=== PATIENT | male | born 1950 | race Caucasian/White ===

== ENCOUNTER 2019-12-18 09:00 | Inpatient (IN) | payer MEDICARE, BC ==
[2020-02-18] MEDS ORDERED: Fentanyl 100 MCG/2 ML VIAL ONE ×3 (06:28→14:03)
[2020-02-18] MEDS ORDERED: Famotidine/PF 20 mg/2ml Vial ONE (06:29)
[2020-02-18] MEDS ORDERED: SUGAMMADEX SODIUM 500 MG/5 ML VIAL ONE (06:29)
[2020-02-18] MEDS ORDERED: cefOXitin Sodium/Dextrose,Iso 1 GM in Premix Bag 1 BAG IVPB SCH (06:30)
[2020-02-18] MEDS ORDERED: Gentamicin Sulfate 80 MG in Premix Bag 1 BAG IVPB SCH (06:30)
[2020-02-18] MEDS ORDERED: Iothalamate Meglumine 60% 50 ML VIAL FS ONE (06:49)
[2020-02-18] MEDS ORDERED: Phenylephrine 10 MG/ML VIAL ONE (06:49)
[2020-02-18] MEDS ORDERED: Dexamethasone 4 mg/ml Vial ONE (06:57)
[2020-02-18] MEDS ORDERED: Midazolam HCl 2 mg/2 ml Vial ONE (06:57)
[2020-02-18] MEDS ORDERED: Rocuronium Bromide 50 MG/5 ML VIAL ONE (08:58)
[2020-02-18] MEDS ORDERED: Dexamethasone 20 MG/5 ML VIAL ONE (11:10)
[2020-02-18] MEDS ORDERED: Rocuronium Bromide 10 MG/ML (10ML VIAL) ONE (11:10)
[2020-02-18] MEDS ORDERED: Bupivacaine HCl 0.5%/Epinephrine 1:200,000/PF 30 ml Vial ONE (11:10)
[2020-02-18] MEDS ORDERED: Lidocaine 1% PF 5 ML VIAL ONE (11:10)
[2020-02-18] MEDS ORDERED: PROPOFOL 200 MG/20 ML VIAL ONE (11:10)
[2020-02-18] MEDS ORDERED: Ondansetron PF 4 MG/2 ML Vial ONE (11:10)
[2020-02-18] MEDS ORDERED: Metoclopramide HCl 10 MG/2 ML VIAL ONE (11:10)
[2020-02-18] MEDS ORDERED: Ketorolac Tromethamine 30 MG/ML VIAL ONE (11:10)
[2020-02-18] MEDS ORDERED: B & O ONE (13:01)
[2020-02-18] MEDS ORDERED: Ondansetron HCl/PF 4 MG/2 ML Vial IVP PRN (13:27)
[2020-02-18] MEDS ORDERED: Promethazine HCl 25 MG/ML VIAL IM PRN (13:27)
[2020-02-18] MEDS ORDERED: Promethazine HCl 25 MG/ML VIAL SLOW IVP PRN (13:27)
--- NOTE | 2020-02-18 14:44 | OP ---
DATE OF PROCEDURE: 02/18/2020 SERVICE: Urology. PREOPERATIVE DIAGNOSIS: Prostate cancer. POSTOPERATIVE DIAGNOSIS: Prostate cancer. PROCEDURES PERFORMED: 1. Robot-assisted laparoscopic prostatectomy, non-nerve sparing with bilateral pelvic lymph node dissection. 2. Cystoscopy and bilateral 6 x 26 double-J ureteral stent placement. INDICATION FOR PROCEDURE: Mr. Murphy is a 69-year-old white male, who initially had presented to md with elevated PSA and a diagnosis of prostate cancer, which was made by Dr. Alston, after a prostate biopsy. His PSA had come back at 9.7 with a Christopher score of 4 + 3 in multiple cores. We discussed his options including radiation and surgery, and the patient elected to proceed forward with robot-assisted laparoscopic prostatectomy. Risks and benefits of the surgery were discussed and he has agreed to proceed forward. DESCRIPTION OF PROCEDURE: After identification of armband and verification of consent, the patient was brought back to the operating room, where he underwent general anesthesia with endotracheal intubation. He was then placed in the dorsal lithotomy position and prepped and draped in usual sterile fashion. After appropriate time-out, a lubricated 22-Ugandan rigid cystoscope was introduced per urethra into the bladder. The prostate was hypertrophic as previously had been described on outpatient cystoscopy. The posterior bladder depression was less prominent on examination with cystoscopy today, but the ureteral orifices were very close to the prostate. As I discussed with the patient previously, I elected to proceed forward with ureteral stent placement. The right ureteral orifice was then cannulated with a 0.035 Sensor wire up to the level of renal pelvis. A 6 x 26 double-J stent was advanced over the Sensor wire up to the level of renal pelvis and then the wire was removed leaving a good curl in the kidney and a good curl in the bladder. The procedure was then repeated on the left. However, the Sensor wire would not go as it was coiling in the distal ureter. We used an angled Glidewire which passed easily into the kidney. The ureteral stent 6 x 26 was then passed over the Glidewire into the kidney and then the wire was removed leaving a good curl in the kidney and a good curl in the bladder. The bladder was left full. The cystoscope was removed. The patient was then changed to low-lithotomy position and prepped and draped in usual sterile fashion again. He was then placed in Trendelenburg with all pressure points padded. In the low-lithotomy position, a 16-Ugandan Smith catheter was introduced at the beginning of the case. Once the bladder was drained, entry into the peritoneum was gained via Veress needle at the umbilicus with insufflation carried out under low pressure and high flow until pneumoperitoneum was achieved. A small incision was made below the umbilicus using an 11-blade. A 12-mm trocar was placed into the peritoneum, and a camera was then placed inside to inspect the peritoneum which looked favorable for prostatectomy. Both medial and umbilical ligaments were in their normal location. There were no concerning findings. No bowel or vascular injuries were identified. The additional ports were then placed in the usual robotic port placement with two 8-mm robotic arms on the left and a 15-mm robotic arm on the right with an 11-mm assistant counsel port and a 5-mm system port also on the right. The robot was then docked, and the robotic portion of the surgery was then begun. We started with a posterior approach. The colon was mobilized along the left pelvic sidewall to allow for cephalad retraction. An incision was made using monopolar cautery on the anterior reflection of the rectovesical space. Dissection was carried out in that space until the vas deferens were identified. The vas and seminal vesicles were then dissected using a combination of blunt dissection and monopolar cautery. Once these were completely dissected out, anterior dissection was performed until they were flush with the prostate. The posterior space was then developed below Den[place]villiers on the perirectal fat until there was a nice plane developed posteriorly as well. There was minimal bleeding encountered, so we did not leave any type of Surgicel. The attention was then turned to the anterior abdominal wall. Incisions were made on the lateral aspect of each umbilical ligament into the space of Retzius, which were then dissected free until the pubic arch was identified. The umbilical ligaments were then divided using bipolar cautery and then monopolar cautery, arching over to connect the 2 umbilical ligaments on the anterior abdominal wall. Dissection was then carried out anterior to the bladder along the space of Retzius until the entire bladder had been dropped and the pubic arch was identified. The periprostatic space was then dissected with a combination of blunt dissection and monopolar cautery until both endopelvic fascias were identified. The superficial venous complex was controlled using bipolar cautery and division. The preprostatic fat was off the prostate and then submitted for routine pathologic evaluation. The patient's right endopelvic fascia was then opened and the periprosthetic space developed. The left was then in the same fashion and developed as well. The puboprostatic ligaments were both divided after cautery with bipolar and then monopolar for division. This left a relatively thin dorsal venous complex. The vascular stapler was brought in and clamped over the dorsal venous complex. On initial clamp, there did seem to be some difficulty passing the catheter back in, so the stapler was repositioned a little bit more proximal, which resulted in easy passage of the catheter indicating no urethral compression. The stapler was then fired, resulting in nice division of the DVC without any bleeding. Attention was then turned to the bladder neck. Given how the close proximity of the ureters as well as a posterior depression of the bladder, I did opt to make a wider bladder neck than normal. Dissection was carried down a little bit more proximal than a standard dissection plane until we came down towards the tip of the balloon. The bladder neck was not excessively large, but it did allow for nice visual entry of both stents emanating from the ureters and the remainder of the posterior dissection. The posterior aspect of the prostate was then divided using monopolar cautery until the previously dissected space posteriorly was identified. The seminal vesicles were then brought up and the pedicles thinned out. The posterior plane was developed further. The pedicles were divided on each side using the vessel sealer approximately 2[address] the apex of the prostate. At that point, the sharp scissors were then just used without cautery to divide the remainder of the pedicles to avoid thermal injury to the rectum, which is in close proximity of that location. The urethra was then dissected free and divided extremely proximal as close to the prostate as possible to preserve urethral length and sphincter control. Once the urethra was fully divided, the rectourethralis muscles were then divided using sharp dissection to avoid thermal injury to the rectum. Ultimately, the prostate was able to be freed and deposited into the right pericolic gutter. There was some bleeding noted at the left and right aspects near the distal aspect of the pedicle, which were controlled with touch bipolar, which resulted in good control of bleeding. Surgicel was then laid down and the lymph node dissection was performed. Bilateral pelvic lymph node dissections were performed with a combination of the monopolar scissors, [place] bipolars and vessel sealer when appropriate. The margins of the lymph node dissection on both sides were the iliac vein cephalad, superior pubic ramus inferiorly, circumflex femoral vein anteriorly, and the obturator nerve posteriorly. All fatty tissue containing lymph nodes were removed and submitted for pathologic evaluation. At this point, I did elect to narrow down the bladder neck as it did seem rather large and had some thin areas. Using a 2-0 Vicryl on an SH needle, sutures were placed on the right lateral aspect and the 12 o'clock position on the bladder neck until the bladder neck appeared a little bit smaller and more circumferential. A Gokul stitch was then placed using a 2-0 V-Loc through the rectourethralis and the base of the bladder and then approximated to line up and provide posterior support for the anastomosis. At this point, we were able to reach inside the bladder and remove both stents so that the patient would not have to keep these in during his recovery. The anastomosis was then completed using a 2-0 V-Loc circumferentially in a running fashion starting at approximately 5 o'clock and using 2 arms to meet at approximately 11 o'clock. The anastomosis was then water tested by passing a catheter in without the balloon inflated and filling up the bladder to approximately 200 to 300 mL, at which point there was no identifiable leak at the anastomosis site. The catheter was then switched out for the final 18-Ugandan Smith catheter and 15 mL of sterile water was placed into the balloon. The anastomosis sutures were tied off. Tisseel spray was then placed around the periprosthetic space and along bilateral pelvic lymph nodes. The prostate and fatty tissues that were still left within the body were deposited into an Endopouch bag and then kept off to the side. The third arm was removed and a #19 KINGS drain was placed into the peritoneum and placed posterior to the bladder. The robot was then undocked and the Endopouch handle was passed through the peritoneum from the assistant counsel port through the camera port. The 15-mm trocar site and 11-mm assistant counsel trocar sites were then closed with a Robert-Kiah until there was no ability to pass a finger digitally through the incision site. The KINGS was then sutured down using a 3-0 nylon. The incision in the center where the camera port was, was extended laterally to allow for delivery of the prostate and lymph node tissues bilaterally. This had all been sent for routine pathologic evaluation. The fascia was then closed in a series of [id number] interrupted 0 Vicryl on a UR6 needle. This was then digitally palpated and there were no gaps found after complete closure of the fascia. There was a lot of fatty tissue in between to avoid the space. I did close the potential space using another 0 Vicryl. The skin was then closed with a 4-0 Monocryl in a subcuticular fashion and all port sites. The catheter was irrigated and found to be light pink. This was then hooked up to gravity drainage. The KINGS was hooked up to bulb suction. B and O suppository was placed into the patient's rectum by the surgeon with no blood on the examining gloved finger. The patient was then taken out of positioning, awakened, and taken to PACU for recovery in stable condition. COMPLICATIONS: None. ESTIMATED BLOOD LOSS: 100 mL. RETAINED TUBES AND DRAINS: An 18-Ugandan Smith catheter, #19 KINGS drain. SPECIMENS: Prostate, bilateral seminal vesicles, bilateral pelvic lymph nodes, and preprostatic fat. DISPOSITION: The patient will be kept in the hospital overnight. We will plan a KINGS removal tomorrow so long as the amount of drainage is not excessive and he has met all criteria for discharge to go safely home. Job ID: [id number]
[2020-02-18] MEDS ORDERED: Mag-Al 1200 mg/1200 mg/30 ML UDCUP PO PRN (15:07)
[2020-02-18] MEDS ORDERED: Hyoscyamine Sulfate SL 0.125 mg Tablet SL PRN (15:07)
[2020-02-18] MEDS ORDERED: diphenhydrAMINE 25 MG CAP PO PRN (15:07)
[2020-02-18] MEDS ORDERED: Sodium Chloride 0.9% 1,000 ML IV SCH (15:07)
[2020-02-18] MEDS ORDERED: Oxybutynin 5 MG TAB PO PRN (15:07)
[2020-02-18] MEDS ORDERED: hydrALAZINE 20 MG/ML VIAL SLOW IVP PRN (15:07)
[2020-02-18] MEDS ORDERED: Ondansetron PF 4 MG/2 ML Vial IVP PRN (15:07)
[2020-02-18] MEDS ORDERED: oxyCODONE 5 MG TAB PO PRN (15:07)
[2020-02-18] MEDS ORDERED: Fentanyl 100 MCG/2 ML VIAL SLOW IVP PRN (15:07)
[2020-02-18 15:52] VITALS: BMI 30.1
[2020-02-18] MEDS: traMADol HCl 50 MG TAB PO SCH ×2 (16:25→20:30)
[2020-02-18] MEDS ORDERED: cefOXitin 1.5 GM in Sodium Chloride 0.9% 100 ML IVPB SCH (17:00)
[2020-02-18] MEDS: Acetaminophen 500 MG TAB PO SCH ×2 (17:44→23:37)
[2020-02-18] MEDS: cefOXitin Sodium/Dextrose,Iso 1 GM in Premix Bag 1 BAG IVPB SCH (18:08)
[2020-02-18] MEDS: Docusate 100 MG CAP PO SCH (20:30)
[2020-02-18] MEDS: Ketorolac Tromethamine 30 MG/ML VIAL IVP SCH (21:55)
[2020-02-19] MEDS: cefOXitin Sodium/Dextrose,Iso 1 GM in Premix Bag 1 BAG IVPB SCH ×2 (01:41→11:21)
[2020-02-19] MEDS: traMADol HCl 50 MG TAB PO SCH ×3 (03:35→15:01)
[2020-02-19 05:16] LABS: Anion Gap 14 mmol/L (10-20); BUN (Urea Nitrogen) 12 mg/dL (8.4-25.7); Calc. Creatinine Clearance 84 mL/min (70-130); Calcium 8.2 mg/dL (7.8-10.44); Carbon Dioxide 20 mmol/L (23-31); Chloride 105 mmol/L (98-107); Estimated GFR-MDRD 62; Glucose 115 mg/dL (80-115); Potassium 4.8 mmol/L (3.5-5.1); Sodium 134 mmol/L (136-145)
[2020-02-19 06:15] LABS: Band 23 % (5-11); Hemoglobin 14.1 g/dL (14.0-18.0); Lymphocytes 6 % (21-51); MDiff Complete? YES; Mean Corpuscular HGB CONC 33.2 g/dL (32.0-36.0); Mean Corpuscular Volume 99.3 fL (78.0-98.0); Mean Platelet Volume 7.1 fL (7.4-10.4); Monocytes 8 % (0-10); Neutrophil 63 % (42-75); Platelet Count 258 thou/uL (130-400); Platelet Morphology Comment Appears Adequate; RBC Distribution Width 11.2 % (11.5-14.5); Red Blood Cell (RBC) Count 4.27 mill/uL (4.70-6.10); White Blood Cell (WBC) Count 25.2 thou/uL (4.8-10.8)
[2020-02-19] MEDS: Ketorolac Tromethamine 30 MG/ML VIAL IVP SCH ×2 (06:18→15:00)
[2020-02-19] MEDS: Acetaminophen 500 MG TAB PO SCH ×2 (06:19→11:21)
[2020-02-19] MEDS: Docusate 100 MG CAP PO SCH (08:14)
[2020-02-19 11:57] VITALS: BP 129/82; TEMP 98.1
--- NOTE | 2020-02-19 16:48 | PRG ---
DATE OF SERVICE: 02/19/2020 SUBJECTIVE: The patient states he is feeling fine. His pain is approximately 4 /10. He feels this is adequately controlled. He is not taking any additional pain medication. He is tolerating a liquid diet. He states that he is hungry and ready to eat a regular diet. No flatus. No nausea or vomiting. No chest pain or shortness of breath. OBJECTIVE: VITAL SIGNS: Temperature 98.1, pulse 97, respirations 18, blood pressure 129/82, and saturation 96% on room air. GENERAL: No apparent distress. Communicative and alert. CARDIOVASCULAR: Regular rate and rhythm. ABDOMEN: Soft, nontender, and nondistended. Positive bowel sounds. Incision is clean, dry, and intact. KINGS with scant serosanguineous output, it was recently emptied. GENITOURINARY: Smith catheter secured currently with light red translucent urine without clots. EXTREMITIES: No clubbing, cyanosis, or edema. LABORATORY EVALUATION: Full set of labs are in the [facility], which I have reviewed. Of note, the patient's white count is 25.2, hemoglobin of 14.1. Creatinine of 1.17. KINGS was sent for creatinine prior to removing since bladder neck reconstruction was performed. KINGS creatinine came back at 5.6. ASSESSMENT AND PLAN: A 69-year-old white male with prostate cancer, status post robotic prostatectomy, postop day 1. There is evidence of urine within the peritoneum. This either could be due to a urine leak, which is less likely secondary to patient being leak tested intraoperatively and finding no actual leak or likely leftover urine from his surgery, which is just now coming out. In either case, there is some concern for a possible urine leak, so I will go ahead and leave the KINGS in as well as his Smith catheter. We will have him monitor his KINGS output over the next week and if it decreases enough, I think we can take the KINGS drain out. This should avoid paralytic ileus and urine within the peritoneum. The patient has already been up out of bed. He is tolerating a clear diet and thinks he could tolerate regular food. He has already demonstrated that he can walk around and the rest of his labs look okay. While his white count is significantly elevated, this can be seen postoperatively and the patient has no other signs or symptoms on physical exam or by history for infection. His incisions look good. I think he can be discharged home today and can follow up on an outpatient basis. He should go home with his Smith catheter and KINGS drain. Job ID: [id number] MTDD
--- NOTE | 2020-02-22 09:35 | DIS ---
DATE OF ADMISSION: 02/18/2020 DATE OF DISCHARGE: 02/19/2020 ADMITTING PHYSICIAN: Dr. Bautista. DISCHARGING PHYSICIAN: Dr. Bautista. ADMITTING DIAGNOSIS: Prostate cancer. DISCHARGE DIAGNOSIS: Prostate cancer. PROCEDURE PERFORMED WHILE INPATIENT: Cystoscopy with bilateral ureteral stents and robot-assisted laparoscopic prostatectomy, and bilateral pelvic lymph node dissection. BRIEF HISTORY: Mr. Murphy is a 69-year-old white male with prostate cancer, [place] 4 + 3, PSA of 9.7, diagnosed by Dr. Alston, who was referred to me for robotic prostatectomy. He is now coming in for the surgery. The full H and P can be found in the scanned portion of the [employer] system. HOSPITAL COURSE: After surgery (please see operative note for details), the patient was admitted to the hospital for postoperative recovery. He was placed on the ERAS protocol with tramadol, Tylenol, and Toradol scheduled. He had oxycodone and fentanyl needed p.r.n., but he did not require any of these. He was started on a clear liquid diet immediately, which he tolerated well without any problems. He was advanced to a regular diet, which he was able to tolerate without any issues. He was able to get up and walk around on his own. He demonstrated adequate ability to take care of his catheter. His pain was adequately controlled and stated that he was ready to go home. Due to reconstruction of the bladder neck, we did check a KINGS for creatinine, which came back elevated at 5.6, which was higher than serum. While it is still not convinced that this is due to a urine leak at the anastomosis site, I suspect this is most likely left over urine within the peritoneum. Nonetheless, I told the patient it would be best to keep the KINGS drain in as well as Smith catheter, and we could remove the KINGS drain at a later date when output had decreased. The patient was okay with this, and his prescriptions were sent in. Discharge instructions were explained to him, and he was discharged home. DISPOSITION: Discharge to home with Smith catheter. DISCHARGE CONDITION: Good. DISCHARGE MEDICATIONS: Include resuming his home medications which is just a multivitamin. In addition, he will be given; 1. [place] 5/325 mg p.o. q.4 hours p.r.n. pain. 2. Colace 100 mg p.o. daily. 3. Levofloxacin 500 mg p.o. x1 to take 2 hours prior to his followup appointment. DISCHARGE INSTRUCTIONS: Discharge instructions were explained the patient as well as detailed instructions for catheter care, bathing, dieting, and activity. I will see him back in approximately 10 to 11 days for a followup, at which time, we will plan to remove his KINGS drain catheter so long as his KINGS drain is putting out only small amounts of urine. Job ID: [id number]
== END 2020-02-19 16:30 | disposition home or self-care (01) | DRG 708 ==
LOC: SURG A 02-18 05:44 → EDSTATUS 02-18 09:00 → SJJU 02-18 15:20
PROVIDERS: ADMIT Urology; ATTEND Urology
PROC: 0VT04ZZ Resection of Prostate, Percutaneous Endoscopic Approach (ICD-10-PCS; principal; 2020-02-18)
PROC: 07BC4ZZ Excision of Pelvis Lymphatic, Percutaneous Endoscopic Approach (ICD-10-PCS; 2020-02-18)
PROC: 0T788DZ Dilation of Bilateral Ureters with Intraluminal Device, Via Natural or Artificial Opening Endoscopic (ICD-10-PCS; 2020-02-18)
PROC: 8E0W4CZ Robotic Assisted Procedure of Trunk Region, Percutaneous Endoscopic Approach (ICD-10-PCS; 2020-02-18)
DX: C61 Malignant neoplasm of prostate (principal)
CPT/HCPCS: 36415; 80048; 82570; 85025; 86850; 86900; 86901; C1758; C1769; J0670; J0694; J1100; J1885; J2001; J2250; J2370; J2405; J2704; J2765; J3010; S0028

== ENCOUNTER 2020-02-10 06:40 | Outpatient (CLI) | payer MEDICARE, BC ==
[2020-02-10 10:23] LABS: Hemoglobin 14.8 g/dL (14.0-18.0); Mean Corpuscular HGB CONC 33.3 g/dL (32.0-36.0); Mean Corpuscular Hemoglobin 32.9 pg (27.0-31.0); Mean Corpuscular Volume 98.8 fL (78.0-98.0); Platelet Count 307 thou/uL (130-400); RBC Distribution Width 11.3 % (11.5-14.5); Red Blood Cell (RBC) Count 4.51 mill/uL (4.70-6.10); White Blood Cell (WBC) Count 7.2 thou/uL (4.8-10.8)
[2020-02-10 10:24] LABS: Bacteria/HPF None Seen HPF (None Seen); Bilirubin Negative (Negative); Blood, Urine Negative (Negative); Clarity Clear (Clear); Glucose, Urine (Dipstick) Normal (Negative); Leukocyte Negative Leu/uL (Negative); Nitrite Negative (Negative); Protein, Urine (Dipstick) Negative (Neg-Trace); RBC/HPF 0-3 HPF (0-3); Squamous Epithelial 0-3 HPF (0-3); Urobilinogen Normal mg/dL (Less than 2); WBC/HPF 0-3 HPF (0-3)
[2020-02-10 10:33] LABS: INR-International Normal Ratio 0.9; PTT 28.2 SEC (22.9-36.1); Prothrombin Time 12.4 SEC (12.0-14.7)
[2020-02-10 10:45] LABS: ALT (SGPT) 21 U/L (8-55); AST (SGOT) 22 U/L (5-34); Albumin 4.4 g/dL (3.4-4.8); Alkaline Phosphatase 69 U/L (40-110); Anion Gap 13 mmol/L (10-20); BUN (Urea Nitrogen) 11 mg/dL (8.4-25.7); Bilirubin, Total 0.3 mg/dL (0.2-1.2); Calc. Creatinine Clearance 0 mL/min (70-130); Calcium 9.5 mg/dL (7.8-10.44); Carbon Dioxide 27 mmol/L (23-31); Chloride 103 mmol/L (98-107); Estimated GFR-MDRD 65; Globulin 2.9 g/dL (2.4-3.5); Glucose 97 mg/dL (80-115); Potassium 4.2 mmol/L (3.5-5.1); Protein, Total 7.3 g/dL (5.8-8.1); Sodium 139 mmol/L (136-145)
--- NOTE | 2020-02-10 22:46 | EKG ---
Test Reason : PREOP Blood Pressure : / mmHG Vent. Rate : 081 BPM Atrial Rate : 081 BPM P-R Int : 154 ms QRS Dur : 076 ms QT Int : 356 ms P-R-T Axes : 080 019 051 degrees QTc Int : 413 ms Poor data quality, interpretation may be adversely affected Normal sinus rhythm Normal ECG No previous ECGs available Confirmed by Yohannes PATEL ([id number]) on 02/10/2020 10:46:23 PM Referred By: VIPIN Confirmed By:Yohannes PATEL
== END 2020-02-10 06:41 | disposition home or self-care (01) ==
LOC: LABBT 06:40
PROVIDERS: ATTEND Urology
DX: Z01.818 Encounter for other preprocedural examination (principal); C61 Malignant neoplasm of prostate
CPT/HCPCS: 80053; 81001; 85027; 85610; 85730; 87086; 93005; 93010

== ENCOUNTER 2020-02-22 17:43 | Inpatient (IN) | payer MEDICARE, BC ==
[~2020-02-22 17:43] MED LIST: Iopamidol-370 76% 500 ML 1 ML ONE
[2020-02-22] MEDS ORDERED: Ondansetron PF 4 MG/2 ML Vial ONE (18:11)
[2020-02-22 18:23] LABS: Bilirubin Negative (Negative); Blood, Urine 3+ (Negative); Clarity Extra Turbid (Clear); Glucose, Urine (Dipstick) Normal (Negative); Leukocyte 500 Leu/uL (Negative); Nitrite Negative (Negative); Protein, Urine (Dipstick) 300 mg/dL (Neg-Trace); RBC/HPF Greater than 50 HPF (0-3); Squamous Epithelial None Seen HPF (0-3); Urobilinogen Normal mg/dL (Less than 2); WBC/HPF Greater than 50 HPF (0-3)
[2020-02-22 18:40] LABS: #Lymphocytes 0.9 thou/uL (1.20-3.40); #Monocytes 0.8 thou/uL (0.11-0.59); %Basophils 0.1 % (0.0-1.0); %Eosinophils 0.2 % (0.0-10.0); %Lymphocytes 13.7 % (21.0-51.0); %Monocytes 11.5 % (0.0-10.0); %Neutrophils 74.5 % (42.0-75.0); Hemoglobin 14.4 g/dL (14.0-18.0); Mean Corpuscular HGB CONC 33.3 g/dL (32.0-36.0); Mean Corpuscular Hemoglobin 32.9 pg (27.0-31.0); Mean Corpuscular Volume 98.8 fL (78.0-98.0); Mean Platelet Volume 7.3 fL (7.4-10.4); Platelet Count 265 thou/uL (130-400); RBC Distribution Width 11.4 % (11.5-14.5); Red Blood Cell (RBC) Count 4.39 mill/uL (4.70-6.10); White Blood Cell (WBC) Count 6.7 thou/uL (4.8-10.8)
[2020-02-22 19:06] LABS: Bacteria/HPF 3+ HPF (None Seen)
[2020-02-22 19:14] LABS: ALT (SGPT) 52 U/L (8-55); AST (SGOT) 26 U/L (5-34); Albumin 3.5 g/dL (3.4-4.8); Alkaline Phosphatase 56 U/L (40-110); Anion Gap 17 mmol/L (10-20); BUN (Urea Nitrogen) 25 mg/dL (8.4-25.7); Calc. Creatinine Clearance 0 mL/min (70-130); Calcium 9.8 mg/dL (7.8-10.44); Carbon Dioxide 24 mmol/L (23-31); Chloride 97 mmol/L (98-107); Estimated GFR-MDRD 62; Globulin 3.3 g/dL (2.4-3.5); Glucose 128 mg/dL (80-115); Lipase 7 U/L (8-78); Potassium 4.9 mmol/L (3.5-5.1); Protein, Total 6.8 g/dL (5.8-8.1); Sodium 133 mmol/L (136-145)
[2020-02-22] MEDS ORDERED: Benzocaine 20% Spray 60 ML CAN ONE (19:55)
[2020-02-22] MEDS ORDERED: Lidocaine Viscous Sol 2% 15 ml UD Cup ONE (19:55)
--- NOTE | 2020-02-22 20:36 | CT ---
CT ABDOMEN AND PELVIS WITH IV CONTRAST: Date: 02-22-2020 Provided Clinical History: Nausea, vomiting, PO intolerance. History of recent prostatectomy. FINDINGS: The visualized lung bases are clear of significant opacity. Pneumoperitoneum is noted. There are multiple foci of subcutaneous gas within the abdominal wall, gre atest left laterally. There is a drainage catheter extending percutaneously, entering at the left low er quadrant and tip terminating in the right lower quadrant. A Smith catheter is noted in place. The urinary bladder is decompressed. There are fat stranding changes seen within the pelvis rather diffus genoveva. Sigmoid colonic diverticulosis changes are seen. There are multiple dilated loops of fluid and gas filled small bowel, predominately involving the jej unum and proximal ileum with gradual tapering of the more normal caliber distally in the region of th e mid to distal ileum. The colon demonstrates stool within as well as gas. The solid abdominal organs demonstrate an unremarkable CT appearance. There is no significant free ab dominal fluid present. The osseous structures demonstrate no concerning lytic or blastic lesions. IMPRESSION: 1. Pneumoperitoneum, presumably on the basis of indwelling catheter. 2. Numerous loops of dilated gas and fluid filled small bowel without abrupt discrete transition zone . Findings may reflect ileus versus low grade obstruction. 3. Generalized fat stranding changes in the pelvis, presumably on the basis of the provided clinical history of recent surgical change in this region. POS: DARCIE
[2020-02-22] MEDS ORDERED: Morphine 4 MG/ML VIAL ONE (20:50)
[2020-02-22 21:38] LABS: Lactic Acid 2.1 mmol/L (0.5-2.2)
[2020-02-22] MEDS ORDERED: Morphine 4 MG/ML VIAL SLOW IVP PRN (21:43)
--- NOTE | 2020-02-22 22:08 | RAD ---
PORTABLE CHEST: Date: 02-22-2020 Provided Clinical History: NG tube placement. FINDINGS: Cardiac and mediastinal silhouette is within normal limits. Lungs appear clear. No pleural fluid or p neumothorax apparent. Enteric catheter is noted, the tip projects over the left upper quadrant. The l musa apices are excluded, limiting evaluation for pneumothorax. IMPRESSION: As above. POS: DARCIE
[2020-02-22] MEDS: Sodium Chloride 0.9% 1,000 ML IV SCH (22:14)
[2020-02-23] MEDS: Sodium Chloride 0.9% 1,000 ML IV SCH ×4 (05:33→18:24)
[2020-02-23] MEDS ORDERED: Ondansetron PF 4 MG/2 ML Vial IVP PRN (08:16)
[2020-02-23] MEDS ORDERED: Morphine 4 MG/ML VIAL IV PRN (08:17)
[2020-02-23] MEDS: cefTRIAXone\\ROCEPHIN 1 GM in Sodium Chloride 0.9% 100 ML IVPB SCH (08:50)
[2020-02-23] MEDS ORDERED: Chloraseptic Spray 180 ml Bottle PO PRN (08:53)
--- NOTE | 2020-02-23 09:09 | HP ---
CHIEF COMPLAINT ON ADMISSION: Postoperative ileus. HISTORY OF PRESENT ILLNESS: The patient is a 69-year-old male, who underwent radical prostatectomy on 02/18/2020. He had a typical postoperative course and had a good bowel movement on 02/18. However, since that time, he has had increasing abdominal pain, distention, tenderness. No more bowel movements until finally the pain became so great. He came to the ER for further evaluation and the reason for his surgery was prostate cancer. His surgeon was Dr. Devon Bautista and the surgery was done robotically. Beginning the day prior to admission, the nausea became extreme with vomiting and by the time he came to the emergency room, he was unable to hold anything down orally and now he has hiccups, which are extremely painful as well. In the ER, CT scan confirmed the concern for postop ileus versus intraabdominal wound infection. Ward-Mai drain is present and draining pink serosanguineous fluid. There are bowel sounds present at this time, but the patient is unable to pass flatus. He is put in for further evaluation. PAST MEDICAL HISTORY: Significant for the aforementioned prostate cancer, for which he just underwent the radical prostatectomy. Other than that, his medical history is benign. His tetanus immunizations are up-to-date. Pneumococcal vaccine is up-to-date. PAST SURGICAL HISTORY: The only surgery has been the prostatectomy. PSYCHIATRIC HISTORY: Denied. SOCIAL HISTORY: Does not drink alcoholic beverages or smoke. ALLERGIES: CODEINE, WHICH IS MAINLY A SIDE EFFECT OF UPSET STOMACH AND NAUSEA. MEDICATIONS: None. REVIEW OF SYSTEMS: CONSTITUTIONAL: Significant for fatigue, but no fever or chills. HEENT: No drainage from eyes, ears, nose, or throat. CHEST: Denies chest pain or palpitations. RESPIRATORY: Denies cough or shortness of breath. Gastrointestinal: Significant for nausea, vomiting, right upper quadrant abdominal pain. GENITOURINARY: Significant for Smith in place with mild blood in urine. MUSCULOSKELETAL: Denies any joint redness, pain, stiffness, or swelling. SKIN: No new rashes or lesions. Ecchymotic areas of bruising noted at incision sites. NEUROLOGIC: Mentally alert. Denies weakness, blurred vision, or headaches. PSYCHIATRIC: Denies depression or anxiety at this time. PHYSICAL EXAMINATION: VITAL SIGNS: At the time of admission, blood pressure 155/101, pulse 107, respirations 19, and temperature 98.2. Pain at 7/10. O2 saturation 99% on room air. GENERAL: This is a well-developed, well-nourished, male, alert, oriented, cooperative. HEENT: Normocephalic, atraumatic. Pupils are equal, round, and reactive to light. Extraocular muscles are intact. TMs, nares, and pharynx clear. NECK: Supple. Trachea midline. CHEST: Clear to auscultation. HEART: Regular rate and rhythm. Tachycardic. ABDOMEN: Diffuse incisions noted. Healing slowly with ecchymosis. Tender to palpation with guarding and mild rebound. There is right upper quadrant tenderness. There are bowel sounds noted, high-pitched in all quadrants. GENITOURINARY: Normal circumcised male with Smith in place. Both testicles down. EXTREMITIES: Without clubbing, cyanosis, or edema. SKIN: With the aforementioned incision sites and bruising, otherwise no acute changes. NEUROLOGICAL: Cranial nerves are intact, unable to test gait and cerebellar function. Sensory exam is grossly intact. Mental status is clear and at baseline. LABORATORY DATA: Lab work thus far shows WBC 6.7, hemoglobin 14.4, hematocrit 43.3 with platelets at 265. Sodium 133, potassium 4.9, chloride 97, CO2 is 24, BUN 25, creatinine 1.17 with a GFR 62, and glucose 128. Lactic acid 2.1 x2. Liver functions unremarkable. Calcium 9.8. Urinalysis shows 3+ blood, ketones are noted, 500 leukocyte esterase with wbc's greater than 50. ASSESSMENT: 1. Postoperative ileus - mild. Bowel sounds are present. 2. Urinary tract infection, creating possible mild ileus due to its severity. 3. Prostate cancer, status post prostatectomy, postoperative day #5. PLAN: Will be to use antibiotics for the urinary tract infection. Can keep his bowels at rest by n.p.o. status and NG tube and serially re-evaluate the patient. Job ID: [id number]
[2020-02-23] MEDS: Pantoprazole 40 MG VIAL IVP SCH ×2 (11:04→23:16)
[2020-02-23] MEDS ORDERED: Morphine 2 MG/ML SYRINGE SLOW IVP PRN (13:50)
[2020-02-23] MEDS ORDERED: Ibuprofen 600 MG TAB PO PRN (16:40)
--- NOTE | 2020-02-23 18:19 | PRG ---
DATE OF SERVICE: 02/23/2020 SUBJECTIVE: The patient states he is no longer nauseated. He is still having a mild amount of pelvic discomfort after his surgery. He has not passed any gas. He unfortunately was readmitted to the hospital after he began vomiting on Saturday. He was found on CT scan to have a postoperative ileus and had an NG tube placed. This continues to put out a moderate amount of succus as reported below. OBJECTIVE: VITAL SIGNS: Temperature 98.4, pulse 84, respirations 20, blood pressure 156/74, saturation 98% on room air. GENERAL: No apparent distress, communicative, alert. HEENT: NG tube in place draining brownish succus. CARDIOVASCULAR: Regular rate and rhythm. ABDOMEN: Soft, nondistended. Hypoactive bowel sounds. Incision is clean, dry, and intact. Mild ecchymosis. Mildly tender to palpation. : Smith catheter in place secured with draining clear yellow urine. EXTREMITIES: No clubbing, cyanosis, or edema. LABORATORY EVALUATION: A full set of labs are in the [facility] system, which I have reviewed. Of note, the patient's white count is 6.7, hemoglobin of 14.4, creatinine of 1.17, KINGS for creatinine is 1.05. In's and out's: Smith has put out 500 mL. NG tube was put out 800 mL. KINGS drain has put out 80 mL. ASSESSMENT AND PLAN: A 69-year-old white male, status post robot assisted laparoscopic prostatectomy, postoperative day 5 with postoperative ileus. We would recommend continuing the NG tube for the current time until the amount of succus decreases. Potentially remove tube tomorrow if the succus amount is less. His KINGS has no evidence of urine leak anymore and is only putting out small amounts of fluid. I would recommend removal of the KINGS drain, which will help limit inflammation and improve his resolution of his ileus. Narcotic pain medication should be discontinued, but he can have anti-inflammatories and acetaminophen, which should not interfere with his ileus recovery. He should also ambulate as much as possible. Once he begins passing flatus, we can start clear liquids and then progress to a regular diet as tolerated until he is back to eating regular food at which point, I do feel that he will be able to be discharged home. Of note, the patient's pathology results came back today, which I have discussed with the patient. For now, everything looks good and we will plan for PSA in approximately 6 weeks. Job ID: [id number]
--- NOTE | 2020-02-23 18:51 | CON ---
DATE OF CONSULTATION: 02/23/2020 CONSULTING PHYSICIAN: Garrett Yung MD REASON FOR CONSULTATION: Suspected postoperative ileus/abdominal pain. HISTORY OF PRESENT ILLNESS: The patient is a 69-year-old very pleasant white male. He underwent a robotic prostatectomy per Dr. Bautista on February 17. He was discharged home the following day. There was an elevated creatinine level in drain output of fluid and therefore he was discharged with his Ward-Mai drain in place. His pathology revealed his cancer was T2N0. He had noted over the past few days that he developed progressive abdominal discomfort and bloating and eventually began vomiting, at which time he returned to the operating room. He notes that he has been taking his prescribed tramadol on schedule every 6 hours. He denies any recent bowel function. In the emergency room, he had a CT scan performed, which revealed findings consistent with a postoperative ileus with distention of small bowel without definite transition point. LABORATORY STUDIES: Revealed a normal white blood cell count of 6.7 with a hemoglobin of 14.4. His electrolytes showed mildly decreased sodium and chloride levels. His fluid creatinine within the drain is 1.0 (down from 5.6 four days ago). PAST MEDICAL HISTORY: Significant for prostate cancer. PAST SURGICAL HISTORY: None other than the prostatectomy. MEDICATIONS: None. ALLERGIES: CODEINE. SOCIAL HISTORY: He is with 2 children. He is retired from working at the [employer]. He does not drink or smoke. REVIEW OF SYSTEMS: Otherwise unremarkable. FAMILY HISTORY: Noncontributory. PHYSICAL EXAMINATION: VITAL SIGNS: Temperature is 98.3, pulse 78, blood pressure 143/82. GENERAL: A well-developed, well-nourished, pleasant white male, resting in bed, in no obvious distress. He is alert and oriented x3. Nasogastric tube is in place. It is noted that his nasogastric tube drained 800 mL after it was placed yesterday. Smith catheter is also in place draining clear urine. HEAD, EYES, EARS, NOSE AND THROAT: Unremarkable. NECK: Supple. LUNGS: Clear to auscultation throughout. CARDIAC: Regular rate and rhythm without murmur. ABDOMEN: Soft and nontender. Incisions are healing nicely. Dermabond is intact. Bowel sounds are present, hypoactive to normoactive. There is no evidence of tympany. RECTAL: Deferred. EXTREMITIES: Unremarkable. ASSESSMENT: The patient with resolving postoperative ileus. I flushed his nasogastric tube, it returned only clear fluid. This suggests that bilious fluid is progressing in anterograde fashion. He does have intact bowel sounds. I suspect that his problem is related to excessive use of tramadol at home. He understands the potential side effects of narcotics and is trying to avoid using any pain medication here in the hospital. As he has resumption of bowel sounds, I would recommend a small-bowel follow-through tomorrow. If contrast passes as I anticipate it will, then the nasogastric tube can be removed and his diet advanced. He is encouraged to ambulate today while he is in the hospital as well. He was started on Protonix. He is complaining of indigestion and reflux. Job ID: [id number]
[2020-02-23] MEDS: Acetaminophen 650 MG Suppository PR PRN (19:30)
[2020-02-24] MEDS: Ibuprofen 100 MG/5 ML UDCUP PER TUBE PRN ×2 (00:52→09:19)
[2020-02-24] MEDS: Sodium Chloride 0.9% 1,000 ML IV SCH ×3 (02:00→18:27)
[2020-02-24] MEDS: Acetaminophen 650 MG Suppository PR PRN ×3 (02:00→18:27)
[2020-02-24 05:51] LABS: Anion Gap 13 mmol/L (10-20); BUN (Urea Nitrogen) 28 mg/dL (8.4-25.7); Calc. Creatinine Clearance 50 mL/min (70-130); Calcium 8.4 mg/dL (7.8-10.44); Carbon Dioxide 26 mmol/L (23-31); Chloride 107 mmol/L (98-107); Estimated GFR-MDRD 40; Glucose 92 mg/dL (80-115); Potassium 4.7 mmol/L (3.5-5.1); Sodium 141 mmol/L (136-145)
[2020-02-24 06:28] LABS: Band 7 % (5-11); Hemoglobin 12.1 g/dL (14.0-18.0); Hypochromia SLIGHT = 6-15 cells (100X) (0-5/hpf); Lymphocytes 30 % (21-51); MDiff Complete? YES; Macrocytosis SLIGHT = 6-15 cells (100X) (0-5/hpf); Mean Corpuscular HGB CONC 31.4 g/dL (32.0-36.0); Mean Corpuscular Hemoglobin 31.9 pg (27.0-31.0); Monocytes 8 % (0-10); Neutrophil 55 % (42-75); Platelet Count 290 thou/uL (130-400); Platelet Morphology Comment Appears Adequate; RBC Distribution Width 11.6 % (11.5-14.5); White Blood Cell (WBC) Count 7.3 thou/uL (4.8-10.8)
[2020-02-24] MEDS: cefTRIAXone\\ROCEPHIN 1 GM in Sodium Chloride 0.9% 100 ML IVPB SCH (08:28)
[2020-02-24] MEDS: Pantoprazole 40 MG VIAL IVP SCH ×2 (10:00→22:47)
[2020-02-24] MEDS ORDERED: MD-Gastroview 120 ML BOT ONE (13:05)
--- NOTE | 2020-02-24 17:02 | RAD ---
Exam: Gastrografin small bowel HISTORY: Evaluate for small bowel obstruction versus ileus FINDINGS: Initial material control analyst radiograph demonstrates a nasogastric tube in the epigastric region. Multiple distended air-filled loops of small bowel. Paucity of gas in the colon. Patient was administered Gastrografin which opacifies multiple distended loops of small bowel. There is contrast opacifying th e colon on the 4 hour as well as the 5 hour 30 minute images. Incidental subcutaneous emphysema on the left lateral abdominal soft tissues is noted. IMPRESSION: No evidence of high-grade small bowel obstruction.
--- NOTE | 2020-02-24 17:07 | PRG ---
DATE OF SERVICE: 02/24/2020 SUBJECTIVE: Mr. Murphy is seen one day after my initial consultation yesterday. I felt that he had a resolving ileus. He had active bowel sounds yesterday. Even before his study was obtained today, he has had a history of loose bowel movements. I decided to proceed with the study anyways. Small-bowel follow-through was initiated this morning. After a couple of hours, he still had substantial evident dilated small bowel and the contrast had not passed. He was having some bowel movement, which was clearly not the contrast. I therefore ordered Clostridium difficile studies to see if this is perhaps . OBJECTIVE: VITAL SIGNS: On examination, afebrile. Vital signs are normal with a pulse of 60, blood pressure of . ABDOMEN: Soft and nontender. Incisions are healing nicely. Bowel sounds are present and normoactive. EXTREMITIES: Unremarkable. RECTAL: Exam is deferred. LABORATORY DATA: His CBC remains essentially normal with a white blood cell count of 7 and hemoglobin of 12. Chemistry panel reveals that his creatinine is elevated at 1.7 up from 1.2 at admission. ASSESSMENT AND PLAN: The patient with either a bowel obstruction or slowly resolving ileus. I will continue the small-bowel follow-through today and if necessary, obtain abdominal x-rays tomorrow as well. It would be unusual for a person, who has never had surgery prior to his robotic prostatectomy to have an obstructive process related to that surgery and I am hoping/anticipating that this will resolve spontaneously. Job ID: [id number]
--- NOTE | 2020-02-24 17:32 | PRG ---
DATE OF SERVICE: 02/24/2020 SUBJECTIVE: The patient reports that his KINGS drain was removed yesterday. He continues to have the NG tube. He had an abdominal x-ray today, which demonstrates no evidence of high-grade obstruction. The patient reports passing a lot of gas and having two episodes of liquidy bowel movements. He still does not have a strong appetite. OBJECTIVE: VITAL SIGNS: Temperature 97.9, pulse 64, respirations 16, blood pressure 167/95, saturation 94% on room. GENERAL: No apparent distress. Communicative and alert. CARDIOVASCULAR: Regular rate and rhythm. Normal S1 and S2. HEENT: NG tube in place with brownish succus in the canister. ABDOMEN: Soft and nondistended. Incision is clean, dry, and intact with surrounding ecchymosis. No evidence of infection or hernia. : Smith catheter in place, draining a turbid brown urine. EXTREMITIES: No clubbing, cyanosis, or edema. LABORATORY EVALUATION: The full set of labs is in the [employer] system, which I have reviewed. Of note, the patient's white count is 7.3, hemoglobin 12.1. Creatinine has increased up to 1.71. ASSESSMENT AND PLAN: A 69-year-old white male with postoperative ileus, which does appear to be somewhat resolving. Given his liquidy bowel movement, a Clostridium difficile antigen has been sent off, which is currently pending for the PCR. It does appear that he may have Clostridium difficile antigens present. At the current time, we would recommend ongoing management of his ileus by Dr. Reyes. Hopefully, he will be able to have his NG tube removed very soon as he is passing liquidy bowel movements, although it is unclear whether his small bowel is completely opened up at this point. From a genitourinary standpoint, the patient does have elevation in his creatinine. If this persists, I would recommend getting a renal ultrasound to ensure that there is no hydronephrosis and perhaps consideration of further replacement of his fluids. From my standpoint, he does appear to be doing well from a genitourinary standpoint other than the minor acute kidney injury. I will continue to follow along and make recommendations as appropriate. Job ID: [id number]
[2020-02-25] MEDS: Vancomycin 1 GM in Premix Bag 1 BAG IVPB SCH ×2 (00:49→12:06)
[2020-02-25] MEDS: Sodium Chloride 0.9% 1,000 ML IV SCH ×2 (00:49→09:36)
[2020-02-25] MEDS: Ibuprofen 100 MG/5 ML UDCUP PER TUBE PRN (06:45)
--- NOTE | 2020-02-25 08:57 | RAD ---
Abdomen one view HISTORY: Abdominal pain. Obstruction. COMPARISON: 02/24/2020 small bowel follow-through. FINDINGS: Contrast is now present throughout the colon without significant residual contrast in the s mall bowel. Gas distended small bowel loops in the left upper quadrant again demonstrated. Nasogastric tube in place. IMPRESSION : Continued passage of contrast. No evidence of obstruction.
[2020-02-25] MEDS ORDERED: Sodium Chloride 0.9% 1,000 ML IV SCH (11:07)
[2020-02-25] MEDS: Vancomycin HCl 25 MG/ML Oral PO SCH ×2 (12:06→17:50)
--- NOTE | 2020-02-25 12:30 | PRG ---
DATE OF SERVICE: 02/25/2020 SUBJECTIVE: The patient states he is feeling okay. He is still having bowel movements. His C diff test end up being positive, which probably would explain why he is having an ileus. He has good bowel sounds. He otherwise has no other complaints. OBJECTIVE: VITAL SIGNS: Temperature 98.6, pulse 57, respirations 16, blood pressure 158/82, saturation 95% on room air. GENERAL: No apparent distress. Communicative and alert. CARDIOVASCULAR: Regular rate and rhythm. ABDOMEN: Soft, nontender, and nondistended. Positive bowel sounds. Incision is clean, dry, and intact. GENITOURINARY: Smith catheter in place, draining mostly clear yellow urine. EXTREMITIES: No edema. LABORATORY EVALUATION: The patient's labs have not yet been drawn today. He does have a BMP ordered, which has yet to be drawn. ASSESSMENT AND PLAN: A 69-year-old white male with prostate cancer, status post robotic prostatectomy with postoperative ileus, which is likely secondary to Clostridium difficile infection. He is currently being treated with vancomycin for his Clostridium difficile. This will be managed by General Surgery, Dr. Reyes, who is following along with the patient. His nasogastric tube has already been removed. I will allow advancement of his diet by General Surgery. From my standpoint, there is not really much else for me to do on his current admission. I would like to know what his creatinine is to ensure that it is improving. If it continues to rise, I would recommend a renal ultrasound and consultation to Nephrology. It is extremely unlikely to be absorption of urine from the peritoneum as the patient did not have evidence of urine leak by his second Ward-Mai for creatinine. The patient already has followup with me as an outpatient for his void trial. Job ID: [id number]
--- NOTE | 2020-02-25 13:05 | PRG ---
DATE OF SERVICE: 02/25/2020 SUBJECTIVE: Mr. Murphy is hospital day #4 for his admission for what is still presumed to be a postoperative ileus. Yesterday, when he was having his small bowel follow-through, he began to have liquid bowel movements that were clearly not contrast related. I therefore submitted stool for Clostridium difficile, which have proved to be positive on both antigen and antibody. The patient had been placed on ceftriaxone when he was admitted and I discontinued this yesterday. The patient was started on oral vancomycin this morning. He tells me that he has had some multiple liquid bowel movements yesterday as the contrast passed through his colon. His nasogastric tube was removed this morning and I started him on a clear liquid diet. He has no specific complaints. OBJECTIVE: VITAL SIGNS: He is afebrile. Vital signs were essentially normal. LUNGS: Clear to auscultation. ABDOMEN: Soft with normoactive bowel sounds and incisions healing nicely. LABORATORY DATA: His CBC from yesterday was essentially normal, although his chemistry profile showed that his creatinine had elevated from 1.17 at the time of admission up to 1.71. I ordered a repeat basic metabolic panel for this morning and has not been obtained yet. Apparently, he was found to be a difficult stick by the stopboard assembler. ASSESSMENT AND PLAN: The patient with a postoperative ileus, that I suspect is secondary to his Clostridium difficile colitis. He will be maintained on oral vancomycin and a clear liquid diet for now. His x-ray from this morning still shows dilated loops of small bowel and I am therefore somewhat concerned about his ability to maintain adequate hydration with oral intake alone and for this reason, we will continue IV fluids. Repeat labs have been ordered for tomorrow. I encouraged him to drink liquids to the extent that he is comfortable. I also encouraged ambulation around the Surgical floor multiple times per day. Job ID: [id number]
[2020-02-25 14:14] LABS: Anion Gap 15 mmol/L (10-20); BUN (Urea Nitrogen) 21 mg/dL (8.4-25.7); Calc. Creatinine Clearance 80 mL/min (70-130); Calcium 8.5 mg/dL (7.8-10.44); Carbon Dioxide 22 mmol/L (23-31); Chloride 112 mmol/L (98-107); Estimated GFR-MDRD 68; Glucose 111 mg/dL (80-115); Potassium 4.3 mmol/L (3.5-5.1); Sodium 145 mmol/L (136-145)
[2020-02-25] MEDS ORDERED: D5 LR w/20 mEq KCL 1,000 ML IV SCH (16:00)
[2020-02-25] MEDS ORDERED: Preparation H HC 1% Cream 26 GM TUBE TOP PRN (16:32)
[2020-02-25] MEDS: Ibuprofen 600 MG TAB PO PRN (17:50)
[2020-02-25] MEDS ORDERED: Hydrocortisone 1% Cream 30 GM TUBE TOP PRN (18:00)
[2020-02-25] MEDS: Pantoprazole 40 MG VIAL IVP SCH (18:38)
[2020-02-25] MEDS: Acetaminophen 500 MG TAB PO PRN (22:06)
[2020-02-25] MEDS ORDERED: Vancomycin HCl 1 GM in Sodium Chloride 0.9% 250 ML 250 ML IVPB SCH (23:30)
[2020-02-26] MEDS: Vancomycin HCl 25 MG/ML Oral PO SCH ×5 (00:28→23:33)
[2020-02-26] MEDS: Ibuprofen 600 MG TAB PO PRN ×4 (02:22→23:33)
[2020-02-26 05:25] LABS: #Eosinphils 0.1 thou/uL (0.0-0.7); #Lymphocytes 1.7 thou/uL (1.20-3.40); #Neutrophils 7.3 thou/uL (1.40-6.50); %Basophils 0.2 % (0.0-1.0); %Eosinophils 0.8 % (0.0-10.0); %Lymphocytes 16.7 % (21.0-51.0); %Neutrophils 72.3 % (42.0-75.0); Hemoglobin 11.3 g/dL (14.0-18.0); Mean Corpuscular HGB CONC 33.2 g/dL (32.0-36.0); Mean Corpuscular Hemoglobin 33.2 pg (27.0-31.0); Mean Platelet Volume 6.9 fL (7.4-10.4); Platelet Count 277 thou/uL (130-400); RBC Distribution Width 11.3 % (11.5-14.5); Red Blood Cell (RBC) Count 3.39 mill/uL (4.70-6.10); White Blood Cell (WBC) Count 10.1 thou/uL (4.8-10.8)
[2020-02-26 05:32] LABS: Anion Gap 10 mmol/L (10-20); BUN (Urea Nitrogen) 19 mg/dL (8.4-25.7); Calc. Creatinine Clearance 80 mL/min (70-130); Calcium 7.9 mg/dL (7.8-10.44); Carbon Dioxide 25 mmol/L (23-31); Chloride 107 mmol/L (98-107); Estimated GFR-MDRD 68; Glucose 109 mg/dL (80-115); Potassium 3.3 mmol/L (3.5-5.1); Sodium 139 mmol/L (136-145)
[2020-02-26] MEDS ORDERED: Pantoprazole 40 MG VIAL IVP SCH (09:00)
[2020-02-26] MEDS ORDERED: Potassium Chloride 40 MEQ in Premix Bag 1 BAG IVPB SCH (11:45)
[2020-02-26] MEDS ORDERED: Potassium Chloride 40 MEQ in Sodium Chloride 0.9% 250 ML 250 ML IVPB SCH (11:45)
--- NOTE | 2020-02-26 13:35 | PDOC.GSPN ---
Surgery Progress Note: Subj - Subjective Narrative: Patient with severe abdominal cramping intermittently since 10:00 last night. He has not had any nausea or vomiting and still feels hungry and is still passing gas however. He does not feel like his abdomen is any more distended. No diarrhea since yesterday. No fevers or chills. Vital signs are okay. Abdomen is distended with bowel sounds present. Somewhat tympanitic over the upper abdomen. Very mild diffuse tenderness. Incisions look good. Assessment/plan: 1: Partial small bowel obstruction versus ileus. He has had significant increase in crampy abdominal pain intermittently since starting clear liquids and I have made him n.p.o. again today. He has not eaten a complete meal since Saturday of last week so I have requested a PICC line for TPN. I have ordered repeat abdominal imaging for tomorrow morning. Going to hold off on an NG tube for now since he does not have any nausea. 2.: C. difficile colitis. He is on oral vancomycin which is appropriate but since his bowel function is impaired I am going to add IV Flagyl in addition. Surgery Progress Note: Obj - Vital signs Vital signs: Vital Signs - Most Recent Temp Pulse Resp BP Pulse Ox 97.8 F 69 18 154/84 H 96 02/26/20 10:34 02/26/20 10:34 02/26/20 10:34 02/26/20 10:34 02/26/20 10:34 Surgery Progress Note: Results - Labs Result Diagrams: 02/26/20 04:45 02/26/20 04:45 Lab results: Laboratory Results - last 24 hr 02/26/20 02/26/20 04:45 04:45 WBC 10.1 RBC 3.39 L Hgb 11.3 L Hct 33.9 L MCV 100.0 H MCH 33.2 H MCHC 33.2 RDW 11.3 L Plt Count 277 MPV 6.9 L Neutrophils % 72.3 Lymphocytes % 16.7 L Monocytes % 10.0 Eosinophils % 0.8 Basophils % 0.2 Neutrophils # 7.3 H Lymphocytes # 1.7 Monocytes # 1.0 H Eosinophils # 0.1 Basophils # 0.0 Sodium 139 Potassium 3.3 L Chloride 107 Carbon Dioxide 25 Anion Gap 10 BUN 19 Creatinine 1.08 Estimated GFR (MDRD) 68 Glucose 109 Calcium 7.9
[2020-02-26] MEDS: metroNIDAZOLE 500 MG in Premix Bag 1 BAG IVPB SCH ×3 (18:31→23:33)
[2020-02-26] MEDS: Amino Acids 4.25 %/Dextrose 5% 1,000 ML IV SCH (20:52)
[2020-02-27 04:21] LABS: #Eosinphils 0.3 thou/uL (0.0-0.7); #Lymphocytes 2.2 thou/uL (1.20-3.40); #Monocytes 1.1 thou/uL (0.11-0.59); #Neutrophils 8.9 thou/uL (1.40-6.50); %Basophils 0.3 % (0.0-1.0); %Eosinophils 2.1 % (0.0-10.0); %Lymphocytes 17.5 % (21.0-51.0); %Monocytes 8.6 % (0.0-10.0); %Neutrophils 71.5 % (42.0-75.0); Hemoglobin 11.7 g/dL (14.0-18.0); Mean Corpuscular HGB CONC 33.5 g/dL (32.0-36.0); Mean Corpuscular Hemoglobin 33.4 pg (27.0-31.0); Mean Corpuscular Volume 99.5 fL (78.0-98.0); Mean Platelet Volume 6.8 fL (7.4-10.4); Platelet Count 289 thou/uL (130-400); RBC Distribution Width 11.3 % (11.5-14.5); White Blood Cell (WBC) Count 12.4 thou/uL (4.8-10.8)
[2020-02-27 04:25] LABS: Anion Gap 9 mmol/L (10-20); BUN (Urea Nitrogen) 15 mg/dL (8.4-25.7); Calc. Creatinine Clearance 102 mL/min (70-130); Calcium 7.8 mg/dL (7.8-10.44); Carbon Dioxide 24 mmol/L (23-31); Chloride 109 mmol/L (98-107); Estimated GFR-MDRD 90; Glucose 105 mg/dL (80-115); Potassium 3.3 mmol/L (3.5-5.1); Sodium 139 mmol/L (136-145)
[2020-02-27] MEDS: Vancomycin HCl 25 MG/ML Oral PO SCH ×3 (05:44→18:29)
[2020-02-27] MEDS: Ibuprofen 600 MG TAB PO PRN ×3 (05:44→18:33)
[2020-02-27] MEDS: metroNIDAZOLE 500 MG in Premix Bag 1 BAG IVPB SCH ×3 (05:44→18:28)
--- NOTE | 2020-02-27 08:58 | RAD ---
ABDOMEN TWO VIEWS: HISTORY: Partial small bowel obstruction versus ileus. COMPARISON: 02/25/20 FINDINGS: Supine and decubitus views of the abdomen show multiple air-filled loops of small bowel. Air is seen in the colon. No free air is seen on the decubitus film. Air-fluid levels are seen within the small b owel loops. IMPRESSION: Distended loops of small bowel may be secondary to a bowel obstruction or ileus. POS: [facility]
[2020-02-27] MEDS ORDERED: Lidocaine 2% 11 ML SYR TOP SCH (11:00)
[2020-02-27] MEDS ORDERED: Potassium Chloride 40 MEQ in Sodium Chloride 0.9% 250 ML 250 ML IVPB SCH (11:15)
[2020-02-27] MEDS ORDERED: Enoxaparin Sodium 40 MG/0.4 ML SYRINGE SC SCH (11:30)
--- NOTE | 2020-02-27 15:37 | PDOC.GSPN ---
Surgery Progress Note: Subj - Subjective Narrative: Patient continues to have diffuse abdominal discomfort although not the severe crampy pain that he was having on clear liquids. He continues to pass some gas but is also burping a lot. No nausea. One bowel movement yesterday which was liquid. His abdomen is distended and tympanitic and more tender to palpation than yesterday, although this is diffuse with no focal findings. Potassium is still low and this was replaced. Assessment/plan: Partial small bowel obstruction versus ileus. I reviewed all of his previous imaging and I favor partial small bowel obstruction over ileus. He has not tolerated advancement of diet and I did discuss proceeding to the operating room today for laparoscopic lysis of adhesions but the patient does not want to do this. I therefore recommended replacement of the NG tube to see if we can decompress the bowels and get the obstruction to resolve. He was agreeable to this and NG tube placement was ordered. We had previously discussed PICC line placement and TPN yesterday and he was agreeable to this. Unfortunately I found out later that interventional radiology was not available until Saturday. I returned and discussed central venous catheter placement with the patient but he did not want this placed so we compromised and I put him on PPN instead. I will check nutritional labs tomorrow. I feel the patient is relatively unlikely to respond to conservative management but he wants to give this 1 more try. I will likely obtain a CT with oral contrast tomorrow. Surgery Progress Note: Obj - Vital signs Vital signs: Vital Signs - Most Recent Temp Pulse Resp BP Pulse Ox 98.1 F 78 16 138/90 96 02/27/20 12:08 02/27/20 12:08 02/27/20 12:08 02/27/20 12:08 02/27/20 12:08 Surgery Progress Note: Results - Labs Result Diagrams: 02/27/20 03:50 02/27/20 03:50 Lab results: Laboratory Results - last 24 hr 02/27/20 02/27/20 03:50 03:50 WBC 12.4 H RBC 3.50 L Hgb 11.7 L Hct 34.8 L MCV 99.5 H MCH 33.4 H MCHC 33.5 RDW 11.3 L Plt Count 289 MPV 6.8 L Neutrophils % 71.5 Lymphocytes % 17.5 L Monocytes % 8.6 Eosinophils % 2.1 Basophils % 0.3 Neutrophils # 8.9 H Lymphocytes # 2.2 Monocytes # 1.1 H Eosinophils # 0.3 Basophils # 0.0 Sodium 139 Potassium 3.3 L Chloride 109 H Carbon Dioxide 24 Anion Gap 9 L BUN 15 Creatinine 0.84 Estimated GFR (MDRD) 90 Glucose 105 Calcium 7.8
--- NOTE | 2020-02-27 16:20 | RAD ---
SUPINE ABDOMEN: 02/27/20 INDICATIONS: NG tube placement. FINDINGS/IMPRESSION: NG tube passes through the EG junction and tip is in the left upper quadrant, gastric fundal region. Gas filled dilated loops of small bowel indicates small bowel obstruction. There is some scattered ga s in the colon. POS: [facility]
[2020-02-27] MEDS: Acetaminophen 500 MG TAB PO PRN (18:35)
[2020-02-27] MEDS: Amino Acids 4.25 %/Dextrose 5% 1,000 ML IV SCH (21:10)
[2020-02-27] MEDS: Pantoprazole 40 MG VIAL IVP SCH (21:25)
[2020-02-28] MEDS: metroNIDAZOLE 500 MG in Premix Bag 1 BAG IVPB SCH ×4 (00:16→18:16)
[2020-02-28] MEDS: Ibuprofen 600 MG TAB PO PRN ×3 (00:16→18:24)
[2020-02-28] MEDS: Vancomycin HCl 25 MG/ML Oral PO SCH ×4 (00:16→18:16)
[2020-02-28] MEDS: Acetaminophen 500 MG TAB PO PRN ×3 (00:31→18:24)
[2020-02-28 06:43] LABS: #Basophils 0.1 thou/uL (0.0-0.2); #Eosinphils 0.1 thou/uL (0.0-0.7); #Lymphocytes 2.3 thou/uL (1.20-3.40); #Neutrophils 14.8 thou/uL (1.40-6.50); %Basophils 0.4 % (0.0-1.0); %Eosinophils 0.5 % (0.0-10.0); %Lymphocytes 12.8 % (21.0-51.0); %Monocytes 5.3 % (0.0-10.0); %Neutrophils 81.1 % (42.0-75.0); Hemoglobin 14.6 g/dL (14.0-18.0); Mean Corpuscular HGB CONC 33.6 g/dL (32.0-36.0); Mean Corpuscular Hemoglobin 33.1 pg (27.0-31.0); Mean Corpuscular Volume 98.4 fL (78.0-98.0); Mean Platelet Volume 6.6 fL (7.4-10.4); PTT 25.2 SEC (22.9-36.1); Platelet Count 369 thou/uL (130-400); Prothrombin Time 13.4 SEC (12.0-14.7); RBC Distribution Width 11.5 % (11.5-14.5); Red Blood Cell (RBC) Count 4.41 mill/uL (4.70-6.10); White Blood Cell (WBC) Count 18.3 thou/uL (4.8-10.8)
[2020-02-28 06:58] LABS: ALT (SGPT) 31 U/L (8-55); AST (SGOT) 19 U/L (5-34); Albumin 3.3 g/dL (3.4-4.8); Alkaline Phosphatase 56 U/L (40-110); Anion Gap 11 mmol/L (10-20); BUN (Urea Nitrogen) 20 mg/dL (8.4-25.7); Bilirubin, Total 0.7 mg/dL (0.2-1.2); Calc. Creatinine Clearance 74 mL/min (70-130); Calcium 8.1 mg/dL (7.8-10.44); Carbon Dioxide 25 mmol/L (23-31); Chloride 104 mmol/L (98-107); Estimated GFR-MDRD 60; Globulin 2.7 g/dL (2.4-3.5); Glucose 102 mg/dL (80-115); Phosphorus 2.2 mg/dL (2.3-4.7); Potassium 3.4 mmol/L (3.5-5.1); Sodium 137 mmol/L (136-145)
[2020-02-28] MEDS: Enoxaparin Sodium 40 MG/0.4 ML SYRINGE SC SCH (10:04)
[2020-02-28] MEDS: Pantoprazole 40 MG VIAL IVP SCH ×2 (10:04→20:22)
[2020-02-28] MEDS: Potassium Chloride 20 MEQ in Premix Bag 1 BAG IVPB SCH ×2 (10:04→13:55)
[2020-02-28] MEDS ORDERED: Sodium Chloride 0.9% 500 ML IV SCH (10:15)
[2020-02-28] MEDS ORDERED: GASTROGRAFIN 30 ML BOT ONE (11:40)
[2020-02-28] MEDS ORDERED: Iopamidol-370 76% 500 ML 1 ML ONE (11:40)
--- NOTE | 2020-02-28 14:24 | CT ---
CT ABDOMEN AND PELVIS: Date: 02/28/2020 COMPARISON: 02/22/2020. HISTORY: Ileus/obstruction. TECHNIQUE: Axial CT imaging at 5 mm intervals from lung bases through pubic symphysis with intravenous and oral contrast. Coronal reformatted imaging obtained. FINDINGS: Small bilateral pleural effusions are noted with mild adjacent volume loss. There is a nasogastric tu be extending into the gastric body. Scattered foci of gas noted within the subcutaneous fat at the axial level of the hips and proximal f emora, as well as along the lateral aspect of the left abdominal wall, less conspicuous than on the 0 examination. The prior exam demonstrated free intraperitoneal air, which is not apparent on this study. There is a Smith catheter within a decompressed urinary bladder. There is new small volume free fluid adjacent to the liver and spleen. There is small volume free flu id in the pelvis, new as well. Postsurgical drainage catheter present on the prior exam has been renetta seth. There is mild distention of the gallbladder. Gallbladder is not well assessed on this exam. The liver , spleen, pancreas, adrenal glands, and kidneys demonstrate no acute findings. There is extensive sigmoid diverticulosis without evidence for diverticulitis. There is extensive prominent distention of small bowel throughout the abdomen/pelvis, including multi ple dilated fluid-filled loops of small bowel throughout the abdomen/pelvis. The degree of gaseous di stention, as well as dilated fluid-filled small bowel appears to have increased when compared to the 02/22/2020 examination. Of note, there are a few distal decompressed small bowel loops within the rig ht lower quadrant, best seen on axial image 68. In the right lower quadrant, there is transition from decompressed distal small bowel to distended fluid-filled small bowel, including distal small bowel loops proximal to this containing fecal material. These findings suggest high grade small bowel obstr uction with transition point in the right lower quadrant. There is fluid within the colon. The colon is not distended. No lymphadenopathy is apparent within the abdomen/pelvis. The vascular structures o f the abdomen/pelvis appear unremarkable. No acute osseous abnormality. IMPRESSION: Interval worsening of diffuse small bowel distention. There are a few distal decompressed small bowel loops in the region of the terminal ileum suggesting high grade small bowel obstruction with transit ion point in the right lower quadrant. There is new small volume bilateral pleural effusions and ther e is new small volume free fluid within the abdomen/pelvis. POS: [facility]
--- NOTE | 2020-02-28 16:24 | PDOC.GSPN ---
Surgery Progress Note: Subj - Subjective Narrative: When I saw the patient this morning he was really not feeling any better. He continued to have crampy abdominal discomfort although he was passing gas and had a small bowel movement this morning. He was still tympanitic and uncomfortable with palpation and distended so I recommended repeating his CT with contrast. This was done and shows persistent small bowel obstruction with worsening dilation of the proximal bowel loops. He has some free fluid but the free air has resolved and I do not see any evidence of abscess formation. His white count had gone up somewhat but he has not had any fevers. His albumin is low but his prealbumin was normal. Since returning from CT his NG tube has been hooked back up to suction that he has filled the canister. He has also had a large bowel movement and feels like his abdominal discomfort is less. Assessment/plan: Persistent partial small bowel obstruction with worsening bowel distention on CT today. The patient states that he is feeling better since having a large bowel movement but I think that he is unlikely to improve enough to advance his diet and remove the NG tube. We are going to continue with NG decompression overnight and if he has not significantly improved in the morning he is agreeing to proceed with laparoscopic possible open lysis of adhesions. He is also willing to have a central line placed under anesthesia for TPN. I will place him on the schedule for tomorrow for either myself or Dr. Reyes. Surgery Progress Note: Obj - Vital signs Vital signs: Vital Signs - Most Recent Temp Pulse Resp BP Pulse Ox 98.1 F 71 16 155/85 H 98 02/28/20 15:10 02/28/20 15:10 02/28/20 15:10 02/28/20 15:10 02/28/20 15:10 Surgery Progress Note: Results - Labs Result Diagrams: 02/28/20 06:25 02/28/20 06:25 Lab results: Laboratory Results - last 24 hr 02/28/20 02/28/20 02/28/20 06:25 06:25 06:25 WBC 18.3 H RBC 4.41 L Hgb 14.6 Hct 43.4 MCV 98.4 H MCH 33.1 H MCHC 33.6 RDW 11.5 Plt Count 369 MPV 6.6 L Neutrophils % 81.1 H Lymphocytes % 12.8 L Monocytes % 5.3 Eosinophils % 0.5 Basophils % 0.4 Neutrophils # 14.8 H Lymphocytes # 2.3 Monocytes # 1.0 H Eosinophils # 0.1 Basophils # 0.1 PT INR APTT Sodium 137 Potassium 3.4 L Chloride 104 Carbon Dioxide 25 Anion Gap 11 BUN 20 Creatinine 1.20 Estimated GFR (MDRD) 60 Glucose 102 Calcium 8.1 Phosphorus 2.2 L Magnesium 2.0 Total Bilirubin 0.7 AST 19 ALT 31 Alkaline Phosphatase 56 Serum Total Protein 6.0 Albumin 3.3 L Globulin 2.7 Albumin/Globulin Ratio 1.2 Prealbumin 20.0 02/28/20 06:25 WBC RBC Hgb Hct MCV MCH MCHC RDW Plt Count MPV Neutrophils % Lymphocytes % Monocytes % Eosinophils % Basophils % Neutrophils # Lymphocytes # Monocytes # Eosinophils # Basophils # PT 13.4 INR 1.0 APTT 25.2 Sodium Potassium Chloride Carbon Dioxide Anion Gap BUN Creatinine Estimated GFR (MDRD) Glucose Calcium Phosphorus Magnesium Total Bilirubin AST ALT Alkaline Phosphatase Serum Total Protein Albumin Globulin Albumin/Globulin Ratio Prealbumin
[2020-02-28] MEDS: Amino Acids 4.25 %/Dextrose 5% 1,000 ML IV SCH (18:16)
[2020-02-29] MEDS: metroNIDAZOLE 500 MG in Premix Bag 1 BAG IVPB SCH ×4 (00:26→18:09)
[2020-02-29] MEDS: Vancomycin HCl 25 MG/ML Oral PO SCH ×4 (00:31→18:09)
[2020-02-29 06:49] LABS: #Basophils 0.1 thou/uL (0.0-0.2); #Eosinphils 0.3 thou/uL (0.0-0.7); #Lymphocytes 1.6 thou/uL (1.20-3.40); #Monocytes 1.2 thou/uL (0.11-0.59); #Neutrophils 13.5 thou/uL (1.40-6.50); %Basophils 0.4 % (0.0-1.0); %Eosinophils 1.5 % (0.0-10.0); %Lymphocytes 9.7 % (21.0-51.0); %Neutrophils 81.4 % (42.0-75.0); Hemoglobin 13.7 g/dL (14.0-18.0); Mean Corpuscular HGB CONC 33.8 g/dL (32.0-36.0); Mean Corpuscular Hemoglobin 33.4 pg (27.0-31.0); Mean Corpuscular Volume 98.9 fL (78.0-98.0); Mean Platelet Volume 6.5 fL (7.4-10.4); Platelet Count 389 thou/uL (130-400); RBC Distribution Width 11.6 % (11.5-14.5); Red Blood Cell (RBC) Count 4.11 mill/uL (4.70-6.10); White Blood Cell (WBC) Count 16.6 thou/uL (4.8-10.8)
[2020-02-29 07:13] LABS: Anion Gap 11 mmol/L (10-20); BUN (Urea Nitrogen) 18 mg/dL (8.4-25.7); Calc. Creatinine Clearance 93 mL/min (70-130); Calcium 7.8 mg/dL (7.8-10.44); Carbon Dioxide 23 mmol/L (23-31); Chloride 106 mmol/L (98-107); Estimated GFR-MDRD 80; Glucose 119 mg/dL (80-115); Potassium 3.6 mmol/L (3.5-5.1); Sodium 136 mmol/L (136-145)
[2020-02-29] MEDS: Pantoprazole 40 MG VIAL IVP SCH ×2 (08:28→21:58)
[2020-02-29] MEDS: Enoxaparin Sodium 40 MG/0.4 ML SYRINGE SC SCH (09:04)
--- NOTE | 2020-02-29 10:34 | RAD ---
Exam: Abdomen 2 views HISTORY: Small bowel obstruction versus ileus FINDINGS: Paucity of gas in the colon. Multiple distended air-filled loops of small bowel with differ ential air-fluid levels. The possibility of a small bowel obstruction is raised. No pneumoperitoneum on the upright projection. Nasogastric tube terminates in the epigastric region. IMPRESSION: 1. Radiographic findings worrisome for small bowel obstruction.
[2020-02-29] MEDS ORDERED: PROPOFOL 200 MG/20 ML VIAL ONE (11:52)
[2020-02-29] MEDS ORDERED: Succinylcholine Chloride 20 MG/ML 10 ml SYRINGE FS ONE (11:52)
[2020-02-29] MEDS ORDERED: Metoclopramide HCl 10 MG/2 ML VIAL ONE (11:52)
[2020-02-29] MEDS ORDERED: Ondansetron PF 4 MG/2 ML Vial ONE (11:52)
[2020-02-29] MEDS ORDERED: PHENYLEPHRINE-NS 100 MCG/ML 10 ML SYRINGE ONE (11:52)
[2020-02-29] MEDS ORDERED: EPHEDRINE 25 MG/5 ML SYRINGE ONE (11:52)
[2020-02-29] MEDS ORDERED: Lidocaine 1% PF 5 ML VIAL ONE (11:52)
[2020-02-29] MEDS ORDERED: Dexamethasone 20 MG/5 ML VIAL ONE (11:52)
[2020-02-29] MEDS ORDERED: Glycopyrrolate 0.2 MG/ML 5 ML SYRINGE ONE (11:52)
[2020-02-29] MEDS ORDERED: Rocuronium Bromide 10 MG/ML (10ML VIAL) ONE (11:52)
[2020-02-29] MEDS ORDERED: Fentanyl 100 MCG/2 ML VIAL ONE (14:38)
[2020-02-29] MEDS ORDERED: Lidocaine 2% Jelly 5 ML TUBE ONE (14:39)
[2020-02-29] MEDS ORDERED: Bupivacaine 0.25% HCL 30 ML VIAL ONE (14:40)
[2020-02-29] MEDS ORDERED: Lidocaine 1% w/Epinephrine 1:100K 20 ML VIAL ONE (14:40)
[2020-02-29] MEDS ORDERED: Sodium Chloride 0.9% 20 ML ONE (14:43)
[2020-02-29] MEDS ORDERED: Promethazine HCl 25 MG/ML VIAL IM PRN (16:40)
[2020-02-29] MEDS ORDERED: Promethazine HCl 25 MG/ML VIAL SLOW IVP PRN (16:40)
[2020-02-29] MEDS ORDERED: Ondansetron HCl/PF 4 MG/2 ML Vial IVP PRN (16:40)
--- NOTE | 2020-02-29 17:11 | RAD ---
Chest one view HISTORY: Central line placement. COMPARISON: 02/22/2020. FINDINGS: Cardiac silhouette is magnified by projection. Pulmonary vasculature is unremarkable. Mediastinum is midline. A new left subclavian central venous catheter tip projects over the superior vena cava. No evidence of pneumothorax. Horizontal density at the left lateral lung base is favored to represent atelectasis or overlying artifact rather than pleural fluid, as the left hemidiaphragm remains visible. No evidence of pneumothorax. Nasogastric tube remains in place. IMPRESSION : Left subclavian central venous catheter is in good radiographic position. New left lateral lung base linear atelectasis.
[2020-02-29] MEDS: Ibuprofen 600 MG TAB PO PRN (18:12)
[2020-02-29] MEDS: [UNRECOGNIZED DRUG - OTHER] IV SCH (21:58)
[2020-02-29] MEDS: SODIUM ACETATE IV SCH (21:58)
[2020-02-29] MEDS: MULTIVITAMINS IV SCH (21:58)
[2020-03-01] MEDS: metroNIDAZOLE 500 MG in Premix Bag 1 BAG IVPB SCH ×5 (00:43→23:58)
[2020-03-01] MEDS: Ibuprofen 600 MG TAB PO PRN ×4 (00:43→21:42)
[2020-03-01] MEDS: Vancomycin HCl 25 MG/ML Oral PO SCH ×5 (00:44→23:58)
--- NOTE | 2020-03-01 00:47 | OP ---
DATE OF PROCEDURE: 02/29/2020 PREOPERATIVE DIAGNOSIS: Suspected small bowel obstruction. POSTOPERATIVE DIAGNOSIS: No evidence of small bowel obstruction. No small bowel adhesions at all. A small amount of herniated fatty tissue through a defect in the left abdominal wall. Malnutrition. PROCEDURE PERFORMED: Placement of left subclavian triple-lumen 7-Jamaican central line. Diagnostic laparoscopy. ANESTHESIA: General endotracheal. INDICATIONS: The patient is a 69-year-old white male. He is status post robotic prostatectomy on February 17. He returned on postoperative day #5 with nausea and vomiting and has been hospitalized since that time. He was initially suspected to have a postoperative ileus. He was subsequently diagnosed with Clostridium difficile colitis. In spite of appropriate treatment of all underlying issues, he has had no resolution of his abdominal distention, nausea, vomiting, etc. X-ray from today still shows multiple markedly dilated loops of small bowel. CT scan from yesterday showed what was felt to be a distal small bowel obstruction. He was taken to the operating at this time for laparoscopic evaluation. DESCRIPTION OF OPERATION: Informed consent was obtained. The patient was taken to the operating room, where general endotracheal anesthesia was obtained. Patient in supine position. Abdomen was prepped with ChloraPrep and draped in sterile fashion. Local anesthetic was infiltrated and a 5 mm left upper abdominal incision was created through which a Veress needle was passed the peritoneal cavity. Pneumoperitoneum established. He has carbon dioxide inside up to pressure of 15 mmHg. A 5 mm trocar port was passed through the same incision. Laparoscopic camera was passed this port. Under direct vision, I placed a 5 mm port at a prior robotic port site in his right mid abdomen. There was some fatty tissue herniated through the left lateral robotic port site. This was bluntly reduced. I then placed a 5 mm port through the left lateral robotic port site. I then performed a thorough laparoscopic evaluation. There were diffuse dilated loops of small bowel. I turned my attention initially to the cecum. This was also quite distended as was the entire right colon. The appendix was identified and entirely within normal limits. I identified the terminal ileum and ran the small bowel retrograde up to the level of the ligament of Treitz. There was no adhesion to the small bowel in any location. There was certainly no transition zone and there was no segment of the small bowel that appeared to be decompressed. There was a small amount of serosanguineous fluid both up around the liver and down within the pelvis and this was aspirated. There was no evidence of acute inflammatory change. I inspected the transverse colon. The omentum was easily reflected superiorly. It was difficult to discern if there was significant dilatation of the transverse colon or the left colon. There was severe diverticular change of the sigmoid colon. Within the pelvis, I was able to visualize down to the level of the rectum. There was what appeared to be a defect anterior to the bladder on the left side, almost the area of an inguinal hernia. I am not certain if this was postoperative from his robotic prostate surgery or not. There was certainly nothing incarcerated within this. Photo documentation was obtained. The pelvis was entirely clear of adhesions and documentation was obtained of this as well. All ports and instruments were removed under direct vision. Pneumoperitoneum was carefully evacuated. A 0.25% Marcaine with epinephrine was infiltrated at each port site. The fascial defect at the left lateral robotic port was closed with 0 Vicryl suture using a GraNee needle. All ports and instruments were removed under direct vision. Pneumoperitoneum was carefully evacuated. A 0.25% Marcaine with epinephrine was infiltrated at each port site. Skin edges approximated with 4-0 Monocryl subcuticular suture. Dermabond was placed externally. A 7-Jamaican triple-lumen central line was placed in the left subclavian vein uneventfully on the initial pass using the typical modified Seldinger technique. All three ports aspirated. Blood freely were flushed with heparinized saline. Sterile dressing was applied. It is uncertain what is causing the patient's apparent obstructive phenomenon. I guess it is possible that he could still have some degree of an ileus. Since there is no evidence of any small bowel abnormality, I will obtain a Gastrografin enema tomorrow to evaluate for any intraluminal colonic abnormality. Job ID: [id number]
[2020-03-01] MEDS: Acetaminophen 500 MG TAB PO PRN (04:18)
[2020-03-01 04:44] LABS: #Eosinphils 0.1 thou/uL (0.0-0.7); #Lymphocytes 0.8 thou/uL (1.20-3.40); #Monocytes 0.8 thou/uL (0.11-0.59); #Neutrophils 13.5 thou/uL (1.40-6.50); %Basophils 0.2 % (0.0-1.0); %Eosinophils 0.4 % (0.0-10.0); %Lymphocytes 4.9 % (21.0-51.0); %Monocytes 5.1 % (0.0-10.0); %Neutrophils 89.4 % (42.0-75.0); Hemoglobin 12.3 g/dL (14.0-18.0); Mean Corpuscular HGB CONC 34.1 g/dL (32.0-36.0); Mean Corpuscular Hemoglobin 33.8 pg (27.0-31.0); Mean Platelet Volume 6.6 fL (7.4-10.4); Platelet Count 402 thou/uL (130-400); RBC Distribution Width 11.6 % (11.5-14.5); Red Blood Cell (RBC) Count 3.64 mill/uL (4.70-6.10); White Blood Cell (WBC) Count 15.1 thou/uL (4.8-10.8)
[2020-03-01 04:46] LABS: INR-International Normal Ratio 1.2; PTT 26.8 SEC (22.9-36.1); Prothrombin Time 15.1 SEC (12.0-14.7)
[2020-03-01 05:07] LABS: Phosphorus 2.6 mg/dL (2.3-4.7)
[2020-03-01 05:08] LABS: ALT (SGPT) 19 U/L (8-55); AST (SGOT) 15 U/L (5-34); Albumin 2.5 g/dL (3.4-4.8); Alkaline Phosphatase 41 U/L (40-110); Anion Gap 9 mmol/L (10-20); BUN (Urea Nitrogen) 21 mg/dL (8.4-25.7); Bilirubin, Total 0.2 mg/dL (0.2-1.2); Calc. Creatinine Clearance 76 mL/min (70-130); Calcium 7.6 mg/dL (7.8-10.44); Carbon Dioxide 24 mmol/L (23-31); Cardiac Risk 2.3 (Less than 4.5); Chloride 106 mmol/L (98-107); Cholesterol 75 mg/dl (< 200 Desired); Estimated GFR-MDRD 64; Globulin 2.2 g/dL (2.4-3.5); Glucose 222 mg/dL (80-115); HDL Cholesterol 32 mg/dL (>60 Neg Risk); LDL Cholesterol, Calculated 23 mg/dL; Potassium 3.9 mmol/L (3.5-5.1); Protein, Total 4.7 g/dL (5.8-8.1); Sodium 135 mmol/L (136-145); Triglycerides 98 mg/dL (Less than 150)
[2020-03-01] MEDS: Cepastat Lozenges 1 LOZ PO PRN (06:32)
[2020-03-01] MEDS: Enoxaparin Sodium 40 MG/0.4 ML SYRINGE SC SCH (10:24)
[2020-03-01] MEDS: Pantoprazole 40 MG VIAL IVP SCH ×2 (10:24→21:42)
--- NOTE | 2020-03-01 11:34 | RAD ---
GASTROGRAFIN ENEMA: HISTORY: Evaluate for colon obstruction. FINDINGS: Initial supine and upright slip maker radiographs demonstrate multiple distended air-filled loops of small bowel. Nasogastric tube is in the stomach. Decompressed colon is identified. Patient was administered Gastrografin which opacifies the entire colon to the level the cecum. There does not appear to be reflux of contrast into the terminal ileum. Extensive diverticulosis. No evidence of obstruction. Postevacuation films demonstrate residual Gastrografin in the nondistended, nondilated colon. IMPRESSION: No evidence of obstruction, with regards to the colon. Transcribed Date/Time: 03/01/2020 1:24 PM
--- NOTE | 2020-03-01 11:38 | PRG ---
DATE OF SERVICE: 03/01/2020 SUBJECTIVE: Mr. Murphy is hospital day #8 from his readmission for nausea and vomiting. He has had a somewhat confusing course. He was initially felt to likely have an adynamic ileus. He subsequently was found to have Clostridium difficile colitis for which he has been treated. In spite of this, although his condition seemed to be improving, he had recurrent distention with nausea and vomiting. Yesterday, I took him to the operating room and performed laparoscopy, at which time, I was able to confirm that there were no intraabdominal adhesions at all and the entire small bowel was free of any adhesions or obstruction. In fact, the cecum was dilated. Therefore, today I obtained a Gastrografin enema. I have seen the images, but this has not yet been read by Radiology. It appears that there was substantial diverticular change within the sigmoid colon, but not to the point that it would be obstructive. There appears to be no concerning obstructive lesion within the colon. This, therefore, means that there is no apparent obstruction causing any of his extensive small bowel dilatation, which is still very apparent on imaging from today. Yesterday, a central line was placed and he began receiving TPN last night. OBJECTIVE: VITAL SIGNS: On examination today, he is afebrile with temperature 98.1; his pulse this morning was 102, which is higher than typical for him; and his blood pressure is 114/77. LUNGS: Clear to auscultation. ABDOMEN: Moderately distended with hypoactive bowel sounds present. All laparoscopic incisions are healing nicely. EXTREMITIES: Unremarkable. LABORATORY DATA: His CBC shows persistently elevated white blood cell count of 15.1 with a hemoglobin of 12.3, hematocrit of 36.0, and platelet count is 402. His chemistry profile revealed essentially normal electrolytes. His glucose is a little elevated to 222 this morning. His prealbumin is normal at 16, but his albumin level is depressed at 2.5. ASSESSMENT: The patient who appears to have a persistent ileus, given that there is no obstructive phenomenon in the small bowel or colon. Nasogastric tube will be continued for now. All narcotics have been discontinued. He will continue Clostridium difficile treatment. Consider Gastroenterology consultation for additional thoughts in regard to his ileus and Clostridium difficile. Job ID: [id number]
[2020-03-01] MEDS ORDERED: MD-Gastroview 120 ML BOT ONE (11:47)
[2020-03-01] MEDS: MULTIVITAMINS IV SCH (21:43)
[2020-03-01] MEDS: [UNRECOGNIZED DRUG - OTHER] IV SCH (21:43)
[2020-03-01] MEDS: SODIUM ACETATE IV SCH (21:43)
[2020-03-02] MEDS: Vancomycin HCl 25 MG/ML Oral PO SCH ×4 (05:23→23:51)
[2020-03-02] MEDS: Ibuprofen 600 MG TAB PO PRN ×3 (05:23→18:49)
[2020-03-02] MEDS: metroNIDAZOLE 500 MG in Premix Bag 1 BAG IVPB SCH ×4 (05:23→23:51)
[2020-03-02 05:43] LABS: #Eosinphils 0.2 thou/uL (0.0-0.7); #Lymphocytes 1.8 thou/uL (1.20-3.40); #Monocytes 1.3 thou/uL (0.11-0.59); #Neutrophils 10.9 thou/uL (1.40-6.50); %Basophils 0.1 % (0.0-1.0); %Eosinophils 1.2 % (0.0-10.0); %Lymphocytes 12.7 % (21.0-51.0); %Monocytes 9.1 % (0.0-10.0); %Neutrophils 76.9 % (42.0-75.0); Hemoglobin 12.1 g/dL (14.0-18.0); Mean Corpuscular Hemoglobin 32.7 pg (27.0-31.0); Mean Corpuscular Volume 99.3 fL (78.0-98.0); Mean Platelet Volume 6.6 fL (7.4-10.4); Platelet Count 438 thou/uL (130-400); RBC Distribution Width 11.7 % (11.5-14.5); Red Blood Cell (RBC) Count 3.69 mill/uL (4.70-6.10); White Blood Cell (WBC) Count 14.2 thou/uL (4.8-10.8)
[2020-03-02 06:18] LABS: Anion Gap 10 mmol/L (10-20); BUN (Urea Nitrogen) 23 mg/dL (8.4-25.7); Calc. Creatinine Clearance 89 mL/min (70-130); Calcium 7.6 mg/dL (7.8-10.44); Carbon Dioxide 25 mmol/L (23-31); Chloride 106 mmol/L (98-107); Estimated GFR-MDRD 74; Glucose 87 mg/dL (80-115); Potassium 3.5 mmol/L (3.5-5.1); Sodium 137 mmol/L (136-145)
[2020-03-02] MEDS: Enoxaparin Sodium 40 MG/0.4 ML SYRINGE SC SCH (10:16)
[2020-03-02] MEDS: Pantoprazole 40 MG VIAL IVP SCH ×2 (10:16→21:03)
--- NOTE | 2020-03-02 11:34 | PQF ---
CLINICAL DOCUMENTATION IMPROVEMENT CLARIFICATION FORM: ICD-10 Updated PLEASE DO AN ADDENDUM TO THE PROGRESS NOTE WITH ANY DOCUMENTATION UPDATES OR ADDITIONS AND CARRY THROUGH TO DC SUMMARY. THANK YOU. Date: 03/02/2020 ATTN: Dr. Yung Please exercise your independent, professional judgment in responding to the clarification form. Clinical indicators are provided on the bottom of this form for your review Please check appropriate box(s): [ x ] Protein Calorie Malnutrition: [ x ] Mild [ ] Moderate [ ] Severe [ ] Other Malnutrition (please specify) [ ] Other diagnosis [ ] Unable to determine In addition, please specify: Present on Admission (POA): [ ] Yes [ ] No [ x ] Unable to determine CLINICAL INDICATORS - SIGNS / SYMPTOMS / LABS / RESULTS AND LOCATION IN MR Operative Note 02/28: Malnutrition Line Inspector Assessment 02/23: BMI 26.4 KCAL and G Protein requirements not met/ NPO 3.1% weight loss over the past 4 days, < 50% energy intake compared to estimated energy needs for > 5 days, suggestive of severe malnutrition in the context of acute illness. Line Inspector Assessment 03/01: "TPN not meeting the pt's estimated nutritional needs." RISKS: H&P 02/21: Postoperative ileus. Prostate cancer, s/p prostatectomy, POD 5. 03/01 (Eric) appears to have a persistent ileus. Clostridium difficile. TREATMENT: General Surgery consult 02/21 Line Inspector Consult 02/23 - triggered for a food pump Line Inspector Consult 02/25: TPN recommendations Moderate Malnutrition (in acute illness) Energy Intake: <75% of estimated energy requirement for > 7 days Weight Loss: 1-2%/1 week; 5%/ 1 month; 7.5%/3 months Other: mild body fat loss; mild muscle mass loss; mild fluid accumulation; Severe Malnutrition (in acute illness) Energy Intake: < 50% of estimated energy requirement for > 5 days Weight Loss: >1-2%/1 week; >5%/1 month; >7.5%/3 months Other: moderate body fat loss; moderate muscle mass loss; moderate- severe fluid accumulation; measurably reduced pressure vessel inspector strength Moderate Malnutrition (in chronic illness) Energy Intake: <75% of estimated energy requirement for >1 month Weight Loss: 5%/1 month; 7.5%/3 months; 10%/6 months; 20%/1 year Other: mild body fat loss; mild muscle mass loss; mild fluid accumulation Severe Malnutrition (in chronic illness) Energy Intake: <75% of estimated energy requirement for >1 month Weight Loss: >5%/1 month; >7.5%/3 months; >10%/6 months; >20%/1 year Other: severe body fat loss; severe muscle mass loss; severe fluid accumulation; measurably reduced pressure vessel inspector strength Thank you, Prema (This form is maintained as a part of the permanent medical record) 2015 [employer] All Rights Reserved Prema Cooney RN, BSN [email or web address] [employer] [facility]
--- NOTE | 2020-03-02 15:24 | PRG ---
DATE OF SERVICE: 03/02/2020 SUBJECTIVE: Mr. Murphy is hospital day #9 from his readmission for nausea and vomiting. He has been diagnosed with Clostridium difficile colitis, for which he has been treated for several days now. I performed a laparoscopic evaluation 2 days ago, which revealed no evidence of mechanical small bowel obstruction or adhesions. He had a Gastrografin enema yesterday, which was unremarkable except for the presence of diverticular disease. There was certainly no evidence of obstruction. He remains on TPN. He is taking no narcotics and is ambulating regularly. He tells me he has begun passing flatus. It is difficult to tell the number or extent of his bowel movements or whether he is having diarrhea. OBJECTIVE: VITAL SIGNS: He is afebrile. Pulse is 84, blood pressure 142/71. His urine output per Smith catheter was 1900 mL yesterday. His NG tube has shown as putting out 0 mL. LUNGS: Clear to auscultation. ABDOMEN: Still seems to be mildly distended. Incisions are all nicely healed. He is somewhat touchy to examination, but does not think that he has any significant tenderness. Bowel sounds are hypoactive. LABORATORY DATA: CBC shows white blood cell count of 14.2. This has been going down for the last 3 days. Hemoglobin stable at 12.1. Basic metabolic panel is entirely normal. Sugars are well controlled while on TPN. ASSESSMENT: The patient with apparent persistent ileus in light of the lack of any obstruction involving the small bowel or his colon. For now, he will continue on TPN. He is still receiving intravenous metronidazole and oral vancomycin. I will check an abdominal x-ray tomorrow, and I am hopeful we will be able to remove his nasogastric tube. Job ID: [id number]
[2020-03-02] MEDS: Cepastat Lozenges 1 LOZ PO PRN ×4 (15:43→23:00)
[2020-03-02] MEDS: [UNRECOGNIZED DRUG - OTHER] IV SCH (22:48)
[2020-03-02] MEDS: SODIUM CHLORIDE IV SCH (22:48)
[2020-03-02] MEDS: SODIUM ACETATE IV SCH (22:48)
[2020-03-02] MEDS: POTASSIUM CHLORIDE IV SCH (22:48)
[2020-03-03] MEDS: Ibuprofen 600 MG TAB PO PRN ×3 (05:06→18:13)
[2020-03-03] MEDS: metroNIDAZOLE 500 MG in Premix Bag 1 BAG IVPB SCH ×3 (05:12→18:13)
[2020-03-03] MEDS: Vancomycin HCl 25 MG/ML Oral PO SCH ×3 (05:12→18:13)
[2020-03-03] MEDS: Cepastat Lozenges 1 LOZ PO PRN (05:19)
[2020-03-03 06:39] LABS: #Eosinphils 0.3 thou/uL (0.0-0.7); #Lymphocytes 1.2 thou/uL (1.20-3.40); #Monocytes 1.1 thou/uL (0.11-0.59); #Neutrophils 10.3 thou/uL (1.40-6.50); %Basophils 0.3 % (0.0-1.0); %Eosinophils 2.1 % (0.0-10.0); %Lymphocytes 9.3 % (21.0-51.0); %Monocytes 8.4 % (0.0-10.0); %Neutrophils 79.8 % (42.0-75.0); Hemoglobin 11.9 g/dL (14.0-18.0); Mean Corpuscular HGB CONC 32.8 g/dL (32.0-36.0); Mean Corpuscular Hemoglobin 33.2 pg (27.0-31.0); Mean Platelet Volume 6.7 fL (7.4-10.4); Platelet Count 410 thou/uL (130-400); Red Blood Cell (RBC) Count 3.58 mill/uL (4.70-6.10); White Blood Cell (WBC) Count 12.9 thou/uL (4.8-10.8)
[2020-03-03 06:55] LABS: Anion Gap 9 mmol/L (10-20); BUN (Urea Nitrogen) 17 mg/dL (8.4-25.7); Calc. Creatinine Clearance 116 mL/min (70-130); Calcium 7.5 mg/dL (7.8-10.44); Carbon Dioxide 26 mmol/L (23-31); Chloride 107 mmol/L (98-107); Estimated GFR-MDRD Greater than 90; Glucose 88 mg/dL (80-115); Potassium 3.8 mmol/L (3.5-5.1); Sodium 138 mmol/L (136-145)
--- NOTE | 2020-03-03 10:05 | PRG ---
DATE OF SERVICE: 03/02/2020 SUBJECTIVE: The patient states he is feeling okay. He is still having discomfort and pain in his lower abdomen, most likely secondary to his more recent surgery and C diff colitis. He states that his diarrhea has significantly slowed down. He otherwise has no other significant complaints other than he states he is noticing swelling in his legs. OBJECTIVE: VITAL SIGNS: Temperature 97.9, pulse 86, respirations 16, blood pressure 142/71, saturation 98% on room air. GENERAL: No apparent distress, communicative, alert. CARDIOVASCULAR: Regular rate and rhythm. HEENT: NG-tube in place, currently capped. ABDOMEN: Soft, nontender, and nondistended. Positive bowel sounds. Incision is clean, dry, and intact, healing well. : Smith catheter in place, secured with clear yellow urine. EXTREMITIES: 2+ edema on the right. 1+ edema on the left. Homans sign is negative. LABORATORY EVALUATION: The full set of labs are in the [facility] system, which I have reviewed. Of note, the patient's white count is 14.2, hemoglobin 12.1. Creatinine 0.78. ASSESSMENT AND PLAN: A 69-year-old white male, status post robotic prostatectomy with postoperative ileus secondary to Clostridium difficile colitis and subsequent exploratory laparoscopy secondary to a possible small-bowel obstruction, which was found to be non-existent and patient just having ileus. He seems to be recovering from his ileus quite well. He is on antibiotics for his Clostridium difficile colitis, which seems to be improving. The plan is to have his NG tube removed tomorrow. I am a little concerned about his asymmetric lower extremity edema. Given that he did have a high risk procedure and that he had pelvic cancer and pelvic surgery as well as recent prolonged bed rest, I would like to get lower extremity Dopplers. The patient has been on Lovenox and has been ambulating. Therefore, his overall risk remains low, but I would still like to rule out given that the patient does have multiple risk factors. I will go and order lower extremity Dopplers and ensure that he does not have deep venous thrombosis. Otherwise, as far as his Smith catheter goes, the patient was supposed to have his Smith catheter removed on Saturday today. However, given that the patient has had a poor p.o. intake and an ileus, he has not had adequate nutrition. He is getting TPN now, but there is a good possibility that his anastomosis has had delayed healing. As such, I would like to keep the catheter in longer. I will recommend the catheter stay in until he is closer to discharge at which point, I think we can remove his catheter for a void trial. I will continue to follow along and make recommendations. Job ID: [id number]
--- NOTE | 2020-03-03 10:11 | RAD ---
ABDOMINAL SURVEY WITH UPRIGHT CHEST AND 2 VIEW ABDOMEN: Date: 03/03/2020 INDICATION: Ileus. FINDINGS: Lung mckenzie appear clear on the upright chest. A central line is unchanged when compared to 0. The supine and upright views of abdomen show gas-filled dilated loops of small bowel. Scattered stool and gas is seen in the colon. No free air or mass effect. IMPRESSION: Dilated gas-filled loops of small bowel. Diffuse ileus versus partial small bowel obstruction. There is scattered gas in the colon without significant colon distention. POS: [facility]
[2020-03-03] MEDS: Enoxaparin Sodium 40 MG/0.4 ML SYRINGE SC SCH (10:46)
[2020-03-03] MEDS: Pantoprazole 40 MG VIAL IVP SCH (10:46)
--- NOTE | 2020-03-03 12:19 | ULT ---
BILATERAL LOWER EXTREMITY VENOUS DUPLEX ULTRASOUND INCLUDING COLOR AND SPECTRAL DOPPLER IMAGING: Date: 03/03/2020 HISTORY: Bilateral lower extremity edema, worse on right side. TECHNIQUE: Examination performed from groin to ankle including visualized greater saphenous, common femoral, sup erficial femoral, profunda femoral, popliteal, trifurcation, and posterior tibial vein regions. FINDINGS: There is evidence for obstructing intraluminal thrombus involving the paired right posterior tibial v eins. On the left side, one of the posterior tibial veins is thrombosed with obstructing thrombus. Th e remainder of the deep venous system appears to be intact, including the common femoral and superfic ial femoral and popliteal veins. IMPRESSION: Evidence for deep venous thrombosis involving the right paired posterior tibial veins and one of the left posterior tibial veins. Findings discussed with nurse, Alix, at 1030 hours, who indicated that she would contact Dr. Bautista in this regard. CODE CR.
--- NOTE | 2020-03-03 14:13 | PRG ---
DATE OF SERVICE: 03/03/2020 SUBJECTIVE: Mr. Murphy remains in the hospital on the surgical floor. He is hospital day #10 for readmission for nausea and vomiting. He appears to have had a postoperative ileus, possibly related to Clostridium difficile. He has undergone a laparoscopic small-bowel evaluation and a Gastrografin enema, both of which were negative. He has been treated for his Clostridium difficile for about a week now. He had a nasogastric tube up until this morning. He had very little out yesterday and today, and I therefore, I removed his nasogastric tube. He is having bowel movements and passing flatus. He is ambulating some. Dr. 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 He has been placed on therapeutic anticoagulation for this. He continues on TPN, which he has tolerated unremarkably. OBJECTIVE: VITAL SIGNS: He is afebrile, pulse 77, blood pressure 128/77. ABDOMEN: Soft with hypoactive bowel sounds and well-healed incisions. EXTREMITIES: Edematous, but essentially symmetrical. LABORATORY DATA: His white blood cell count continues to drop and is now down to 12.9 with a hemoglobin of 11.9, platelet count 410. Chemistries reveal essentially normal metabolic panel. ASSESSMENT: Stable. Nasogastric tube was removed this morning. I started him on clear liquids, which he tolerated thus far. He is encouraged to continue to ambulate. He will continue with therapeutic anticoagulation and TPN. Hopefully, we will be able to advance his diet. Job ID: [id number]
[2020-03-03] MEDS: Famotidine/PF 20 mg/2ml Vial SLOW IVP SCH (19:39)
[2020-03-03] MEDS: Enoxaparin Sodium 100 MG/ML SYRINGE SC SCH (19:39)
[2020-03-03] MEDS: SODIUM ACETATE IV SCH (22:56)
[2020-03-03] MEDS: [UNRECOGNIZED DRUG - OTHER] IV SCH (22:56)
[2020-03-03] MEDS: SODIUM CHLORIDE IV SCH (22:56)
[2020-03-03] MEDS: POTASSIUM CHLORIDE IV SCH (22:56)
[2020-03-04] MEDS: Vancomycin HCl 25 MG/ML Oral PO SCH ×5 (00:16→23:03)
[2020-03-04] MEDS: Ibuprofen 600 MG TAB PO PRN ×5 (00:16→23:41)
[2020-03-04] MEDS: metroNIDAZOLE 500 MG in Premix Bag 1 BAG IVPB SCH ×3 (00:17→12:58)
[2020-03-04 07:07] LABS: ALT (SGPT) 18 U/L (8-55); AST (SGOT) 16 U/L (5-34); Albumin 2.5 g/dL (3.4-4.8); Alkaline Phosphatase 44 U/L (40-110); Anion Gap 8 mmol/L (10-20); BUN (Urea Nitrogen) 22 mg/dL (8.4-25.7); Bilirubin, Total 0.3 mg/dL (0.2-1.2); Calc. Creatinine Clearance 66 mL/min (70-130); Calcium 7.7 mg/dL (7.8-10.44); Carbon Dioxide 25 mmol/L (23-31); Chloride 107 mmol/L (98-107); Estimated GFR-MDRD 51; Globulin 2.3 g/dL (2.4-3.5); Glucose 86 mg/dL (80-115); Potassium 4.6 mmol/L (3.5-5.1); Protein, Total 4.8 g/dL (5.8-8.1); Sodium 135 mmol/L (136-145)
[2020-03-04] MEDS: Famotidine/PF 20 mg/2ml Vial SLOW IVP SCH ×2 (09:23→21:11)
[2020-03-04] MEDS: Enoxaparin Sodium 100 MG/ML SYRINGE SC SCH (09:23)
[2020-03-04] MEDS ORDERED: Saccharomyces boulardii 250 MG CAP PO SCH (14:30)
--- NOTE | 2020-03-04 14:45 | PRG ---
DATE OF SERVICE: 03/04/2020 SUBJECTIVE: Mr. Murphy remains in the hospital on the surgical floor. He is hospital day #11 for readmission for nausea and vomiting. He appears to have had a postoperative ileus, possibly related to Clostridium difficile. He underwent a laparoscopic small bowel evaluation as well as a Gastrografin enema, both of which were negative. He has been treated for his Clostridium difficile for a week now. His nasogastric tube was removed yesterday and he was started on a clear liquid diet which he tolerated uneventfully. He tells me he continues to have bowel function and flatus. He is ambulating regularly. He still has some abdominal discomfort and some evidence of distention. He was recognized yesterday to have a DVT and was started on Lovenox. OBJECTIVE: VITAL SIGNS: On examination, he is afebrile, pulse is between 77 and 100, blood pressure 123/79. LUNGS: Clear to auscultation. ABDOMEN: Moderately distended. Bowel sounds are present, but somewhat hypoactive. All incisions are healing nicely. LABORATORY DATA: CBC was not obtained today. Metabolic panel reveals essentially normal electrolytes, although his creatinine is up to 1.37 from 0.78 yesterday. Albumin is a little low at 2.5. Magnesium and phosphorus are normal. ASSESSMENT AND PLAN: The patient is stable with slow gastrointestinal recovery following his robotic prostatectomy on February 17. I suspect his ileus is related to his Clostridium difficile, but I do not know this for certain. He appears to be making appropriate progress. He is currently on no broad-spectrum antibiotics. He had been on metronidazole until today (I just discontinued this) and I suspect this was the treatment of his Clostridium difficile. He continues to take oral vancomycin. I will add probiotics to his regimen today. He will continue to take TPN and will slowly advance his diet as he tolerates. He is on a full liquid diet as of today. Job ID: [id number]
[2020-03-04] MEDS: Apixaban 5 MG TAB PO SCH (21:11)
--- NOTE | 2020-03-04 22:17 | PRG ---
DATE OF SERVICE: 03/04/2020 SUBJECTIVE: The patient states he is doing okay. He is having swelling in his scrotum and wanted me to evaluate this. His ultrasound duplex yesterday did show DVTs in the posterior tibial veins. I started him on therapeutic Lovenox at that time with instructions for his primary care doctor to manage him on ultimately oral regimen. His NG tube was removed and he is starting to tolerate clear liquids. OBJECTIVE: VITAL SIGNS: Temperature 98.3, pulse 100, respirations 16, blood pressure 123/79, and saturation 97% on room air. GENERAL: No apparent distress. Communicative and alert. CARDIOVASCULAR: Sinus tachycardia. ABDOMEN: Soft, nontender, and nondistended. Incision is clean, dry, intact, healing well. : Smith catheter in place, draining clear yellow urine. On inspection of the meatus, there is ventral erosion of the meatus. It is relatively mild, but starting to occur. I have taken the catheter out of a StatLock, which was causing tension as the patient is sitting with his legs very far apart and have secured it to his inner thigh with tape which should take some of the tension off his penis. The scrotum does show evidence of moderate edema, but no evidence of cellulitis infections, fluctuance, or abscess. EXTREMITIES: 1+ edema bilaterally, slightly worse on the right. LABORATORY EVALUATION: There are no new labs today to review. ASSESSMENT AND PLAN: A 69-year-old white male with prostate cancer, status post robotic prostatectomy approximately 2 weeks ago with postoperative complications of Clostridium difficile colitis resulting in the postoperative ileus as well as development of posterior tibial vein deep vein thrombosis. He is being transitioned to Eliquis. We will leave him on therapeutic Lovenox until his Eliquis is in full effect. I would no longer recommend SCDs for him to avoid pulmonary embolism. I will leave the care of his bowel advancement and dietary advancements to General Surgery who is following. Remainder of his medical issues will be deferred to his primary care doctor. From my standpoint, I have repositioned his catheter, but I am planning to remove his catheter prior to discharge as previously outlined. Dr. Quinn Martins will be covering over the weekend if there are any issues that can be addressed with him and I will resume care on Saturday. Job ID: [id number]
[2020-03-04] MEDS: SODIUM CHLORIDE IV SCH (23:01)
[2020-03-04] MEDS: [UNRECOGNIZED DRUG - OTHER] IV SCH (23:01)
[2020-03-04] MEDS: POTASSIUM CHLORIDE IV SCH (23:01)
[2020-03-04] MEDS: SODIUM ACETATE IV SCH (23:01)
[2020-03-05] MEDS: Ibuprofen 600 MG TAB PO PRN ×4 (05:59→23:41)
[2020-03-05] MEDS: Vancomycin HCl 25 MG/ML Oral PO SCH ×4 (05:59→23:39)
[2020-03-05 06:18] LABS: #Eosinphils 0.3 thou/uL (0.0-0.7); #Lymphocytes 1.2 thou/uL (1.20-3.40); #Neutrophils 7.9 thou/uL (1.40-6.50); %Basophils 0.4 % (0.0-1.0); %Eosinophils 2.9 % (0.0-10.0); %Lymphocytes 11.2 % (21.0-51.0); %Monocytes 9.6 % (0.0-10.0); %Neutrophils 75.9 % (42.0-75.0); Mean Corpuscular HGB CONC 32.8 g/dL (32.0-36.0); Mean Corpuscular Hemoglobin 33.4 pg (27.0-31.0); Platelet Count 447 thou/uL (130-400); Red Blood Cell (RBC) Count 3.58 mill/uL (4.70-6.10); White Blood Cell (WBC) Count 10.4 thou/uL (4.8-10.8)
[2020-03-05 06:46] LABS: Anion Gap 9 mmol/L (10-20); BUN (Urea Nitrogen) 18 mg/dL (8.4-25.7); Calc. Creatinine Clearance 93 mL/min (70-130); Carbon Dioxide 25 mmol/L (23-31); Chloride 106 mmol/L (98-107); Estimated GFR-MDRD 77; Glucose 87 mg/dL (80-115); Potassium 4.6 mmol/L (3.5-5.1); Sodium 135 mmol/L (136-145)
[2020-03-05] MEDS: Saccharomyces boulardii 250 MG CAP PO SCH (08:23)
[2020-03-05] MEDS: Famotidine/PF 20 mg/2ml Vial SLOW IVP SCH ×2 (08:23→21:13)
[2020-03-05] MEDS: Apixaban 5 MG TAB PO SCH ×2 (08:23→21:11)
[2020-03-05] MEDS ORDERED: Saccharomyces boulardii 250 MG CAP PO SCH (09:00)
--- NOTE | 2020-03-05 09:34 | PRG ---
DATE OF SERVICE: 03/05/2020 SUBJECTIVE: Mr. Murphy is doing well. He is passing gas. His bowel movements are becoming less loose. He is afebrile. Vital signs are stable. His abdomen is soft. His wounds are healing well. He has mild bruising around the incisions, but there is no evidence of wound infection. He has active bowel sounds. White blood cell count is normal at 10, hemoglobin is 12, creatinine 0.97. ASSESSMENT: 1. Resolving ileus. 2. History of Clostridium difficile colitis. PLAN: I would recommend continue full liquids today. Continue TPN. If he has a good day today without nausea or bloating, advance to GI soft diet tomorrow and then wean TPN then. Job ID: [id number]
[2020-03-05] MEDS: [UNRECOGNIZED DRUG - OTHER] IV SCH (21:59)
[2020-03-05] MEDS: SODIUM CHLORIDE IV SCH (21:59)
[2020-03-05] MEDS: POTASSIUM CHLORIDE IV SCH (21:59)
[2020-03-05] MEDS: SODIUM ACETATE IV SCH (21:59)
[2020-03-06] MEDS: Vancomycin HCl 25 MG/ML Oral PO SCH ×3 (05:35→17:43)
[2020-03-06] MEDS: Ibuprofen 600 MG TAB PO PRN ×3 (05:37→17:43)
[2020-03-06] MEDS: Saccharomyces boulardii 250 MG CAP PO SCH (09:15)
[2020-03-06] MEDS: Apixaban 5 MG TAB PO SCH ×2 (09:15→20:53)
[2020-03-06] MEDS: Famotidine/PF 20 mg/2ml Vial SLOW IVP SCH ×2 (09:15→20:53)
--- NOTE | 2020-03-06 09:16 | PRG ---
DATE OF SERVICE: 03/06/2020 SUBJECTIVE: Mr. Murphy had some cramping and bloating yesterday after trying pudding. He ate very little for dinner last night. He continues to have bowel movements. He feels much better today. He did not actually vomit. He denies nausea. OBJECTIVE: He is afebrile and his vital signs are stable. His abdomen is soft. It is mildly distended, but he has bowel sounds. His wounds are healing well. There is no evidence of wound infection. LABORATORY DATA: No new labs today. ASSESSMENT: Postop prostatectomy with postop Clostridium difficile, as well as ileus. PLAN: His ileus is slowly resolving. We will keep him on full liquids for now. Continue TPN. I suspect he may need another day or two of full liquids before being advanced. I encouraged him to continue to be active and up and around. Job ID: [id number]
[2020-03-06] MEDS: SODIUM CHLORIDE IV SCH (22:30)
[2020-03-06] MEDS: POTASSIUM CHLORIDE IV SCH (22:30)
[2020-03-06] MEDS: [UNRECOGNIZED DRUG - OTHER] IV SCH (22:30)
[2020-03-06] MEDS: SODIUM ACETATE IV SCH (22:30)
[2020-03-07] MEDS: Ibuprofen 600 MG TAB PO PRN ×5 (00:30→23:04)
[2020-03-07] MEDS: Vancomycin HCl 25 MG/ML Oral PO SCH ×5 (00:30→23:04)
[2020-03-07] MEDS: Saccharomyces boulardii 250 MG CAP PO SCH (09:06)
[2020-03-07] MEDS: Famotidine/PF 20 mg/2ml Vial SLOW IVP SCH (09:06)
[2020-03-07] MEDS: Apixaban 5 MG TAB PO SCH ×2 (09:06→21:25)
[2020-03-07 12:06] VITALS: BMI 27.6
[2020-03-07] MEDS: Acetaminophen 500 MG TAB PO PRN ×2 (16:29→21:37)
--- NOTE | 2020-03-07 17:09 | PRG ---
DATE OF SERVICE: 03/07/2020 SUBJECTIVE: The patient states he is feeling pretty good. He is not having any significant abdominal pain, nausea, or vomiting. He is currently on a clear liquid diet, but it is supposed to be advanced to a regular diet soon. He has been receiving TPN. OBJECTIVE: VITAL SIGNS: Temperature 96.3, pulse 86, respirations 18, blood pressure 134/64, and saturation 96% on room air. GENERAL: No apparent distress. Communicative and alert. CARDIOVASCULAR: Regular rate and rhythm. ABDOMEN: Soft, nontender, and nondistended. Incision is clean, dry, and intact. : Smith catheter in place with no worsening of erosion. Urine is clear. EXTREMITIES: No clubbing, cyanosis, or edema. LABORATORY EVALUATION: The full set of labs are in the [employer] system, which I have reviewed. Of note, the patient's blood sugar is 117. Otherwise, no other new labs today. ASSESSMENT AND PLAN: A 69-year-old white male with prostate cancer status post robotic prostatectomy approximately two and half weeks ago with postop course complicated with Clostridium difficile colitis and deep venous thrombosis. He is recovering from his Clostridium difficile colitis on oral antibiotics and is improving. This is currently being managed by his primary care doctor and General Surgery. His deep venous thrombosis is being managed with p.o. Eliquis currently. From my standpoint, I do think he has had his catheter in long enough and to avoid further ventral erosion, I think we can go ahead and have his catheter removed today. I have told the nurse to remove his Smith catheter. If he is unable to void, I will need to replace the catheter myself. The patient's discharge will be pending his primary care physician and General Surgery's disposition. From my standpoint, he can be discharged whenever he is capable. I did go over some cautions with him regarding incontinence, which may be present early on in his postoperative recovery. I will plan to see him approximately four weeks after his discharge for PSA in final postop check. Job ID: [id number]
--- NOTE | 2020-03-07 18:41 | PRG ---
DATE OF SERVICE: 03/07/2020 SUBJECTIVE: Mr. Murphy remains on the surgical floor. This is hospital day #14 for readmission for nausea and vomiting. Over the weekend, he has been stable. He is on TPN and has tolerated a full liquid diet, although he occasionally has bloating and cramping. He has not had any vomiting and has been having regular bowel movements. He believes that his bowel movements may be firming up somewhat. He is ambulating. He still has a Smith catheter per Dr. Bautista. OBJECTIVE: On examination today, he is afebrile, pulse is in 80s, blood pressure is 134/64. A detailed physical examination was not performed as the patient was in the bathroom at the time that I visited him, but I spoke with him extensively and he denied any discomfort currently. LABORATORY DATA: He has not had a CBC in a couple of days. His sugars are well controlled while on TPN. ASSESSMENT AND PLAN: The patient appears to be making appropriate progress. Since he has not vomited since his nasogastric tube was removed, I believe it is time to advance his diet and we will advance him to a fiber restricted regular diet. I will also begin weaning his TPN down and decrease his rate down to 60 mL/h. Hopefully, he will be able to tolerate his diet and we can wean off his TPN with hopes of discharging him home in the next couple of days. He does continue to receive oral vancomycin and treatment of his Clostridium difficile. This was started 11 days ago. Labs will be checked in the morning. Job ID: [id number]
[2020-03-07] MEDS: Famotidine 20 MG TAB PO SCH (21:25)
[2020-03-07] MEDS ORDERED: SODIUM CHLORIDE IV SCH (22:00)
[2020-03-07] MEDS ORDERED: SODIUM ACETATE IV SCH (22:00)
[2020-03-07] MEDS ORDERED: POTASSIUM CHLORIDE IV SCH (22:00)
[2020-03-07] MEDS ORDERED: [UNRECOGNIZED DRUG - OTHER] IV SCH (22:00)
[2020-03-08 04:47] LABS: #Basophils 0.1 thou/uL (0.0-0.2); #Eosinphils 0.3 thou/uL (0.0-0.7); #Lymphocytes 1.5 thou/uL (1.20-3.40); #Neutrophils 6.2 thou/uL (1.40-6.50); %Basophils 0.7 % (0.0-1.0); %Eosinophils 3.8 % (0.0-10.0); %Lymphocytes 16.2 % (21.0-51.0); %Monocytes 11.3 % (0.0-10.0); Hemoglobin 13.3 g/dL (14.0-18.0); Mean Corpuscular HGB CONC 32.9 g/dL (32.0-36.0); Mean Corpuscular Hemoglobin 33.6 pg (27.0-31.0); Mean Platelet Volume 6.8 fL (7.4-10.4); Platelet Count 541 thou/uL (130-400); RBC Distribution Width 12.1 % (11.5-14.5); Red Blood Cell (RBC) Count 3.95 mill/uL (4.70-6.10); White Blood Cell (WBC) Count 9.2 thou/uL (4.8-10.8)
[2020-03-08 05:11] LABS: ALT (SGPT) 15 U/L (8-55); AST (SGOT) 17 U/L (5-34); Albumin 3.1 g/dL (3.4-4.8); Alkaline Phosphatase 60 U/L (40-110); Anion Gap 13 mmol/L (10-20); BUN (Urea Nitrogen) 28 mg/dL (8.4-25.7); Bilirubin, Total 0.3 mg/dL (0.2-1.2); Calc. Creatinine Clearance 47 mL/min (70-130); Calcium 8.9 mg/dL (7.8-10.44); Carbon Dioxide 24 mmol/L (23-31); Chloride 102 mmol/L (98-107); Estimated GFR-MDRD 35; Globulin 3.1 g/dL (2.4-3.5); Glucose 82 mg/dL (80-115); Magnesium 2.2 mg/dL (1.6-2.6); Phosphorus 4.7 mg/dL (2.3-4.7); Potassium 5.2 mmol/L (3.5-5.1); Protein, Total 6.2 g/dL (5.8-8.1); Sodium 134 mmol/L (136-145)
[2020-03-08] MEDS: Ibuprofen 600 MG TAB PO PRN ×2 (05:58→16:05)
[2020-03-08] MEDS ORDERED: Hyoscyamine Sulfate SL 0.125 mg Tablet PO SCH (08:15)
[2020-03-08] MEDS: Apixaban 5 MG TAB PO SCH ×2 (09:49→21:17)
[2020-03-08] MEDS: Famotidine 20 MG TAB PO SCH (09:49)
[2020-03-08] MEDS: Saccharomyces boulardii 250 MG CAP PO SCH (09:50)
[2020-03-08] MEDS: Vancomycin HCl 25 MG/ML Oral PO SCH ×5 (11:38→21:16)
[2020-03-08] MEDS ORDERED: SODIUM CHLORIDE IV SCH ×2 (15:04→22:00)
[2020-03-08] MEDS ORDERED: POTASSIUM CHLORIDE IV SCH ×2 (15:04→22:00)
[2020-03-08] MEDS ORDERED: [UNRECOGNIZED DRUG - OTHER] IV SCH (15:04)
[2020-03-08] MEDS ORDERED: SODIUM ACETATE IV SCH ×2 (15:04→22:00)
[2020-03-08] MEDS ORDERED: Cosyntropin 250 MCG VIAL SLOW IVP SCH (15:30)
[2020-03-08] MEDS: Sodium Chloride 0.9% 1,000 ML IV SCH (15:55)
--- NOTE | 2020-03-08 18:05 | PRG ---
DATE OF SERVICE: 03/08/2020 Mr. Murphy remains on the surgical floor. Today is hospital day #15 for readmission for nausea and vomiting. Yesterday, I had hoped that he was improving to the point that we could advance his diet and wean his TPN. I discontinued his supplemental IV fluid and cut his TPN rate down to 60 mL/h and advanced him up to a soft diet. Additionally, as he had completed an 11-day course of oral vancomycin, I discontinued this with hopes that his Clostridium difficile was appropriately treated and perhaps his vancomycin was causing some of his GI complaints. Unfortunately, he did not seem to tolerate this series of interventions. This morning, he is more tachycardic with a heart rate of 110. His creatinine is elevated up to 1.9 from 0.97 on March 05. His potassium is elevated at 5.2, up from 4.6. He tells me that when he eats, he will develop cramping and he will end up having diarrhea and he has had several episodes of diarrhea in the last 24 hours. On examination today, he remains afebrile. His pulse was as high as 112, but is now back down to 88. For the 2nd day in a row, I could not perform a physical examination as he was using the bathroom when I arrive to see him. His urine output dropped from 3800 mL the day before down to 625 mL. LABORATORY DATA: His white blood cell count is normal at 9.2 with essentially normal differential. His hemoglobin is slightly elevated at 13.3. His chemistries were referenced above. His albumin is a little bit up at 3.1. ASSESSMENT: The patient clearly has hypovolemia with inadequate oral replacement of his intestinal losses. Even with TPN at 60 mL/h, this is not enough to supplement the low amount of his oral intake. I remain uncertain as to why he has not made better progress in the past 2 weeks. I am not certain if this is of residual ileus from his C diff colitis. He clearly does not have a mechanical small bowel or colonic obstruction. I will consult Gastroenterology today for input regarding his course. His problems do not seem to be of a surgical nature. I would certainly defer to Gastroenterology regarding further treatment of his diarrhea and/or ileus. I have personally communicated with Dr. Tejada about this. Job ID: [id number]
[2020-03-08] MEDS: Metoclopramide HCl 10 MG/2 ML VIAL IVP SCH (21:17)
[2020-03-08] MEDS ORDERED: [UNRECOGNIZED DRUG - OTHER] IV SCH (22:00)
[2020-03-09] MEDS: Ibuprofen 600 MG TAB PO PRN (03:25)
[2020-03-09 03:45] LABS: #Eosinphils 0.1 thou/uL (0.0-0.7); #Lymphocytes 1.2 thou/uL (1.20-3.40); #Monocytes 1.5 thou/uL (0.11-0.59); #Neutrophils 9.5 thou/uL (1.40-6.50); %Basophils 0.4 % (0.0-1.0); %Eosinophils 0.6 % (0.0-10.0); %Lymphocytes 9.4 % (21.0-51.0); %Monocytes 12.3 % (0.0-10.0); %Neutrophils 77.4 % (42.0-75.0); Hemoglobin 13.3 g/dL (14.0-18.0); Mean Corpuscular HGB CONC 33.1 g/dL (32.0-36.0); Mean Corpuscular Hemoglobin 33.7 pg (27.0-31.0); Platelet Count 557 thou/uL (130-400); RBC Distribution Width 12.2 % (11.5-14.5); Red Blood Cell (RBC) Count 3.94 mill/uL (4.70-6.10); White Blood Cell (WBC) Count 12.2 thou/uL (4.8-10.8)
[2020-03-09 04:13] LABS: Anion Gap 15 mmol/L (10-20); BUN (Urea Nitrogen) 43 mg/dL (8.4-25.7); Calc. Creatinine Clearance 27 mL/min (70-130); Calcium 9.1 mg/dL (7.8-10.44); Carbon Dioxide 21 mmol/L (23-31); Chloride 102 mmol/L (98-107); Estimated GFR-MDRD 19; Glucose 132 mg/dL (80-115); Potassium 5.6 mmol/L (3.5-5.1); Sodium 132 mmol/L (136-145)
[2020-03-09] MEDS: Metoclopramide HCl 10 MG/2 ML VIAL IVP SCH ×3 (06:38→22:04)
--- NOTE | 2020-03-09 07:38 | CON ---
DATE OF CONSULTATION: REASON FOR CONSULTATION: Persistent ileus. HISTORY OF PRESENT ILLNESS: Mr. Murphy is a pleasant 69-year-old gentleman, whom I have been asked to see by Dr. Garrett Reyes with regard to persistent ileus. He initially was in this hospital for a surgery, robotic prostatectomy on 02/17, which was uneventful, and he went home. He was re-admitted on 02/21, with abdominal pain with numerous loops of dilated small bowel suggestive of an ileus. There was no overt transition zone at that point in time. He was admitted to the hospital. General Surgery saw the patient. They weaned off pain medications, and he was treated with IV fluids for presumptive ileus. During the hospital stay, he was diagnosed with Clostridium difficile on 02/23, and was treated with 11 days of vancomycin, which was discontinued, but recently restarted. Also, he had a small-bowel follow-through on 02/23, showed no evidence of high-grade obstructions. He had NG tube in and out. Also, he had been started on TPN on 02/28/2020. He had another CAT scan, which showed interval worsening small bowel distention with some distal decompression concerning for partial high-grade SBO. Then, he had undergone a laparoscopy. Small bowel was checked by Dr. Reyes and showed no signs of obstruction. Presently, he started having some bowel movements, but he will get severe cramps in his mid abdomen right before they start, and he has been started on some Levsin for this. He is not eating much as he gets nauseated when he starts eating, but is not nauseous at baseline. He denies any headache or vision changes. PAST MEDICAL HISTORY: Negative for medical problems. The patient here in the hospital has been diagnosed with DVT in the leg, and he was started on Apixaban on the . PAST SURGICAL HISTORY: Negative for prior surgeries. MEDICATIONS: Negative for medications at home. Medications presently: 1. Tylenol p.r.n. 2. Hydrocortisone cream p.r.n. 3. Apixaban. 4. Motrin p.r.n. 5. Zofran p.r.n. 6. Pepcid. 7. TPN. 8. Vancomycin 125 p.o. q.i.d. has been restarted today. SOCIAL HISTORY: Negative for significant alcohol, drugs, or tobacco. He drinks maybe a case of beer in a year at worst. FAMILY HISTORY: Negative for GI illnesses. REVIEW OF SYSTEMS: Negative for headache, myalgias, rashes, dysphagia, odynophagia, melena, hematochezia, or hematemesis. PHYSICAL EXAMINATION: VITAL SIGNS: Pulse was 90, down from 112, was 105 earlier today, usually runs in the 80s. GENERAL: The patient is sitting on the pot, in no distress. He states he is having bowel sounds. He states he is passing gas. NECK: Supple without any nodes. LUNGS: Clear. HEART: Regular rate and rhythm without murmurs. ABDOMEN: Soft and nontender with no rebound or guarding. EXTREMITIES: No clubbing, cyanosis, or edema. LABORATORY STUDIES: White count 9.2, it was 14.2 on the ; hemoglobin 13; MCV 102; platelet count 541. INR is 1.2. Sodium 134, potassium 5.2, chloride is 102, bicarb is 24. BUN 28 and creatinine 1.82, these were 18 and 0.97 on the . Magnesium, phosphorus, bilirubin, and LFTs are normal. Albumin is 3.1. Lipase was normal on admission at 7. IMAGING STUDIES: Reviewed. Case was discussed with Dr. Reyes. ASSESSMENT: 1. The patient is re-admitted after a prostatic robot surgery on 02/17 and was re-admitted with a diagnosis of an ileus. This continues. He is starting to have some bowel movements. He does not have much appetite. He has shown some signs of inflammation while here and more concerning, he has had a steady increase in his platelet count from 402 on the , to 541 on the , which would go along with an inflammatory process. His white count, however, has come down. His urine from the , showed red blood cells and white blood cells. Imaging studies have shown no signs of infection with regard to the original surgery or true bowel obstruction. He did have Clostridium difficile, which has been treated adequately, should be improved, so it is hard to say if that is what is causing his ongoing symptoms. He has had blood cultures, which have been negative on admission. 2. New diagnosis of deep venous thrombosis just a couple of days ago by imaging, that was on the . He has been restarted on blood thinner for that. RECOMMENDATIONS: 1. Agree with restarting TPN. 2. If the patient continues to have elevation in platelet count or not improve, we should re-culture him via central line. 3. We would start Reglan IV q.8 and stop the Levsin. Levsin is going to act as small bowel relaxant and worsen the ileus. 4. Elevated MCV of unclear etiology. We will go ahead and check a B12 and a folate. 5. With regard to the nausea and anorexia, we will check a fasting cortisol. 6. We will stop his Pepcid, and we will change it to Protonix. 7. We will treat for total of 14 days with the vancomycin and then discontinue unless there is some sign that he has residual infection, which at this time there does not seem to be. We will follow along with you. Job ID: [id number]
[2020-03-09] MEDS: Saccharomyces boulardii 250 MG CAP PO SCH (08:56)
[2020-03-09] MEDS: Pantoprazole 40 MG VIAL IVP SCH (08:56)
[2020-03-09] MEDS: Apixaban 5 MG TAB PO SCH ×2 (08:56→19:54)
[2020-03-09] MEDS ORDERED: Famotidine 20 MG TAB PO SCH (09:00)
[2020-03-09] MEDS: Vancomycin HCl 25 MG/ML Oral PO SCH ×4 (09:03→20:09)
[2020-03-09] MEDS ORDERED: Iopamidol 370 76% 50 ML VIAL FS ONE (11:11)
--- NOTE | 2020-03-09 11:18 | PRG ---
DATE OF SERVICE: 03/09/2020 SUBJECTIVE: Mr. Murphy has had ongoing abdominal pain through the night and this morning. His nausea persists, though he has not had any vomiting with nasogastric tube out. He has been passing gas as well as small smears of stool, but he feels his abdomen is more distended today. He has had a decline in urine output and a bump in creatinine and potassium. OBJECTIVE: VITAL SIGNS: Temperature 98.4, pulse 116, blood pressure 153/93, 97 % oxygen saturation on room air. GENERAL: A 69-year-old man, in mild distress from abdominal discomfort. HEART: Regular, tachycardia. LUNGS: Clear to auscultation bilaterally. ABDOMEN: Moderate distention. Tympanitic to percussion. Bowel sounds are present, but hypoactive throughout. There is diffuse tenderness to palpation, but no guarding or rebound tenderness. EXTREMITIES: No peripheral edema. LABORATORY STUDIES: WBC is up to 12.2, hemoglobin 13.3, platelets 557. Sodium 132; potassium up to 5.6; BUN up to 43; creatinine up to 3.30, from 1.92 yesterday. Glucose 133. B12 is 529. Folic acid is 11.1. ASSESSMENT AND PLAN: 1. Clostridium difficile colitis. The patient is now toward the end of a 2-week course of oral vancomycin. Continue for a total treatment course of 14 days. With worsening of abdominal distention today, I am going to check another KUB. 2. Ileus. 3. Acute kidney injury. The patient has had significant bump in creatinine over the past couple of days with decline in urine output yesterday. This is despite total parenteral nutrition. He does continue to make urine, no evidence of bladder outlet obstruction. I am going to go ahead and put in a consultation to Nephrology for their input. 4. Leukocytosis and thrombocytosis. Consider possibly secondary to Clostridium difficile versus some other inflammatory process. Continue with supportive care. GI will continue to follow. Job ID: [id number] [facility]
[2020-03-09] MEDS: Sodium Chloride 0.9% 1,000 ML IV SCH (11:47)
--- NOTE | 2020-03-09 12:41 | RAD ---
ABDOMEN 1 VIEW: Date: 03/09/2020 HISTORY: Ileus. Distention. COMPARISON: 03/03/2020. FINDINGS: There is fairly prominent gaseous distention of the colon developing since the prior study. There are progressively dilated loops of small bowel when compared to the prior study. No overt free intraperi toneal air or overt calculus. IMPRESSION: Progressive dilatation with a somewhat distended stomach, as well as slightly progressively dilated s mall bowel and minimally dilated cecum. Continue short-term follow-up. POS: [facility]
[2020-03-09] MEDS: Acetaminophen 500 MG TAB PO PRN ×2 (13:04→19:52)
[2020-03-09] MEDS ORDERED: Sodium Bicarbonate 75 MEQ in Sodium Chloride 0.45% 1,000 ML IV SCH (14:15)
[2020-03-09 16:39] LABS: Anion Gap 19 mmol/L (10-20); BUN (Urea Nitrogen) 53 mg/dL (8.4-25.7); Calc. Creatinine Clearance 23 mL/min (70-130); Calcium 9.2 mg/dL (7.8-10.44); Carbon Dioxide 16 mmol/L (23-31); Chloride 102 mmol/L (98-107); Estimated GFR-MDRD 15; Glucose 130 mg/dL (80-115); Sodium 130 mmol/L (136-145)
[2020-03-09 16:48] LABS: Potassium 6.6 mmol/L (3.5-5.1)
[2020-03-09] MEDS: metroNIDAZOLE 500 MG in Premix Bag 1 BAG IVPB SCH (17:23)
[2020-03-09] MEDS ORDERED: Calcium Gluconate 4.6 MEQ in Sodium Chloride 0.9% 100 ML IVPB SCH (17:37)
[2020-03-09] MEDS ORDERED: Dextrose 50% Abboject 50 ML SYRINGE SLOW IVP PRN (17:37)
[2020-03-09] MEDS ORDERED: Insulin Regular 300 UNITS/3 ML VIAL IVP SCH (17:45)
--- NOTE | 2020-03-09 18:18 | CT ---
CT ABDOMEN AND PELVIS WITHOUT CONTRAST: 03/09/20 COMPARISON: 02/28/20. HISTORY: Small bowel obstruction versus ileus. TECHNIQUE: Multiple contiguous axial images were obtained in a CT of the abdomen and pelvis without contrast. PO contrast was administered. Sagittal and coronal reformats were performed. FINDINGS: There has been interval development of a small amount of ascites. No free air is seen in the abdomen or pelvis. A small fluid collection is seen in the prostate bed and he prostate has been removed. The liver, gallbladder, kidneys, adrenal glands, spleen, and pancreas are unremarkable, although eval uation is limited without IV contrast. Scattered diverticula are seen in the colon. The small bowel is normal in caliber on this examination . The contrast passes to the right colon. No leakage of the enteric contrast is appreciated. No abdominal or pelvic lymphadenopathy are seen. There are trace bilateral pleural effusions with adj acent atelectasis. Degenerative changes are seen in the spine. The abdominal wall soft tissue are unr emarkable. The previously seen air in the inguinal regions has resolved. IMPRESSION: 1. Interval development of small ascites. 2. No evidence of bowel obstruction or significant bowel distention. 3. Diverticulosis. POS: [facility]
--- NOTE | 2020-03-09 18:21 | PRG ---
DATE OF SERVICE: 03/09/2020 SUBJECTIVE: Mr. Murphy remains on the surgical floor. He is hospital day #16 for readmission for nausea and vomiting. He is postoperative day #9 from diagnostic laparoscopy, which confirmed that he had no evidence of small-bowel obstruction. He complains of intermittent cramping in his abdomen, which is frequently relieved by having a bowel movement. He believes he had three bowel movements yesterday and believes that they are becoming more formed. In spite of this, his laboratory studies have taken a dramatic negative turn. His creatinine yesterday was 1.9 and this morning is 3.3. I repeated this afternoon, and in spite of IV fluids, his creatinine is deteriorated further, it is 3.99 currently. His potassium this morning had risen from 5.2 yesterday to 5.6 today and is up to 6.6 this afternoon. Nephrology was consulted earlier. Dr. Madison saw him in consultation and is aware of the progression of his kidney dysfunction and his hyperkalemia. The patient is additionally acidotic with a CO2 that has dropped from 21 this morning down to 16 this afternoon. In spite of these significant laboratory abnormalities, he does not look toxic and communicates easily. It is noted that he has become persistently tachycardic. His pulse early this morning was 100 and it has now been around 119 for the last few hours. The patient tells me he has been voiding uneventfully and believes that it is coming out freely and that he has a good volume. Unfortunately, the exact levels were not being checked. PHYSICAL EXAMINATION: VITAL SIGNS: Temperature 97.8, pulse 119, and blood pressure 136/92. LUNGS: Clear to auscultation. ABDOMEN: This afternoon his abdomen is quiet. His incisions are nicely healed. He really does not have focal tenderness, but he has some mild diffuse discomfort that is not worse in any particular quadrant. EXTREMITIES: Have JELANI hose in place that are knee high with no obvious edema above these. LABORATORY DATA: Labs are as referenced above. In addition, his white blood cell count went up from 9.2 yesterday to 12.2 today. Hemoglobin stable at 13.3. ASSESSMENT: The patient has progressive kidney dysfunction heading towards renal failure. He has progressive acidosis and as of this afternoon has severe hyperkalemia, for which Nephrology has been consulted and is managing. I am uncertain as to the underlying cause of this. It would seem unusual that he would have a severe Clostridium related colitis following appropriate treatment with oral vancomycin. I am not certain if he has some segment of ischemic bowel or if this is all related in some fashion to hypovolemia with inadequate fluid intake along with his diarrhea. I have communicated with Dr. Madison and Dr. Cade in regard to this. A CT scan will be obtained urgently this afternoon to make sure there is nothing obvious that is causing the problem. If this is in fact a clostridial colitis, may consider a diverting ileostomy in hopes of avoiding a total colectomy. There is always a possibility this could be an ischemic segment of bowel, which would have to be evaluated and treated, but again this would seem to be unusual in this current setting. He has been on anticoagulants for the past week following his deep venous thrombosis diagnosis. He is not currently on any antibiotics other than his oral vancomycin. I will add back intravenous metronidazole empirically for now. Finally, in light of his progressive deterioration in his tachycardia, I will transfer him to the intensive care unit for observation currently in case he deteriorates. Job ID: [id number]
[2020-03-09] MEDS: Sodium Bicarbonate 150 MEQ in Dextrose 5% in Water 1,000 ML IV SCH (18:29)
[2020-03-09 19:35] LABS: Lactic Acid 2.5 mmol/L (0.5-2.2)
[2020-03-09] MEDS ORDERED: [UNRECOGNIZED DRUG - OTHER] IV SCH (22:00)
[2020-03-09] MEDS ORDERED: metroNIDAZOLE 500 MG in Premix Bag 1 BAG IVPB SCH (22:00)
[2020-03-09] MEDS ORDERED: CALCIUM CHLORIDE IV SCH (22:00)
[2020-03-09] MEDS ORDERED: SODIUM ACETATE IV SCH ×3 (22:00)
[2020-03-09] MEDS ORDERED: [UNRECOGNIZED DRUG - OTHER] IV SCH (22:00)
[2020-03-09] MEDS ORDERED: SODIUM CHLORIDE IV SCH ×3 (22:00)
[2020-03-09] MEDS ORDERED: CALCIUM GLUCONATE IV SCH (22:00)
[2020-03-09] MEDS ORDERED: POTASSIUM CHLORIDE IV SCH (22:00)
[2020-03-09] MEDS ORDERED: [UNRECOGNIZED DRUG - OTHER] IV SCH (22:00)
[2020-03-10] MEDS: Acetaminophen 500 MG TAB PO PRN ×2 (02:21→23:02)
[2020-03-10] MEDS: metroNIDAZOLE 500 MG in Premix Bag 1 BAG IVPB SCH ×3 (02:21→17:10)
[2020-03-10 05:00] LABS: #Basophils 0.1 thou/uL (0.0-0.2); #Lymphocytes 0.9 thou/uL (1.20-3.40); #Monocytes 1.7 thou/uL (0.11-0.59); %Basophils 0.4 % (0.0-1.0); %Eosinophils 0.3 % (0.0-10.0); %Lymphocytes 6.6 % (21.0-51.0); %Monocytes 12.4 % (0.0-10.0); %Neutrophils 80.3 % (42.0-75.0); Hemoglobin 12.4 g/dL (14.0-18.0); Mean Corpuscular HGB CONC 32.6 g/dL (32.0-36.0); Mean Corpuscular Hemoglobin 32.7 pg (27.0-31.0); Mean Platelet Volume 7.3 fL (7.4-10.4); Platelet Count 552 thou/uL (130-400); White Blood Cell (WBC) Count 13.7 thou/uL (4.8-10.8)
[2020-03-10 05:22] LABS: Anion Gap 16 mmol/L (10-20); BUN (Urea Nitrogen) 59 mg/dL (8.4-25.7); Calc. Creatinine Clearance 21 mL/min (70-130); Carbon Dioxide 24 mmol/L (23-31); Chloride 96 mmol/L (98-107); Estimated GFR-MDRD 14; Glucose 141 mg/dL (80-115); Potassium 5.5 mmol/L (3.5-5.1); Sodium 130 mmol/L (136-145)
[2020-03-10] MEDS: Sodium Bicarbonate 150 MEQ in Dextrose 5% in Water 1,000 ML IV SCH (05:52)
[2020-03-10] MEDS: Metoclopramide HCl 10 MG/2 ML VIAL IVP SCH ×3 (05:52→22:38)
--- NOTE | 2020-03-10 06:14 | CON ---
DATE OF CONSULTATION: 03/09/2020 SERVICE: Nephrology. REQUESTING PHYSICIAN: Dr. Jaleel Cade. REASON FOR CONSULTATION: Acute kidney injury and hyperkalemia. CHIEF COMPLAINT: Worsening abdominal pain. HISTORY OF PRESENT ILLNESS: A 69-year-old male with past medical history significant for prostate cancer, status post robotic prostatectomy on February 17, which was complicated by worsening abdominal pain associated with nausea and vomiting, necessitating re-presentation to the hospital on February 21 when he was admitted for possible ileus. The patient was initially managed conservatively, but due to worsening symptoms and later imaging showing transition zone, he had a diagnostic laparoscopy on February 27, which was however unremarkable, though diverticular disease involving the sigmoid colon was noted. The patient later developed loose stool and continued to have loose stool. Hospital course since then was complicated by development of C difficile colitis as well as lower extremity DVT, for which he is on anticoagulation with Eliquis. The patient however continued to have abdominal pain, which he states was colicky and intermittent previously, but in the last few days, especially last night has been persistent. The patient also reported poor appetite and nausea as well as poor oral intake. He has been on TPN since February 27 with minimal or no oral intake. Review of I and O showed the patient was in negative balance for several days up until yesterday when he was noted to have poor urine output. Of note, the patient denied urinary symptoms and even after removal of Smith catheter on March 07. He has no difficulty voiding and denies abdominal fullness or symptoms of incomplete voiding. He has remained afebrile and denied shortness of breath. Review of medical record also showed that the patient had normal creatinine of 0.8 on March 05. However, the next blood check on March 08 showed creatinine of 1.6, which went up further today to 3.3, associated with hyperkalemia, hence Nephrology consult. The patient had bouts of hyperkalemia and has been getting potassium supplementation in TPN. TPN currently contains 30 of potassium phosphate as well as 60 mEq of potassium chloride and is currently getting TPN running. The patient continued to have loose stool, though reported that stool consistency seems to be improving. He has already had 3 bowel motions today. PAST MEDICAL HISTORY: 1. Prostate cancer. 2. Recent diagnosis of lower extremity DVT during this hospitalization. PAST SURGICAL HISTORY: 1. Robotic prostatectomy. 2. Diagnostic laparotomy. FAMILY HISTORY: Reviewed, but noncontributory. SOCIAL HISTORY: Denies alcohol, smoking, or recreational drug use. ALLERGIES: REPORTED ALLERGIC REACTION TO CODEINE, WHICH IS MAINLY SIDE EFFECTS RELATED TO STOMACH UPSET AND NAUSEA. MEDICATIONS: Prior to hospital medications; 1. Acetaminophen 1000 mg p.o. q.6 p.r.n. 2. Docusate 100 mg p.o. b.i.d. p.r.n. for constipation. Current hospital medications include the following; 1. TPN. 2. Metronidazole 500 mg q.8 hours. 3. Sodium chloride infusion 120 mL/hour. 4. Metoclopramide 10 mg IV at bedtime. 5. Eliquis 10 mg p.o. b.i.d. 6. Protonix 40 mg IV daily. 7. Saccharomyces boulardii 250 mg p.o. daily. 8. Vancomycin oral 125 mg q.i.d. 9. Acetaminophen 250 mg q.4 p.r.n. 10. Ibuprofen 600 mg q.6 p.r.n. 11. Ondansetron 8 mg IV q.6 hours p.r.n. for nausea and vomiting. REVIEW OF SYSTEMS: Pertinent positives and negatives included in the history of present illness. Otherwise, 12-point review of system performed was negative. PHYSICAL EXAMINATION: VITAL SIGNS: Temperature 97.6, pulse 119, respiratory rate 18, SpO2 of 97% on room air, blood pressure 145/84. GENERAL: Healthy-looking male patient, in no obvious distress. Afebrile. Anicteric. Acyanotic. HEENT: Normocephalic and atraumatic. Oral mucosa is mildly dry. NECK: Supple with no JVD. CARDIOVASCULAR: Regular rhythm and rate, but tachycardic. RESPIRATORY: Fair air entry bilaterally with some transmitted breath sounds. No respiratory distress appreciated. GI: Abdomen is full, mildly distended with diffuse tenderness. Surgical wounds noted in the abdomen. Bowel sound is hypoactive. EXTREMITIES: Bilateral leg edema noted. No erythema appreciated. BOX CHIPPER: Conscious, alert, oriented x3 with appropriate mental status. Cranial nerves 2 through 12 are grossly intact. DIAGNOSTIC DATA: CBC today showed WBC count of 12.2, hemoglobin of 13.3, MCV of 102, platelet of 557. BMP performed earlier today showed sodium 132, potassium 5.6, chloride 102, CO2 of 21, BUN 43, creatinine 3.30, glucose 132, calcium 9.1. IMAGING STUDIES: Abdominal x-ray performed earlier today showed progressive dilatation with somewhat distended stomach as well as slightly progressively dilated small bowel and minimally dilated cecum. No overt free intraperitoneal air or overt calculus was noted. ASSESSMENT: 1. Acute kidney injury: This seems to be multifactorial. The patient is on NSAID, and NSAID induced nephropathy and the patient also has features of volume depletion given negative fluid balance in the last several days. Oral intake has remained poor due to persistent abdominal distention. Of note, the patient had normal creatinine on March 05 with creatinine of 0.8, which has gone up to 3.3 currently. 2. Hyperkalemia: Due to acute kidney injury in a patient getting potassium supplementation in the form of TPN. 3. Metabolic acidosis: Due to acute kidney injury. Intraperitoneal infection or gut is another concern given acute increase in WBC as well as persistent tachycardia raising concern for sepsis. 4. Systemic inflammatory response of unclear etiology. Given worsening abdominal findings, abdominal pathology is a concern. 5. Prostate cancer, status post prostatectomy. 6. Lower extremity deep venous thrombosis, on anticoagulation. 7. Persistent abdominal distention. 8. Clostridium difficile colitis on treatment. 9. Diverticular disease. PLAN: 1. We will stop current TPN since he had potassium supplementation. I have called the pharmacy to remove potassium supplementation in subsequent TPN. 2. We will get urinalysis as well as urine electrolytes. I agree with repeating renal function test later today. 3. We will substitute normal saline with sodium bicarb containing infusion. 4. Further treatment to follow depending on hospital course and review of other diagnostic tests. Other treatment as per General Surgery and primary attending. Many thanks for involving us in the care of this patient. We will follow along with you. Job ID: [id number]
[2020-03-10 06:21] LABS: ALT (SGPT) 25 U/L (8-55); AST (SGOT) 23 U/L (5-34); Albumin 3.2 g/dL (3.4-4.8); Alkaline Phosphatase 70 U/L (40-110); Bilirubin, Direct 0.2 mg/dL (0.1-0.3); Bilirubin, Total 0.4 mg/dL (0.2-1.2); Protein, Total 6.4 g/dL (5.8-8.1)
[2020-03-10 06:21] LABS: Magnesium 2.3 mg/dL (1.6-2.6); Phosphorus 4.6 mg/dL (2.3-4.7)
--- NOTE | 2020-03-10 07:41 | ULT ---
Exam: Bilateral renal ultrasound HISTORY: Acute kidney insufficiency. Decreased urine output. Evaluate for obstruction COMPARISON: None FINDINGS: Right kidney: Normal cortical echotexture. No hydronephrosis. Right kidney measurements: 4.6 x 5.6 x 12.1 cm. Left kidney: Normal cortical echotexture. No hydronephrosis Left kidney measurements 5.2 x 6.5 x 10.5 cm. Urinary bladder: Decompressed due to Smith catheterization IMPRESSION: No hydronephrosis.
[2020-03-10 07:42] LABS: Lactic Acid 1.9 mmol/L (0.5-2.2)
--- NOTE | 2020-03-10 08:02 | RAD ---
Exam: Abdomen one view HISTORY: Epigastric pain. Abdominal distention COMPARISON: 03/09/2020 FINDINGS: Redemonstration of multiple air-filled loops of small bowel. The degree of small bowel distention has slightly decreased. There is a paucity of gas in the colon. Residual contrast is noted in the decompressed left and right hemicolon. The possibility of a partial obstructive process cannot be exc luded. Limited evaluation for pneumoperitoneum on this supine projection. IMPRESSION: Possible partial small bowel obstruction.
[2020-03-10] MEDS ORDERED: Heparin 25,000 units/D5W 500 ML IVPB SCH (08:15)
--- NOTE | 2020-03-10 08:20 | PRG ---
DATE OF SERVICE: 03/10/2020 SERVICE: Nephrology. SUBJECTIVE: A 69-year-old male, admitted due to postoperative ileus, which however is persistent. Nephrology was consulted for acute kidney injury and electrolyte derangements. The patient is still complaining of abdominal distention and pain. Nausea and poor oral intake persist. The patient was moved to the ICU last night due to worsening hyperkalemia and metabolic acidosis. Remained afebrile. OBJECTIVE: VITAL SIGNS: Temperature 97.4, pulse 115, respiratory rate 29, SpO2 of 96 on room air, blood pressure is 138/47. GENERAL: Elderly male, in no obvious distress. Fatigued, but afebrile and anicteric. HEENT: Normocephalic and atraumatic. Oral mucosa is dry. NECK: Supple with no JVD. CARDIOVASCULAR: Regular rhythm and rate, but tachycardic. RESPIRATORY: Fair air entry bilaterally with some transmitted breath sounds. Tachypneic. Air entry is mildly decreased at both bases. GI: Distended and tympanitic with diffuse tenderness. Bowel sound is hypoactive. Scars of prior surgical procedures noted. EXTREMITIES: Mild bilateral leg edema noted. No erythema appreciated. DIVERSIFIED CROPS FARMER: Conscious, alert, oriented x3 with appropriate mental status. Cranial nerves 2 through 12 are grossly intact. DIAGNOSTIC DATA: CBC today showed WBC count of 13.7, hemoglobin of 12.4, MCV of 100.0, platelets of 552. CMP today showed sodium of 130, potassium 5.5, chloride 96, CO2 of 24, BUN 59, creatinine 4.25, glucose 141, calcium 9.0, total bilirubin 0.4, AST 23, ALT 25, alkaline phosphatase 70, total protein 6.4, albumin 3.2. Phosphorus is 4.6 and magnesium is 2.3. Repeat urinalysis and urine electrolytes are pending at this time. CT scan of the abdomen and pelvis performed yesterday evening, showed interval development of small ascites as well as trace bilateral pleural effusion with adjacent atelectasis. No evidence of bowel obstruction or significant bowel distention was noted. Diverticulosis again was reported. Lactic acid performed yesterday was elevated at 2.5. ASSESSMENT: 1. Acute renal failure: Creatinine continues to trend up. This is suggestive of acute tubular necrosis. Etiology however remains unclear. The patient has, however, developed tachycardia with elevation in WBC as well as lactic acid with worsening abdominal symptoms concerning for sepsis. Volume contraction due to poor oral intake maybe contributory as well. The patient also has been on nonsteroidal anti-inflammatory drugs. Seems to be multifactorial in etiology. Urine output dropped significantly in the last 8 to 12 hours. The patient reportedly made only 15 mL of urine in the last 8 hours. 2. Systemic inflammatory response. 3. Hyperkalemia: Due to acute kidney injury and potassium supplementation. Potassium is trending downward with correction of metabolic acidosis and discontinuation of potassium supplementation. 4. Volume overload. Repeat imaging showed mild pleural effusion as well as ascites. The patient is still getting TPN and IV fluids while urine output has dropped significantly. 5. Persisted abdominal distention/ileus: New onset acute kidney injury is concerning for compartment syndrome, though abdominal distention is not marked and abdomen is not overtly stretched. 6. Metabolic acidosis: Due to systemic inflammatory response and acute kidney injury. Improved with sodium bicarbonate infusion. 7. Prostate cancer, status post prostatectomy. PLAN: 1. We will expand intravascular space with albumin to see if tachycardia will improve. We will also give Lasix 80 mg x1 to see if urine output will improve. 2. We will get urinalysis and urine electrolytes as ordered. 3. We will also get a renal ultrasound to rule out obstructive pathology. 4. We will recheck renal function test in 6 hours. 5. We will discontinue sodium bicarbonate after current bag. 6. Further treatment to follow depending on hospital course. 7. Strict intake and output are recommended. Job ID: [id number]
[2020-03-10] MEDS: Saccharomyces boulardii 250 MG CAP PO SCH (09:23)
[2020-03-10] MEDS: Furosemide 100 MG/10 ML VIAL SLOW IVP SCH ×2 (09:23→10:34)
[2020-03-10] MEDS: Vancomycin HCl 25 MG/ML Oral PO SCH ×4 (09:23→22:38)
[2020-03-10] MEDS: Albumin 25% 25 GM/100 ML BOT IVPB SCH ×2 (09:25→14:12)
[2020-03-10] MEDS: Pantoprazole 40 MG VIAL IVP SCH (09:25)
[2020-03-10] MEDS: Heparin 10,000 UNITS/ 10 ML VIAL SLOW IVP SCH (09:27)
[2020-03-10 10:36] LABS: Bilirubin Negative (Negative); Blood, Urine 2+ (Negative); Clarity Turbid (Clear); Glucose, Urine (Dipstick) 150 mg/dL (Negative); Leukocyte Negative Leu/uL (Negative); Nitrite Negative (Negative); Protein, Urine (Dipstick) 300 mg/dL (Neg-Trace); RBC/HPF Greater than 50 HPF (0-3); Squamous Epithelial None Seen HPF (0-3); Urobilinogen Normal mg/dL (Less than 2)
--- NOTE | 2020-03-10 10:53 | CON ---
DATE OF CONSULTATION: 03/10/2020 CONSULTING PHYSICIAN: Garrett Yung MD REASON FOR CONSULTATION: ICU management. HISTORY OF PRESENT ILLNESS: Mr. Murphy is a pleasant 69-year-old male, who has been in the hospital since February 21. On 02/18/2020, he had undergone a radical robotic guided prostatectomy by Dr. Bautista. The day afterward, he developed increasing abdominal pain. Three days after surgery, it got to the point where he could not stand it anymore. He began having nausea and vomiting, and was subsequently admitted to the hospital for ileus versus bowel injury. Dr. Reyes saw the patient in consultation. The patient underwent an exploratory laparotomy on 02/29/2020, which demonstrated no evidence of small bowel obstruction, no adhesions, really an unremarkable laparoscopy. The patient's perioperative course has been complicated by the development of C difficile colitis and a DVT in the right posterior tibial vein and the left posterior tibial vein. He is now on anticoagulation with Eliquis. He has developed progressive renal insufficiency, hyperkalemia, and metabolic acidosis, and is currently being seen by Nephrology. PAST MEDICAL HISTORY: Prostate cancer. PAST SURGICAL HISTORY: Radical prostatectomy. PSYCHIATRIC HISTORY: Unremarkable. SOCIAL HISTORY: Nonsmoker. Does not consume alcohol. ALLERGIES: CODEINE CAUSES NAUSEA. MEDICATIONS: Prior to admission, none. Current inpatient medications; 1. Albumin. 2. Eliquis. 3. Furosemide. 4. Metoclopramide. 5. Flagyl. 6. Zofran. 7. Protonix. 8. Oral vancomycin. REVIEW OF SYSTEMS: Remarkable for diffuse abdominal pain. No nausea, no vomiting. He does pass gas. PHYSICAL EXAMINATION: VITAL SIGNS: Temperature 97.4, pulse 119, blood pressure 150/90, respiratory rate 24, O2 saturation 96% on room air. GENERAL: The patient appears uncomfortable but is talking without limitation. HEENT: Pupils are reactive. Sclerae are anicteric. Oropharynx is clear. NECK: No adenopathy or JVD. LUNGS: Shallow breath sounds but clear. CARDIOVASCULAR: S1, S2. Tachycardic. ABDOMEN: Distended, tympanic. He has diffuse tenderness over the left lower quadrant of his abdomen. No particular rebound tenderness. EXTREMITIES: No clubbing, cyanosis, or edema. LABORATORY DATA: Sodium 130, potassium 5.5, chloride 96, CO2 of 24, BUN 59, creatinine 4.2, glucose 141. White blood cell count 13.7, hematocrit 38.1, and platelet count 552. A CT of the abdomen yesterday demonstrated some ascites. No evidence of bowel obstruction. Did have some diverticulosis. Renal ultrasound obtained today showed no hydronephrosis. ASSESSMENT: A 69-year-old male, who is in continued abdominal pain several weeks after a radical prostatectomy. Initial laparoscopy was negative. Now, with the development of Clostridium difficile colitis which seems to be controlled after many days of oral vancomycin. Does not appear to be any evidence of toxic megacolon by CT scan. Has developed progressive renal failure without evidence of hydronephrosis. Would have some concern about bowel infarction or renal infarction given DVT. RECOMMENDATION: From pulmonary standpoint, he is stable. He may require renal replacement therapy for the progressive acidosis and acute kidney injury. We will be happy to follow with you. Job ID: [id number]
[2020-03-10 11:51] LABS: Bacteria/HPF Rare-Few HPF (None Seen)
[2020-03-10 11:52] LABS: Yeast-Budding None Seen HPF (None Seen)
[2020-03-10 11:54] LABS: Urine Culture Reflex Yes Yes
--- NOTE | 2020-03-10 12:24 | PRG ---
DATE OF SERVICE: 03/10/2020 SUBJECTIVE: The patient states he is not feeling well. His abdomen is hurting. He is still urinating. He says that he has good continence. General Surgery has requested that he had a Smith catheter replaced secondary to worsening acute kidney injury and renal failure for adequate monitoring of his in's and out's. Renal ultrasound has been performed as the patient's creatinine is now up to 4.45 and no hydronephrosis was detected. OBJECTIVE: VITAL SIGNS: Temperature 97.6, pulse 106, blood pressure 167/61, respirations 15, and saturation 96% on room air. GENERAL: No apparent distress, communicative and alert. Does not look well, but does not appear to be in excruciating pain. CARDIOVASCULAR: Sinus tachycardia. Symmetric pulses. ABDOMEN: Soft, distended, tender to palpation diffusely. No rebound or guarding. Incision is clean, dry, and intact. : Meatus is large, but no bleeding. Scrotum is small, nonedematous, rugated, and symmetric. EXTREMITIES: 1+ edema bilaterally. LABORATORY EVALUATION: White count is 13.7, hemoglobin 12.4, platelet count of 552. The patient's creatinine has elevated to 4.25. Renal ultrasound demonstrates no hydronephrosis. ASSESSMENT AND PLAN: A 69-year-old white male with Clostridium difficile colitis, worsening acute kidney injury, progressing to renal failure and deep venous thromboses, status post robotic prostatectomy for prostate cancer. From a prostate standpoint, he seems to be doing very well. He is urinating on his own and is continent. Unfortunately, he does require replacement of the catheter secondary to his acute kidney injury to monitor his I's and O's accurately. I have placed the catheter today using sterile technique, please see procedure note below. Catheter can stay in as long as necessary and can be removed as soon as possible once the patient's creatinine starts to resolve. At the current time, I am not entirely sure the cause of the patient's renal failure. Nephrology has been consulted. GI is continuing to manage the patient's bowel symptoms, which remain unusual and unclear as to the exact nature of why he is not progressing and improving. I will be available, but there is a limited role that I will be able to provide at this time. I have discussed with Dr. Brody Brian and we have agreed that it would probably be best for the patient to stop his Eliquis and start a heparin drip since he is probably not absorbing his Eliquis adequately. I will be available if needed. Job ID: [id number]
[2020-03-10 12:30] LABS: Creatinine, Urine Less than 20.00 mg/dL (63-166); Sodium, Urine 112 mmol/L (Not Available)
[2020-03-10 12:42] LABS: Protein, Urine Random Quant 311 mg/dL (1-14)
--- NOTE | 2020-03-10 14:09 | PRG ---
DATE OF SERVICE: 03/10/2020 SUBJECTIVE: Mr. Murphy had significant lower abdominal discomfort this morning and abdominal distention. He had a Smith catheter placed and had a large amount of output of yellowish pink fluid with marked improvement in his abdominal pain. He still has tenderness in his lower abdomen. He has had no nausea or vomiting. He had three bowel movements over the last 24 hours per his recollection, which are still runny, but doing better. OBJECTIVE: T 97.4 BP 140/70 P 106 Gen: NAD, A+Ox3 Lungs: CTA B CV: Tachy, s1s2 no m ABD: soft, tender lower abdomen without guarding. Bowel sounds present Ext: no edema LABORATORY DATA: White blood cell count 13.7, hemoglobin 12.4, platelets 552. Creatinine 4.25. IMPRESSION: 1. Clostridium difficile colitis appears to be improving with oral vancomycin. 2. Abdominal distention, currently improved status post placement of Smith catheter. He still has lower abdominal tenderness, but this has improved. 3. Ileus. His left colon is completely decompressed on CT scan. He has dilation of his right colon. He likely has some degree of a colonic ileus related to his Clostridium difficile infection and immobility post surgery. RECOMMENDATIONS: 1. He has no nausea and his abdominal distention is improved. He is having bowel movements. It should be okay to give a trial of clear liquid diet once he is cleared by General Surgery. 2. Complete a 14-day course of the oral vancomycin. Job ID: [id number] [id number]
[2020-03-10 15:00] LABS: PTT Greater than 250.0 SEC (22.9-36.1)
[2020-03-10] MEDS ORDERED: Insulin Regular 300 UNITS/3 ML VIAL SC PRN (16:23)
[2020-03-10] MEDS ORDERED: Dextrose 50% Abboject 50 ML SYRINGE SLOW IVP PRN (16:23)
[2020-03-10] MEDS ORDERED: Dextrose 5% in Water 1,000 ML IV PRN (16:23)
--- NOTE | 2020-03-10 16:54 | PRG ---
DATE OF SERVICE: 03/10/2020 SUBJECTIVE: Mr. Murphy is resting comfortably in the intensive care unit this afternoon. I transferred him to the ICU yesterday secondary to concerning series of findings yesterday. At that time, he was hyperkalemic, acidotic with progressive renal failure, tachycardic, and had significant finding of abdominal ascites. He seemed to be deteriorating and there was no good explanation as to why. Since he was admitted, he believes he has had four bowel movements mostly mucoid. He has only had one bowel movement on the day shift today and it is currently 4 p.m. This morning, Dr. Bautista replaced his Smith catheter at my request. The patient had fairly severe abdominal pain prior to that. After placement, he has had a massive urine output and has had approximately 10 L output during the shift today since 8:30 (in less than 8 hours). He notes that he feels much better than he did this morning. He has been more or less n.p.o. but taking sips of water with medicine. PHYSICAL EXAMINATION: VITAL SIGNS: His heart rate has been lower today than it was yesterday. It has been around 100 to 105 most of the day. His blood pressure remains stable at 140/70. Oxygen saturation is 96% to 98% on room air. GENERAL: He is pleasant and comfortable. LUNGS: Clear to auscultation throughout. ABDOMEN: Less distended than yesterday. There is hypoactive bowel sounds. His incisions remain nicely healed. There is no significant abdominal tenderness noted. LABORATORY DATA: His CBC from today shows his white blood cell count has risen from 12.2 yesterday to 13.7 today. Hemoglobin remained stable at 12.4. His potassium dropped from 6.6 down to 5.5. His CO2 has risen from 16 to 24. His creatinine went from 4 yesterday afternoon to 4.25 this morning. Liver function tests are normal. His lactate dropped from 2.5 yesterday evening down to 1.9 this morning. ASSESSMENT: The patient continues to have a confusing course. He has altered bowel function but it is uncertain why. I felt that he was about ready to be discharged earlier this week, hopefully with resolution of his current bladder related issues that his bowel problems will improve once again. It does not make any sense in regard to his bladder. 10 L of urine output is dramatically high output that he had in spite of not having any distention of his bladder noted on CT scan yesterday. I am also not certain why he had the ascites found on his abdomen. PLAN: For now, we will continue his TPN. I will recheck his electrolytes to make sure he is trending in the right direction with his massive diuresis. I will leave him in the intensive care unit for this evening, but hope that he would be continued to stabilize and be ready for transfer back to the floor tomorrow. Job ID: [id number]
[2020-03-10 17:58] LABS: Albumin 3.6 g/dL (3.4-4.8); Anion Gap 12 mmol/L (10-20); BUN (Urea Nitrogen) 42 mg/dL (8.4-25.7); BUN/Creatinine Ratio 17.28; Calc. Creatinine Clearance 37 mL/min (70-130); Carbon Dioxide 30 mmol/L (23-31); Chloride 98 mmol/L (98-107); Estimated GFR-MDRD 27; Glucose 134 mg/dL (80-115); Phosphorus 4.4 mg/dL (2.3-4.7); Potassium 4.2 mmol/L (3.5-5.1); Sodium 136 mmol/L (136-145)
[2020-03-10 17:59] LABS: Anion Gap 13 mmol/L (10-20); BUN (Urea Nitrogen) 42 mg/dL (8.4-25.7); Calc. Creatinine Clearance 37 mL/min (70-130); Calcium 9.1 mg/dL (7.8-10.44); Carbon Dioxide 29 mmol/L (23-31); Chloride 98 mmol/L (98-107); Estimated GFR-MDRD 27; Glucose 133 mg/dL (80-115); Potassium 4.2 mmol/L (3.5-5.1); Sodium 136 mmol/L (136-145)
[2020-03-10] MEDS ORDERED: Sodium Bicarbonate 50 MEQ in Sodium Chloride 0.45% 1,000 ML IV SCH (18:45)
[2020-03-10] MEDS ORDERED: SODIUM ACETATE IV SCH (22:00)
[2020-03-10] MEDS ORDERED: CALCIUM CHLORIDE IV SCH (22:00)
[2020-03-10] MEDS ORDERED: [UNRECOGNIZED DRUG - OTHER] IV SCH (22:00)
[2020-03-10] MEDS ORDERED: SODIUM CHLORIDE IV SCH (22:00)
[2020-03-11] MEDS: Heparin 10,000 UNITS/ 10 ML VIAL SLOW IVP SCH (01:33)
[2020-03-11] MEDS: metroNIDAZOLE 500 MG in Premix Bag 1 BAG IVPB SCH ×3 (01:34→18:17)
[2020-03-11 05:06] LABS: Band 4 % (5-11); Hemoglobin 10.9 g/dL (14.0-18.0); Lymphocytes 14 % (21-51); MDiff Complete? YES; Mean Corpuscular HGB CONC 31.6 g/dL (32.0-36.0); Mean Platelet Volume 7.3 fL (7.4-10.4); Monocytes 7 % (0-10); Neutrophil 75 % (42-75); Platelet Count 457 thou/uL (130-400); Platelet Morphology Comment Appears Increased; RBC Distribution Width 12.1 % (11.5-14.5); Red Blood Cell (RBC) Count 3.41 mill/uL (4.70-6.10); Small Platelets SLIGHT; White Blood Cell (WBC) Count 9.8 thou/uL (4.8-10.8)
[2020-03-11 05:12] LABS: Phosphorus 3.8 mg/dL (2.3-4.7)
[2020-03-11 05:13] LABS: ALT (SGPT) 22 U/L (8-55); AST (SGOT) 22 U/L (5-34); Albumin 3.1 g/dL (3.4-4.8); Alkaline Phosphatase 47 U/L (40-110); Anion Gap 9 mmol/L (10-20); BUN (Urea Nitrogen) 34 mg/dL (8.4-25.7); Bilirubin, Direct 0.3 mg/dL (0.1-0.3); Bilirubin, Total 0.6 mg/dL (0.2-1.2); Calc. Creatinine Clearance 60 mL/min (70-130); Calcium 8.5 mg/dL (7.8-10.44); Carbon Dioxide 33 mmol/L (23-31); Chloride 99 mmol/L (98-107); Estimated GFR-MDRD 46; Glucose 126 mg/dL (80-115); Potassium 3.7 mmol/L (3.5-5.1); Protein, Total 5.4 g/dL (5.8-8.1); Sodium 137 mmol/L (136-145)
[2020-03-11] MEDS: Metoclopramide HCl 10 MG/2 ML VIAL IVP SCH ×3 (06:27→23:32)
[2020-03-11] MEDS: Sodium Chloride 0.9% 1,000 ML IV SCH ×3 (07:41→23:32)
--- NOTE | 2020-03-11 07:49 | PRG ---
DATE OF SERVICE: 03/11/2020 SUBJECTIVE: Mr. Murphy voided 12 L of urine yesterday after Smith catheter was inserted. Subsequently, he had almost entire resolution of his abdominal pain and his creatinine has dropped precipitously. He is now able to tolerate oral medication and liquid diet. I have put him on a heparin drip yesterday because we were concerned at that time about his abdominal pain and the possibility that he might not be absorbing the Eliquis and could have some type of ischemic syndrome in his gut. That has turned out not to be the case. OBJECTIVE: VITAL SIGNS: Today, his temperature is 97.6, pulse 102, blood pressure 143/66, O2 saturation 97%. HEENT: Unremarkable NECK: No adenopathy or JVD. LUNGS: Clear. CARDIAC: S1, S2. Slightly tachycardic. ABDOMEN: Much softer and less tender than yesterday. EXTREMITIES: No edema. LABORATORY DATA: Sodium 137, potassium 3.7, chloride 99, CO2 of 33, BUN 34, creatinine 1.5, glucose 126. White blood cell count 9.8, hematocrit 34, and platelet count 457. ASSESSMENT: 1. Post bladder obstruction, now relieved with Smith catheter placement. 2. Resolving abdominal pain. 3. Deep venous thrombosis. PLAN: 1. I will go ahead and stop heparin drip and switch him back to Eliquis, but leave the dose of 5 mg b.i.d. He will need to be treated for a period of six months. 2. Can go back to the floor from my standpoint. Job ID: [id number]
[2020-03-11] MEDS: Vancomycin HCl 25 MG/ML Oral PO SCH ×4 (08:09→20:22)
[2020-03-11] MEDS: Saccharomyces boulardii 250 MG CAP PO SCH (08:10)
[2020-03-11] MEDS: Sodium Chloride 0.9% (PF) 10 ML VIAL FS PRN (08:11)
[2020-03-11] MEDS: Pantoprazole 40 MG VIAL IVP SCH (08:11)
--- NOTE | 2020-03-11 09:40 | PRG ---
DATE OF SERVICE: 03/11/2020 SERVICE: Nephrology. SUBJECTIVE: A 69-year-old male, admitted with abdominal distention and poor oral intake as well as nausea few days after a robotic prostatectomy with features consistent with postoperative ileus. The patient had a very very confusing and complicated course with worsening renal failure, requiring Nephrology consult in the last few days. The patient had developed worsening abdominal distention with minimal urine output. However, CT scan of the abdomen and ultrasound of the abdomen showed no bladder distention or hydronephrosis. However, with passage of Smith catheter, the patient put out immediately about 750 mL of serosanguineous fluid with marked improvement in abdominal distention as well as improvement in renal function. The patient reports markedly improved symptoms, though continues to complain of poor appetite and nausea. He remained afebrile. OBJECTIVE: VITAL SIGNS: Temperature 97.6, pulse 108, respiratory rate 19, SpO2 of 95 on room air, blood pressure is 135/73. GENERAL: Healthy-looking, elderly, in no distress. The patient appears younger than stated age. HEENT: Normocephalic and atraumatic. Oral mucosa is mildly moist. CARDIOVASCULAR: Regular rhythm and rate with normal heart sounds 1 and 2. Mildly tachycardic. RESPIRATORY: Fair air entry bilaterally with some transmitted breath sounds. No obvious crackle or rhonchi or use of accessory muscles. GI: Full, soft, with mild diffuse tenderness. Scars of previous surgical incisions noted. Bowel sound is hypoactive. UROGENITAL: Smith catheter is in place draining serous urine. EXTREMITIES: Grossly normal looking, atraumatic with no obvious edema or erythema. DISTILLERY WORKER: Conscious, alert, oriented x3 with appropriate mental status. Cranial nerves 2 through 12 are grossly intact. DIAGNOSTIC DATA: CBC showed WBC count of 9.8, hemoglobin of 10.9, MCV of 101, platelets of 457. BMP showed sodium 137, potassium 3.7, chloride 99, CO2 of 33, BUN 34, creatinine 1.51, glucose 126, calcium 8.5, total bilirubin 0.6, AST 22, ALT 22, alkaline phosphatase 47, total protein 5.4, albumin 3.1. ASSESSMENT: 1. Acute kidney injury: Most likely due to abdominal compartment syndrome. The patient had abdominal distention and pain, which markedly improved with passage of Smith catheter and subsequent drainage of about 10 L of serous fluid in the last 12 hours. Creatinine is trending downwards. Initially observed systemic inflammatory response as evidenced by tachycardia and leukocytosis has improved significantly. This raises a concern of abdominal communication between the bladder and the peritoneal space. 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 3. Metabolic acidosis: Improved or rather resolved with alkali therapy. 4. Bilateral leg edema: Resolved. 5. Metabolic alkalosis: Due to treatment with sodium bicarbonate. 6. Acute anemia with hemoglobin down to 10 from above 12. Most likely related to bloody urine. 7. Systemic inflammatory response: Improved. 8. Clostridium difficile colitis, on treatment. 9. Hyperkalemia: Resolved. PLAN: 1. We will discontinue sodium bicarbonate and start normal saline at 125 mL/hour. The patient is putting on large amount of fluids to prevent dehydration as oral intake is still little or nothing. 2. We will start potassium supplementation in TPN as renal function is improving and potassium is trending downwards in a patient with persistent postoperative ileus. 3. We will continue to monitor intake and output strictly and adjust treatment as indicated. 4. Evaluation of presumed cystoperitoneal fistula as per Urology and General Surgery. 5. Advanced diet as tolerated if cleared by General Surgery and Urology. Further treatment to follow depending on hospital course. Job ID: [id number]
[2020-03-11] MEDS ORDERED: Iopamidol-370 76% 500 ML 1 ML ONE (10:07)
--- NOTE | 2020-03-11 10:20 | RAD ---
Cystogram HISTORY: Urine leak. FINDINGS: Approximately 20 cc of water-soluble contrast was carefully instilled into the urinary blad georgiana via the indwelling Smith catheter. There was immediate extension of contrast outside of the urinary bladder at the posterior right bladder base, resulting in a collection of contrast estimated at 3 cm x 1.5 cm. Bladder contrast was drained. Patient tolerated the procedure well and was returned in unchanged cond ition. IMPRESSION : Small leak from the right posterior bladder base. Findings were called about Dr. Bautista at 0938 hours. Code CR.
[2020-03-11] MEDS: Apixaban 5 MG TAB PO SCH ×2 (12:31→20:22)
[2020-03-11] MEDS: Acetaminophen 500 MG TAB PO PRN ×2 (13:36→20:28)
--- NOTE | 2020-03-11 13:55 | PRG ---
DATE OF SERVICE: 03/11/2020 SUBJECTIVE: Mr. Murphy this morning remained stable in the intensive care unit. He is hospital day #18 for readmission for nausea and vomiting following his prior robotic prostatectomy. He is postoperative day #11 from diagnostic laparoscopy, which confirmed that he had no evidence of small-bowel obstruction. Following his admission to the intensive care unit, yesterday morning, Dr. Bautista placed a Smith catheter. He had an extensive diuresis with urine output yesterday of 12,900 mL. Most of this came out within the first several hours after the catheter was placed. The patient was anticoagulated with heparin and there was blood within the urine. The patient notes today that he feels much better. His abdominal distention has largely resolved. His appetite has improved. His pain has essentially resolved as well. A cystogram was obtained this morning per Dr. Bautista, which did reveal a small posterior bladder leak. This is presumed to be the cause of the fluid that was within his abdomen when he had a CT scan two days ago while he was becoming unstable. OBJECTIVE: VITAL SIGNS: On examination today, his pulse is about 100, blood pressure is 156/80. LUNGS: Clear to auscultation. ABDOMEN: Soft and nontender. Bowel sounds are present, but hypoactive. LABORATORY DATA: His creatinine has dropped from 4.2 yesterday morning down to 1.5 this morning. His BUN has dropped from 59 down to 34. His potassium has dropped from 5.5 yesterday morning down to 3.7. Finally, his white blood cell count has dropped from 13.7 down to 9.8. ASSESSMENT: The patient is stabilized dramatically following Smith catheter placement. I will advance his diet back up to a full liquid diet. He will be transferred to the surgical floor. Smith catheter will be left in place for the time being with management of this per Dr. Bautista. He will continue TPN for now. The patient should require no surgical management as he has no obvious surgical indications. I will therefore resume seeing him on Saturday when I return. If there are surgical problems over the weekend, please contact Dr. Leon in regard to these. Job ID: [id number]
--- NOTE | 2020-03-11 15:04 | PRG ---
DATE OF SERVICE: 03/11/2020 SUBJECTIVE: Mr. Murphy feels better today. He has some mild residual lower abdominal tenderness, but his pain is greatly improved. He has tolerated clear liquids, but has not had much of an appetite still. Remains on TPN. PHYSICAL EXAMINATION: VITAL SIGNS: Temperature 98.7, blood pressure 156/80, pulse 101. GENERAL: He is in no acute distress. Alert and oriented x3. EYES: Have no scleral icterus. LUNGS: Clear to auscultation bilaterally. HEART: Regular rate and rhythm without murmur. ABDOMEN: Soft. Mild tenderness in the lower abdomen without guarding. Bowel sounds are present. EXTREMITIES: No lower extremity edema. LABORATORY DATA: White blood cell count 9.8, hemoglobin 10.9, platelets 457. Creatinine is down to 1.5. IMPRESSION: 1. Clostridium difficile colitis is clinically greatly improved. He did have a couple of loose stools today. He should be completing the vancomycin course shortly. 2. Nausea, vomiting, and abdominal distention. These have resolved after placement of the Smith catheter. He is tolerating clear liquids and is being advance to full liquids now. 3. Bladder leak. He has a Smith catheter in place. RECOMMENDATIONS: 1. He is to be advanced to full liquids today. 2. He is on Eliquis for DVT. 3. TPN. Hopefully, he will be able to continue to advance his diet and wean off the TPN. Job ID: [id number]
[2020-03-11] MEDS: Cepastat Lozenges 1 LOZ PO PRN (20:30)
[2020-03-11] MEDS: POTASSIUM ACETATE IV SCH (21:57)
[2020-03-11] MEDS: [UNRECOGNIZED DRUG - OTHER] IV SCH (21:57)
[2020-03-11] MEDS: SODIUM CHLORIDE IV SCH (21:57)
[2020-03-11] MEDS: SODIUM ACETATE IV SCH (21:57)
[2020-03-11] MEDS ORDERED: POTASSIUM PHOSPHATE IV SCH (22:00)
[2020-03-11] MEDS ORDERED: [UNRECOGNIZED DRUG - OTHER] IV SCH (22:00)
[2020-03-11] MEDS ORDERED: SODIUM CHLORIDE IV SCH (22:00)
[2020-03-11] MEDS ORDERED: SODIUM ACETATE IV SCH (22:00)
[2020-03-12] MEDS: metroNIDAZOLE 500 MG in Premix Bag 1 BAG IVPB SCH ×2 (02:46→10:06)
[2020-03-12] MEDS: Acetaminophen 500 MG TAB PO PRN ×3 (05:41→22:11)
[2020-03-12] MEDS: Metoclopramide HCl 10 MG/2 ML VIAL IVP SCH ×2 (05:41→13:42)
[2020-03-12] MEDS: Apixaban 5 MG TAB PO SCH ×2 (09:59→22:11)
[2020-03-12] MEDS: Saccharomyces boulardii 250 MG CAP PO SCH (09:59)
[2020-03-12] MEDS: Vancomycin HCl 25 MG/ML Oral PO SCH ×2 (09:59→13:41)
[2020-03-12] MEDS: Sodium Chloride 0.9% (PF) 10 ML VIAL FS PRN (10:01)
[2020-03-12] MEDS: Pantoprazole 40 MG VIAL IVP SCH (10:01)
[2020-03-12] MEDS: Sodium Chloride 0.9% 1,000 ML IV SCH ×3 (10:04→22:48)
[2020-03-12 14:48] LABS: Albumin 2.7 g/dL (3.4-4.8); Anion Gap 10 mmol/L (10-20); BUN (Urea Nitrogen) 16 mg/dL (8.4-25.7); BUN/Creatinine Ratio 21.62; Calc. Creatinine Clearance 122 mL/min (70-130); Calcium 8.1 mg/dL (7.8-10.44); Carbon Dioxide 28 mmol/L (23-31); Chloride 102 mmol/L (98-107); Estimated GFR-MDRD Greater than 90; Glucose 99 mg/dL (80-115); Phosphorus 2.6 mg/dL (2.3-4.7); Potassium 3.5 mmol/L (3.5-5.1); Sodium 136 mmol/L (136-145)
--- NOTE | 2020-03-12 15:17 | PRG ---
DATE OF SERVICE: 03/12/2020 SERVICE: Nephrology. SUBJECTIVE: A 69-year-old male with postoperative ileus following robotic prostatectomy, seen in followup for acute kidney injury. The patient reports feeling a lot better. Nausea and vomiting as well as abdominal distention and pain have subsided. Tolerating oral intake. No fever. OBJECTIVE: VITAL SIGNS: Temperature 98.2, pulse 87, respiratory rate 18, SpO2 of 96% on room air, blood pressure is 131/74. GENERAL: A healthy-looking elderly male, in no obvious distress. Afebrile. Anicteric. Acyanotic. HEENT: Normocephalic, atraumatic. Oral mucosa is moist. NECK: Supple with no JVD. CARDIOVASCULAR: Regular rhythm and rate. Normal heart sounds 1 and 2. RESPIRATORY: Good air entry bilaterally with some transmitted breath sounds. No obvious crackle or rhonchi or use of accessory muscles appreciated. GI: Full, soft with normal bowel sounds. Mild diffuse tenderness on deep palpation noted. UROGENITAL: Smith catheter is in place, draining castle-colored urine. EXTREMITIES: Grossly normal looking, atraumatic with no edema or erythema. ASSISTED LIVING CARE MANAGER: Conscious, alert, oriented x3 with appropriate mental status. DIAGNOSTIC DATA: Renal function panel showed sodium 136, potassium 3.5, chloride 102, CO2 of 28, BUN 16, creatinine 0.74, glucose 99, calcium 8.1. Phosphorus 2.6, albumin 2.7. ASSESSMENT: 1. Acute kidney injury: This is most likely due to abdominal compartment syndrome from urine leak into the peritoneal space. Renal function is back to baseline with passage of Smith catheter and decompression of abdominal distention. 2. 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 Smith catheter is in place. 3. Metabolic acidosis: Resolved. 4. Prostate cancer, status post prostatectomy. 5. Clostridium difficile colitis, on treatment. 6. Postoperative ileus: Resolved. The patient is tolerating oral intake. 7. Hypoalbuminemia: Due to poor oral intake. 8. Protein-calorie malnutrition, on nutritional support with total parenteral nutrition. 9. Hyperkalemia: Resolved. PLAN: 1. We will reduce normal saline infusion to 50 mL/h. 2. [place] oral intake advised. 3. We will advance diet to full liquid diet. 4. We will start Ensure Enlive 3 times daily. 5. We will defer cysto peritoneal fistula repair or treatment to Urology. 6. We will recheck renal function tests and CBC in the morning. 7. Further treatment to follow depending on hospital course. Job ID: [id number]
--- NOTE | 2020-03-12 15:29 | PRG ---
DATE OF SERVICE: 03/12/2020 SUBJECTIVE: Mr. Murphy continues to have improvement in his abdominal discomfort. He still had a couple of liquidy stools today. He has had no nausea or vomiting. OBJECTIVE: VITAL SIGNS: Temperature 98.2, pulse 87, blood pressure 131/74. GENERAL: He is in no acute distress. Alert and oriented x3. LUNGS: Clear to auscultation bilaterally. HEART: Regular rate and rhythm without murmur. ABDOMEN: Soft. Minimal tenderness in lower abdomen without guarding. Bowel sounds are present. EXTREMITIES: No lower extremity edema. LABORATORY DATA: Creatinine 0.74. IMPRESSION: 1. Clostridium difficile colitis. He has completed a course of vancomycin and I think he can stop the vancomycin and metronidazole at this point. Given ongoing diarrhea, we will stop the metoclopramide for now. His diarrhea has improved, however, he still has loose stools. We will try to advancing him to full liquid diet; however, he does report a history of lactose intolerance, so we will restrict the lactose as well. 2. Bladder leak. His creatinine has returned to normal after placement of Smith catheter. 3. Ileus, seems to be improving. He still has very little appetite and has only really taken half of an Ensure so far today. RECOMMENDATIONS: 1. Stop vancomycin and metronidazole. 2. Stop metoclopramide. 3. Advance to a full liquid lactose-restricted diet. 4. Continue to encourage oral intake. 5. He remains on TPN for now. Job ID: [id number]
[2020-03-12] MEDS: SODIUM ACETATE IV SCH (22:11)
[2020-03-12] MEDS: [UNRECOGNIZED DRUG - OTHER] IV SCH (22:11)
[2020-03-12] MEDS: POTASSIUM ACETATE IV SCH (22:11)
[2020-03-12] MEDS: SODIUM CHLORIDE IV SCH (22:11)
[2020-03-13] MEDS: Acetaminophen 500 MG TAB PO PRN ×2 (05:53→19:47)
[2020-03-13 05:55] LABS: #Basophils 0.1 thou/uL (0.0-0.2); #Eosinphils 0.5 thou/uL (0.0-0.7); #Lymphocytes 1.1 thou/uL (1.20-3.40); #Monocytes 0.7 thou/uL (0.11-0.59); #Neutrophils 3.4 thou/uL (1.40-6.50); %Basophils 1.3 % (0.0-1.0); %Eosinophils 8.1 % (0.0-10.0); %Lymphocytes 19.2 % (21.0-51.0); %Monocytes 11.8 % (0.0-10.0); %Neutrophils 59.6 % (42.0-75.0); Mean Corpuscular HGB CONC 30.8 g/dL (32.0-36.0); Mean Corpuscular Hemoglobin 31.9 pg (27.0-31.0); Mean Platelet Volume 7.1 fL (7.4-10.4); Platelet Count 360 thou/uL (130-400); RBC Distribution Width 11.6 % (11.5-14.5); Red Blood Cell (RBC) Count 3.12 mill/uL (4.70-6.10); White Blood Cell (WBC) Count 5.7 thou/uL (4.8-10.8)
[2020-03-13 06:17] LABS: Albumin 2.6 g/dL (3.4-4.8); Anion Gap 9 mmol/L (10-20); BUN (Urea Nitrogen) 14 mg/dL (8.4-25.7); BUN/Creatinine Ratio 18.92; Calc. Creatinine Clearance 122 mL/min (70-130); Carbon Dioxide 28 mmol/L (23-31); Chloride 105 mmol/L (98-107); Estimated GFR-MDRD Greater than 90; Glucose 68 mg/dL (80-115); Magnesium 1.9 mg/dL (1.6-2.6); Sodium 138 mmol/L (136-145)
[2020-03-13] MEDS: Saccharomyces boulardii 250 MG CAP PO SCH (09:49)
[2020-03-13] MEDS: Pantoprazole 40 MG VIAL IVP SCH (09:49)
[2020-03-13] MEDS: Apixaban 5 MG TAB PO SCH ×2 (09:49→21:31)
--- NOTE | 2020-03-13 12:17 | PRG ---
DATE OF SERVICE: 03/13/2020 SERVICE: Nephrology. SUBJECTIVE: A 69-year-old male seen in followup for acute kidney injury. The patient was initially admitted due to postoperative ileus and later developed abdominal distention associated with acute kidney injury. Later found to have a bladder leak into the peritoneal space with abdominal distention due to urine leak. Renal function has improved to baseline with a Smith catheter placement. Abdominal pain and distention have subsided and the patient is tolerating oral intake. OBJECTIVE: VITAL SIGNS: Temperature 98.1, pulse 93, respiratory rate 16, SpO2 of 93% on room air, blood pressure 145/85. I and O in the last 24 hours showed total intake of 2636 with output of 2500 and positive balance of 136. GENERAL: Comfortable healthy-looking elderly male, in no distress. Afebrile. Anicteric. Acyanotic. HEENT: Normocephalic, atraumatic. Oral mucosa is moist. CARDIOVASCULAR: Regular rhythm and rate with normal heart sounds 1 and 2. RESPIRATORY: Fair air entry bilaterally with no obvious crackle or rhonchi or use of accessory muscles. GI: Full, soft, nondistended with normal bowel sounds. Mild diffuse tenderness on deep palpation noted. UROGENITAL: Smith catheter is in place draining urine. EXTREMITIES: Grossly normal looking, atraumatic. No erythema or obvious edema appreciated. SALES AND MARKETING REPRESENTATIVE: Conscious, alert and oriented x3 with appropriate mental status. Cranial nerves 2 through 12 are grossly intact. DIAGNOSTIC DATA: CBC showed WBC count of 5.7, hemoglobin of 10.0, MCV of 104, platelet of 360. Renal function panel showed sodium 138, potassium 4.0, chloride 105, CO2 of 28, BUN 14, creatinine 0.74, glucose 68, calcium 8.0, phosphorus 3.0, magnesium 1.9, albumin 2.6. ASSESSMENT: 1. Acute kidney injury: Due to abdominal compartment syndrome related to uremic into the peritoneal cavity from distal peritoneal fistula. Renal function has resolved with creatinine back to baseline with Smith catheter placement and drainage of abdominal cavity. 2. Metabolic acidosis: Resolved. 3. Hyperkalemia: Resolved. 4. Nausea and vomiting: Improved. The patient is tolerating full liquid diet well. 5. Clostridium difficile colitis on treatment. 6. Systemic inflammatory response: Resolved. PLAN: 1. We will discontinue crystalloid therapy. [place] oral intake advised. Continue TPN for now. We will defer to General Surgery for diet advancement and discontinuation of TPN. Management of cystoperitoneal fistula as per Urology. 2. Nephrology will sign off at this time with resolution of renal function. Please call for any clarification or questions. Job ID: [id number]
--- NOTE | 2020-03-13 15:13 | PRG ---
DATE OF SERVICE: 03/13/2020 SUBJECTIVE: Mr. Murphy took very little in by mouth yesterday; however, this morning, he ate a whole bowl of oatmeal and that tasted good to him. He just mainly had some clear liquids later in the morning or for lunch. Overall, he feels much better. PHYSICAL EXAMINATION: VITAL SIGNS: Temperature 98.5, pulse 105, blood pressure 142/85. GENERAL: He is in no acute distress. Alert and oriented x3. LUNGS: Clear to auscultation bilaterally. HEART: Regular rate and rhythm. Mildly tachycardic. S1, S2. ABDOMEN: Soft, nontender, and nondistended. Bowel sounds are present. EXTREMITIES: No lower extremity edema. LABORATORY DATA: White blood cell count 5.7, hemoglobin 10.0, platelets 360. Creatinine 0.74. IMPRESSION: 1. Clostridium difficile colitis, status post complete course of vancomycin. He was also treated with IV metronidazole. His stools are still loose, but developing more formed now. Hopefully as he advances his diet, we will see continued improvement. 2. Bladder leak with ascites and abdominal compartment syndrome, improved, status post Smith catheter placement. RECOMMENDATIONS: 1. I will switch him to a low-fiber diet. 2. As he increases his oral intake, then the TPN can be discontinued. 3. I will sign off. Please call if GI can be of assistance. Job ID: [id number]
[2020-03-13] MEDS: Sodium Chloride 0.9% 1,000 ML IV SCH (17:37)
[2020-03-13] MEDS: SODIUM ACETATE IV SCH (22:31)
[2020-03-13] MEDS: SODIUM CHLORIDE IV SCH (22:31)
[2020-03-13] MEDS: [UNRECOGNIZED DRUG - OTHER] IV SCH (22:31)
[2020-03-13] MEDS: POTASSIUM ACETATE IV SCH (22:31)
[2020-03-14] MEDS: Acetaminophen 500 MG TAB PO PRN ×3 (05:36→21:38)
[2020-03-14 06:05] LABS: #Basophils 0.1 thou/uL (0.0-0.2); #Eosinphils 0.7 thou/uL (0.0-0.7); #Lymphocytes 1.3 thou/uL (1.20-3.40); #Monocytes 0.9 thou/uL (0.11-0.59); #Neutrophils 4.7 thou/uL (1.40-6.50); %Basophils 0.8 % (0.0-1.0); %Eosinophils 9.5 % (0.0-10.0); %Lymphocytes 16.4 % (21.0-51.0); %Monocytes 11.1 % (0.0-10.0); %Neutrophils 62.2 % (42.0-75.0); Hemoglobin 10.1 g/dL (14.0-18.0); Mean Corpuscular HGB CONC 31.6 g/dL (32.0-36.0); Mean Corpuscular Hemoglobin 32.6 pg (27.0-31.0); Mean Platelet Volume 6.9 fL (7.4-10.4); Platelet Count 344 thou/uL (130-400); RBC Distribution Width 11.8 % (11.5-14.5); Red Blood Cell (RBC) Count 3.11 mill/uL (4.70-6.10); White Blood Cell (WBC) Count 7.6 thou/uL (4.8-10.8)
[2020-03-14 06:16] LABS: Albumin 2.7 g/dL (3.4-4.8); Anion Gap 8 mmol/L (10-20); BUN (Urea Nitrogen) 17 mg/dL (8.4-25.7); BUN/Creatinine Ratio 20.48; Calc. Creatinine Clearance 108 mL/min (70-130); Calcium 8.2 mg/dL (7.8-10.44); Carbon Dioxide 27 mmol/L (23-31); Chloride 106 mmol/L (98-107); Estimated GFR-MDRD Greater than 90; Glucose 71 mg/dL (80-115); Potassium 4.4 mmol/L (3.5-5.1); Sodium 137 mmol/L (136-145)
[2020-03-14] MEDS: Apixaban 5 MG TAB PO SCH ×2 (09:06→20:20)
[2020-03-14] MEDS: Saccharomyces boulardii 250 MG CAP PO SCH (09:06)
[2020-03-14] MEDS: Pantoprazole 40 MG VIAL IVP SCH (09:06)
--- NOTE | 2020-03-14 14:26 | PRG ---
DATE OF SERVICE: 03/14/2020 SUBJECTIVE: Mr. Murphy remains on the surgical floor. He is hospital day #21 for readmission for nausea and vomiting following his prior robotic prostatectomy. He is postoperative day #14 from diagnostic laparoscopy which confirmed no evidence of small-bowel obstruction. He has a Smith catheter in place, which was replaced 4 days ago. Since the Smith catheter was replaced, he is doing well. He is tolerating his diet. It has been advanced to a solid and lactose-free diet. The patient tells me that he had about 3 bowel movements yesterday and they are firming up. He has a history of Clostridium difficile during this hospitalization, has completed a 2 week course of oral vancomycin. He is ambulating well and notes that he is feeling better. Of note, a cystogram obtained 3 days ago did reveal a small posterior bladder leak. OBJECTIVE: VITAL SIGNS: He is afebrile, his pulse is between 88 and 100, blood pressure is 135/80. Physical examination is unremarkable. LABORATORY DATA: His basic metabolic panel is normal. His albumin is 2.7. His CBC reveals a normal white blood cell count of 7.6 with a hemoglobin of 10.1. ASSESSMENT AND PLAN: He is doing well at this time with his Smith catheter in place. He is on a solid diet. He notes he has not vomited over the weekend. Today, I will begin to wean his TPN. He is currently receiving 98 mL/h and I will drop it down to 50 mL/h. If he continues in this fashion, I would anticipate discontinuing his TPN tomorrow. He will continue on his blood thinners as he was diagnosed with positive for deep venous thrombosis. I would anticipate discharge on March 16. I will notify Dr. Bautista so that he can make plans in regard to his Smith catheter. Job ID: [id number]
[2020-03-14] MEDS: [UNRECOGNIZED DRUG - OTHER] IV SCH ×4 (19:31→22:48)
[2020-03-14] MEDS: SODIUM CHLORIDE IV SCH ×4 (19:31→22:48)
[2020-03-14] MEDS: SODIUM ACETATE IV SCH ×4 (19:31→22:48)
[2020-03-14] MEDS: POTASSIUM ACETATE IV SCH ×4 (19:31→22:48)
[2020-03-15] MEDS: Apixaban 5 MG TAB PO SCH ×2 (10:13→21:07)
[2020-03-15] MEDS: Saccharomyces boulardii 250 MG CAP PO SCH (10:13)
--- NOTE | 2020-03-15 12:33 | PRG ---
DATE OF SERVICE: 03/15/2020 SUBJECTIVE: Mr. Murphy was examined on the surgical floor. He is hospital day #22 for readmission for nausea and vomiting following his prior robotic prostatectomy. He is postoperative day #15 from a diagnostic laparoscopy, which confirmed no evidence of small bowel obstruction. He has a Smith catheter in place, which was replaced [address] Bautista. He has no complaints at this time. He tells me he is eating well and has had a couple of good bowel movements yesterday. He has no nausea or vomiting. OBJECTIVE: VITAL SIGNS: On examination today, he is afebrile, he is little tachycardic to a heart rate of 114 and I am not certain why. Blood pressure is 143/83. LUNGS: Clear to auscultation. ABDOMEN: Has normoactive bowel sounds. All incisions were nicely healed. It is soft and nontender. LABORATORY DATA: He did not have a CBC today nor did he have a metabolic panel. His glucose levels remain normal. ASSESSMENT: He appears to be stable and improving. I will wean his TPN to off and discontinue it at 10 o'clock this evening. Assuming he remains stable, he should be ready for discharge tomorrow. He is currently on Eliquis for his deep venous thrombosis. He has completed a course of treatment for his Clostridium difficile infection. Smith catheter remains in place and Dr. Bautista plans on discharge with a Smith in place. I believe he intends to get an outpatient cystogram, although not certain exactly when. Job ID: [id number]
[2020-03-15] MEDS: Acetaminophen 500 MG TAB PO PRN (18:48)
--- NOTE | 2020-03-15 19:27 | PRG ---
DATE OF SERVICE: 03/15/2020 SUBJECTIVE: The patient states he is feeling tremendously better. While his appetite is not perfect, he has been able to tolerate some food intake. He is still on TPN. Apparently, the patient had a catheter replaced several days ago by myself on March 10. Since then, the patient has had significant diuresis of urine output and complete resolution of his ileus, his creatinine and his abdominal pain. This suggested that he indeed was actually in urinary retention with a urinary leak developing urinary ascites, significant peritonitis and inflammation resulting in worsening ileus, reabsorption of creatinine through the peritoneum resulting in elevating creatinine as well as abdominal pain. With placement of the catheter, the patient has shown significant and tremendous improvement. A cystogram performed the day after catheter placement does show the catheter within the urinary bladder on my imaging with an immediate leak on the posterior aspect of the urethra. As such, this is probably the source of the patient's urinary ascites. I suspect that some of the urine output was drainage of the urinary ascites along with drainage of the patient's bladder. At the current time, I do not feel it is necessary to take the catheter out more to perform any repeat imaging as he seems to be doing well. He has no other complaints. OBJECTIVE: VITAL SIGNS: Temperature 98.4, pulse 69, respirations 18, blood pressure 116/80, and saturation 97% on room air. GENERAL: No apparent distress. Communicative and alert. CARDIOVASCULAR: Regular rate and rhythm. ABDOMEN: Soft, nontender, and nondistended. Positive bowel sounds. Incision is clean, dry, and intact, healing well. GENITOURINARY: Smith catheter in place, draining clear yellow urine. EXTREMITIES: No clubbing, cyanosis, or edema. LABORATORY DATA: On laboratory evaluation, there are no new labs today. ASSESSMENT AND PLAN: A 69-year-old white male with prostate cancer, status post robotic prostatectomy with postoperative ileus secondary to Clostridium difficile colitis, which then resulted in deep vein thrombosis for prolonged hospitalization and decreased mobility along with pelvic surgery. While he seemed to be improving initially once he had his catheter removed, he began to go back downhill now apparently secondary to a urine leak, which has been discovered. This has resolved with replacement of the Smith catheter. I would recommend keeping the catheter in for at least 2 weeks, at which point, we will perform a cystogram again. If the cystogram shows a persistent leak, the catheter will be left in longer. If the urine leak is gone, the catheter can be removed more safely. I will handle this on an outpatient basis. I do feel that the patient can be discharged when deemed reasonable by the Primary Team. Job ID: [id number]
[2020-03-15] MEDS: SODIUM ACETATE IV SCH (22:53)
[2020-03-15] MEDS: SODIUM CHLORIDE IV SCH (22:53)
[2020-03-15] MEDS: [UNRECOGNIZED DRUG - OTHER] IV SCH (22:53)
[2020-03-15] MEDS: POTASSIUM ACETATE IV SCH (22:53)
[2020-03-16] MEDS: Acetaminophen 500 MG TAB PO PRN (06:23)
[2020-03-16] MEDS: Apixaban 5 MG TAB PO SCH (08:50)
[2020-03-16] MEDS: Saccharomyces boulardii 250 MG CAP PO SCH (08:50)
--- NOTE | 2020-03-16 10:01 | PRG ---
DATE OF SERVICE: 03/16/2020 SUBJECTIVE: Mr. Murphy feels well today. He is hospital day #23 for readmission for nausea and vomiting following his prior robotic prostatectomy. His diet had been advanced recently and is tolerating this nicely. I weaned his TPN and turned it off last night. He has tolerated his diet today and continues to have appropriate bowel function. He denies pain or significant complaints. He was seen by Dr. Bautista yesterday, who has arranged for his continued followup in regard to his current Smith catheter and recovery from his prostatectomy. OBJECTIVE: VITAL SIGNS: On examination, he is afebrile. Pulse is 95 and blood pressure is 141/80. LUNGS: Clear. ABDOMEN: Benign. ASSESSMENT AND PLAN: The patient is doing well following his recovery from several different problems. He has been found during this hospitalization to have a postoperative ileus, Clostridium difficile colitis, deep venous thrombosis, and a urine leak related to his robotic prostatectomy. He is stable for discharge at this time. His central line has been removed. He will be discharged with Smith catheter in place. His incisions are all appropriately healed as it has been over two weeks since I did his surgery, I do not really need to see him in followup for anything surgically. I have given the patient my card and encouraged him to call me or come and see me if he has any problems or questions. Otherwise, I will see him in the future on a p.r.n. basis. Job ID: [id number]
[2020-03-16 11:43] VITALS: BP 126/79; TEMP 98.3
--- NOTE | 2020-03-17 07:20 | PQF ---
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 Clinical indicators are provided on the bottom of this form for your review Can you please further clarify if Clostridium Difficile is a complication of recent prostatectomy or not? Please check appropriate box(s): [ x ] Clostridium Difficile is a complication of recent prostatectomy [ ] Clostridium Difficile is not a complication of recent prostatectomy [ ] Other diagnosis please specify [ ] Unable to determine In addition, please specify: Present on Admission (POA): [ ] Yes [ ] No [ x] Unable to determine CLINICAL INDICATORS - SIGNS / SYMPTOMS / LABS H and P pg.1- "Abdominal pain" H and P pg.1- typical Postoperative ileus H and P pg.1- underwent radical prostatectomy on 02/18/20 Consult pg.2 Eric Donnelly- Resolving postoperative ileus PN 03/15 pg.1- status post robotic prostatectomy with postoperative ileus secondary to clostridium difficile Labs WBC: 02/26=12.4 02/27=18.3 03/09=12.2 03/10=13.7 Collected 02/23 Stool Culture: C.diff antigen ED Notes 02/21 patient presents for evaluation of abdominal pain H and P pg.1- CT scan confirmed the concern for post-op ileus vs intra- abdominal wound infection RISK FACTORS S/p prostatectomy- H and P pg.1 Prostate cancer- H and P pg.2 UTI- H ad P pg.2 69 years old- H and P pg.1 Malnutrition- OP report pg.1s TREATMENT: Small bowel X ray 4/ Abdomen/Pelvis CT 02/21 General Surgery consult- Dr. Reyes 02/22 IV Fluids- MAR Diagnostic laparoscopy- OP report pg.1 Stool culture-Microbiology IV Antibiotics- MAR (This form is maintained as a part of the permanent medical record) 2014 [employer]. All Rights Reserved [email or web address]
== END 2020-03-16 14:25 | disposition home or self-care (01) | DRG 856 ==
LOC: ERS 17:43 → SURG B 20:55 → SURG A 03-02 21:26 → CCU 03-09 17:29 → SURG B 03-11 11:18
PROVIDERS: ADMIT Specialist; ATTEND Specialist
PROC: 0WJG4ZZ Inspection of Peritoneal Cavity, Percutaneous Endoscopic Approach (ICD-10-PCS; principal; 2020-02-29)
PROC: 8E0W8CZ Robotic Assisted Procedure of Trunk Region, Via Natural or Artificial Opening Endoscopic (ICD-10-PCS; 2020-02-29)
PROC: 02HV33Z Insertion of Infusion Device into Superior Vena Cava, Percutaneous Approach (ICD-10-PCS; 2020-02-29)
PROC: 3E0336Z Introduction of Nutritional Substance into Peripheral Vein, Percutaneous Approach (ICD-10-PCS; 2020-02-29)
PROC: 3E1H78Z Irrigation of Lower GI using Irrigating Substance, Via Natural or Artificial Opening (ICD-10-PCS; 2020-03-01)
PROC: 0T9B70Z Drainage of Bladder with Drainage Device, Via Natural or Artificial Opening (ICD-10-PCS; 2020-03-10)
DX: T81.40XA Infection following a procedure, unspecified, initial encounter (principal); K65.9 Peritonitis, unspecified; A04.72 Enterocolitis due to Clostridium difficile, not specified as recurrent; N39.0 Urinary tract infection, site not specified; K56.7 Ileus, unspecified; E44.1 Mild protein-calorie malnutrition; I82.441 Acute embolism and thrombosis of right tibial vein; N17.9 Acute kidney failure, unspecified; E87.2 Acidosis; R65.10 Systemic inflammatory response syndrome (SIRS) of non-infectious origin without acute organ dysfunction; E87.3 Alkalosis; M79.A3 Nontraumatic compartment syndrome of abdomen; R18.8 Other ascites; K55.9 Vascular disorder of intestine, unspecified; E87.6 Hypokalemia; Y83.8 Other surgical procedures as the cause of abnormal reaction of the patient, or of later complication, without mention of misadventure at the time of the procedure; E86.1 Hypovolemia; D47.3 Essential (hemorrhagic) thrombocythemia; D72.829 Elevated white blood cell count, unspecified; E87.5 Hyperkalemia; T83.031A Leakage of indwelling urethral catheter, initial encounter; Z68.26 Body mass index [BMI] 26.0-26.9, adult; Z88.5 Allergy status to narcotic agent; Z85.46 Personal history of malignant neoplasm of prostate
CPT/HCPCS: 36415; 36416; 51600; 71045; 74018; 74019; 74022; 74176; 74177; 74250; 74270; 74430; 76770; 80048; 80053; 80061; 80069; 80076; 80400; 81001; 81003; 81015; 82570; 82607; 82746; 83605; 83690; 83735; 84100; 84134; 84156; 84300; 84540; 85007; 85025; 85027; 85610; 85730; 87040; 87086; 87324; 87449; 87493; 93970; 96361; 96374; A4217; C9113; J0696; J0834; J1100; J1644; J1650; J1815; J1940; J2001; J2270; J2405; J2704; J2765; J3010; J3370; J3475; J3480; J3490; J7050; J7070; J7121; P9047; Q9963; Q9967; S0020; S0028

== ENCOUNTER 2020-03-29 08:43 | Outpatient (CLI) | payer MEDICARE, BC ==
[2020-03-29] MEDS ORDERED: Iopamidol-370 76% 500 ML 1 ML ONE (09:32)
--- NOTE | 2020-03-29 09:57 | RAD ---
CYSTOGRAM: HISTORY: Assess for urine leak. COMPARISON: 03/11/2020. EXPOSURE: 1.8 minutes, 188.15 mGy. FINDINGS: Initial peoplesoft hcm developer radiograph demonstrates normal-appearing osseous structures in the visualized bony pelv is. Patient was administered a total of 150 cc of water-soluble contrast which was instilled in a retrogr dawson fashion via an indwelling Smith catheter. There is no evidence of leak or extravasation. Previously noted focus of leak/extravasation does not persist, along the posterior right bladder base . There does appear to be a small amount of reflux of contrast into the distal left ureter. Contrast within the bladder was drained. No significant residual contrast or leak on the postprocedur e images. IMPRESSION: 1. No evidence of a bladder base leak. 2. Small amount of vesicoureteral reflux involving the distal left ureter. Transcribed Date/Time: 03/29/2020 11:01 AM
== END 2020-03-29 08:44 | disposition home or self-care (01) ==
LOC: RAD 08:43
PROVIDERS: ATTEND Urology
DX: T83.89XA Other specified complication of genitourinary prosthetic devices, implants and grafts, initial encounter (principal); N13.70 Vesicoureteral-reflux, unspecified
CPT/HCPCS: 51600; 74430; Q9967